=== PATIENT | female | born 2005 | race Hispanic/Latino ===

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

== ENCOUNTER 2024-09-25 22:44 | Emergency (ER) | payer BC, OTHER ==
--- OUTSIDE RECORDS SUMMARY | 2024-09-25 22:52 | XMS REPORT | Continuity of Care Document ---
Author Name Unknown Address [address] [facility] Ravindra[address] [place] [address] [facility] Address [address] [facility]. 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 Role Phone OLGA DURAND Primary Care Physician Unavailab Sergio Finley Attending Clinician + [phone] SERGIO LEON Attending Clinician Unavail able Doctor Unassigned, [place] Attending Clinician U RAUL Curiel Attending Clinician Unavailable Raul Soriano Attending Clinician [phone] Eri Jackson Attending Clinician [phone] CASSANDRA ELIZONDO Attending Clinician Unavailable ELOISE LONG Attending Clinician Unavailable BRONWYN MAGALLANES Attending Clinician Unavailable Tri Solomon MD Attending Clinician [phone] TRI SOLOMON Attending Clinician Unavailable MICHELE CHAMBERS III Attending Clinician Unavaila TRI Silva Admitting Clinician Unavailable MICHELE CHAMBERS III Admitting Clinician Unavaila kasey Payers Payer Name Policy Type Policy Number Effective Date Expirati on Date Source [facility] [id number] 2016 00:00:00 Problems Condition Name Condition Details Condition Category Status Onset Date Resolution Date Last Treatment Date Treating Clinician Comments Source No known active problems No known active problems Disease [facility] Allergies, Adverse Reactions, Alerts Allergy Name Allergy Type Status Severity Reaction(s) Onset Date Inactive Date Treating Clinician Comments Source NO KNOWN ALLERGIE S Drug Class Active [facility] Social History Social Habit Start Date Stop Date Quantity Comments Source Sexual orientation U [facility] Exposure to SARS-CoV-2 (event) Not sure [facility] History of Social function 2021-11-10 00:00:00 2021-11-10 00:00:00 [facility] Sex assigned at 2003 00:00:00 2005 00:00:00 [facility] Smoking Status Start Date Stop Date Source Never smoked tobacco [facility] Medications Ordered Medication Name Filled Medication Name Start Date Stop Date Current Medication? Ordering Clinician Indication Dosage Frequency Signature (SIG) Comments Components Source Carafate 1 gram tablet - 00:00: 00 Yes 1gram Earnest Foy ondansetron 4 mg disintegrat ing tablet - 00:00: 00 Yes 12mg Earnest Foy metronidazo le 500 mg tablet - 00:00: 00 Yes 1mg Earnest Foy buspirone 5 mg tablet - 00:00: 00 Yes 12mg Earnest Foy buspirone 5 mg tablet 5-08 00:00: 00 Yes 1mg Earnest Foy medroxyprog esterone 10 mg tablet -29 00:00: 00 Yes 2mg Earnest Foy metronidazo le 500 mg tablet 4-17 00:00: 00 Yes 1mg Earnest Foy buspirone 10 mg tablet 4-16 00:00: 00 Yes 1mg Earnest Foy metronidazo le 500 mg tablet 3- 00:00: 00 Yes 1mg Earnest Foy azithromyci n 500 mg tablet 3-26 00:00: 00 Yes 1mg Earnest Foy 1 TABLET TWICE DAILY X 7 DAYS 1-12 00:00: 00 12-09 00:00 :00 No 500 Earnest Foy MUPIROCIN OIN 2% 1-03 00:00: 00 Yes Earnest Foy TAKE 1 TABLET EVERY 6 TO 8 HOURS NEEDED. 2022-07 00:00: 00 12-09 00:00 :00 No 400 Earnest Foy TAKE 1 TABLET EVERY 8 HOURS NEEDED FOR NAUSEA AND VOMITING. 2022-07 00:00: 00 12-09 00:00 :00 No 8 Earnest Foy TAKE 1 CAPSULE TWICE DAILY. 2022-07 00:00: 00 12-09 00:00 :00 No 300 Earnest Foy MUPIROCIN OIN 2% 2022-07 00:00: 00 12-09 00:00 :00 No Earnest Foy METRONIDAZO L 04-22 00:00: 00 12-09 00:00 :00 No Earnest Foy 1 TABLET TWICE DAILY X 7 DAYS 04-21 00:00: 00 12-09 00:00 :00 No 500 Earnest Foy TAKE 5 ML EVERY 4 TO 6 HOURS NEEDED. 03-27 00:00: 00 12-09 00:00 :00 No [id number] Earnest Foy 2 TABS OF NIRMATRELVI R 150MG AND 1 TAB OF RITONAVIR 100MG TWICE A DAY FOR 5 DAYS 03-27 00:00: 00 12-09 00:00 :00 No Earnest Foy 1 TABLET TWICE DAILY X 7 DAYS 03-27 00:00: 00 12-09 00:00 :00 No 500 Earnest Foy ondansetron (ZOFRAN (PF)) injection 4 mg 11-11 05:30: 00 11-11 04:31 :00 No 4mg 4 mg, Slow IV Push, ONCE, 1 dose, On 11/11/21 at 0030, BANDAR [facility] ondansetron (ZOFRAN (PF)) injection 4 mg 11-11 04:45: 00 11-11 03:48 :00 No 4mg 4 mg, Slow IV Push, ONCE, 1 dose, On 11/10/21 at 2345, BANDAR [facility] famotidine (PEPCID (PF)) injection 20 mg 11-11 04:45: 00 11-11 03:48 :00 No 20mg 20 mg, Slow IV Push, ONCE, 1 dose, On 11/10/21 at 2345, BANDAR [facility] dicyclomine (BENTYL) injection 20 mg 11-11 04:45: 00 11-11 03:49 :00 No 20mg 20 mg, Intramuscu lar, ONCE, 1 dose, On 11/10/21 at 2345, Routine [facility] NaCl 0.9% (NS) bolus infusion 1,000 mL 11-11 04:45: 00 11-11 04:51 :00 No 1000mL at 999 mL/hr, 1,000 mL, IV Infusion, ONCE, 1 dose, On 11/10/21 at 2345, STAT [facility] ASPIRIN (ASPIR-81 ORAL) 11-10 22:34: 03 Yes Take by mouth. [facility] ondansetron 4 mg tablet 11-10 00:00: 00 Yes [id number] 4mg Take 1 tablet by mouth every 8 (eight) hours as needed for Nausea and Vomiting (N/V). [facility] dicyclomine 20 mg tablet 11-10 00:00: 00 Yes [id number] 20mg Take 1 tablet by mouth 4 (four) times daily as needed for Abdominal pain. [facility] omeprazole 40 mg capsule 11-10 00:00: 00 12-11 04:59 :00 No [id number] 40mg Take 1 capsule by mouth daily for 30 days. [facility] amoxicillin -clavulanat e (AUGMENTIN) 875-125 mg per tablet 1 tablet 02-10 20:45: 00 02-10 19:42 :00 No 1{tbl} 1 tablet, Oral, ONCE NOW, 1 dose, 02/10/21 at 1545, BANDAR
Re ason for Anti-Infec tive: Documented Infection< br>Documen sundeep Infection Site: Skin / Soft Tissue
Duration of Therapy: 7 days [facility] clindamycin (CLEOCIN HCL) capsule 300 mg 02-10 20:45: 00 02-10 19:42 :00 No 300mg 300 mg, Oral, ONCE NOW, 1 dose, 02/10/21 at 1545, BANDAR
Re ason for Anti-Infec tive: Documented Infection< br>Documen sundeep Infection Site: Skin / Soft Tissue
Duration of Therapy: 7 days
Re stricted use approved by: ED PROVIDER<b r>Indicati on for Clindamyci n use: preseptal cellulitis [facility] clindamycin 300 mg capsule 02-10 00:00: 00 02-18 04:59 :00 No [id number] 300mg Take 1 capsule by mouth 3 (three) times daily for 7 days. [facility] amoxicillin -clavulanat e 875-125 mg per tablet 02-10 00:00: 00 02-18 04:59 :00 No [id number] 1{tbl} Take 1 tablet by mouth 2 (two) times daily for 7 days. [facility] ASPIRIN (ASPIR-81 ORAL) 09-23 01:21: 12 Yes Take by mouth. [facility] naproxen 375 mg tablet 09-22 00:00: 00 11-10 00:00 :00 No [id number] 375mg Take 1 tablet by mouth 2 (two) times daily with meals. [facility] Nitrofurant oin&Nit. Macrocryst (MACROBID) 100 mg capsule 09-22 00:00: 00 11-10 00:00 :00 No [id number] 100mg Take 1 capsule by mouth 2 (two) times daily. [facility] phenazopyri dine 200 mg tablet 09-22 00:00: 00 11-10 00:00 :00 No [id number] 200mg Take 1 tablet by mouth 3 (three) times daily. [facility] proMETHazin e 25 mg tablet 2018-07 00:00: 00 11-10 00:00 :00 No [id number] 25mg Take 1 tablet by mouth every 6 (six) hours as needed for Nausea and Vomiting (N/V). [facility] Immunizations Ordered Immunization Name Filled Immunization Name Date Status Comments Source Hep B, adult Hep B, adult 2024-02-27 00:00:00 Completed Earnest Foy Influenza, injectable, Madin [place] Canine Kidney, preservative-free, quadrivalent Influenza, injectable, Madin [place] Canine Kidney, preservative-free, quadrivalent 2023-08-05 00:00:00 Completed Earnest Foy influenza, injectable influenza, injectable 2022-09-02 00:00:00 Completed Earnest Foy meningococcal B, OMV meningococcal B, OMV 2021-10-30 00:00:00 Completed Earnest Foy influenza, injectable influenza, injectable 2021-07-13 00:00:00 Completed Earnest Foy meningococcal B, OMV meningococcal B, OMV 2020-11-24 00:00:00 Completed Earnest Foy HPV9 HPV9 2020-11-24 00:00:00 Completed Earnest Foy meningococcal MCV4P meningococcal MCV4P 00:00:00 Completed Earnest Foy SARS-COV-2 COVID-19 MODERNA VACCINE 2020-09-05 00:00:00 Completed [facility] SARS-COV-2 COVID-19 MODERNA 12+ YRS VACCINE 2020-09-05 00:00:00 Completed [facility] SARS-COV-2 COVID-19 MODERNA VACCINE 2020-09-05 00:00:00 Completed [facility] SARS-COV-2 COVID-19 MODERNA VACCINE 2020-09-05 00:00:00 Completed [facility] SARS-COV-2 COVID-19 MODERNA VACCINE 2020-08-08 00:00:00 Completed [facility] SARS-COV-2 COVID-19 MODERNA 12+ YRS VACCINE 2020-08-08 00:00:00 Completed [facility] SARS-COV-2 COVID-19 MODERNA VACCINE 2020-08-08 00:00:00 Completed [facility] SARS-COV-2 COVID-19 MODERNA VACCINE 2020-08-08 00:00:00 Completed [facility] influenza, live, intrana influenza, live, intrana 2018-08-06 00:00:00 Completed Earnest Foy HPV9 HPV9 2018-02-24 00:00:00 Completed Earnest Foy meningococcal MCV4P meningococcal MCV4P 00:00:00 Completed Earnest Foy Tdap Tdap 2014-12-09 00:00:00 Completed Earnest Oliver Foy influenza, injectable influenza, injectable 2013-06-29 00:00:00 Completed Earnest Foy influenza, live, intrana influenza, live, intrana 2011-07-01 00:00:00 Completed Earnest Foy Hep A, ped/adol, 2 dose Hep A, ped/adol, 2 dose 2008-12-15 00:00:00 Completed Earnest Oliver Foy varicella varicella 2007-10-29 00:00:00 Completed Earnest Oliver Foy pneumococcal conjugate P pneumococcal conjugate P 2007-08-11 00:00:00 Completed Earnest Oliver Foy DTaP, unspecified formul DTaP, unspecified formul 2007-08-11 00:00:00 Completed Earnest Foy Hep A, ped/adol, 2 dose Hep A, ped/adol, 2 dose 2007-07-10 00:00:00 Completed Earnest Oliver Foy MMR MMR 2007-07-10 00:00:00 Completed Earnest Foy IPV IPV 2007-07-10 00:00:00 Completed Earnest Foy DTaP, unspecified formul DTaP, unspecified formul 2007-07-10 00:00:00 Completed Earnest Oliver Foy Influenza, seasonal, inj Influenza, seasonal, inj 2004-06-12 00:00:00 Completed Earnest Oliver Foy Hib (PRP-T) Hib (PRP-T) 2004-06-12 00:00:00 Completed Earnest Oliver Foy MMR MMR 2004-06-12 00:00:00 Completed Earnest Oliver Foy varicella varicella 2004-06-12 00:00:00 Completed Earnest Oliver Law Hep B, adolescent or ped Hep B, adolescent or ped 2004-01-20 00:00:00 Completed Earnest Oliver Law Hib (PRP-T) Hib (PRP-T) 2004-01-20 00:00:00 Completed Earnest Oliver Law IPV IPV 2004-01-20 00:00:00 Completed Earnest Foy DTaP, unspecified formul DTaP, unspecified formul 2004-01-20 00:00:00 Completed Earnest Foy Hib (PRP-T) Hib (PRP-T) 2003 00:00:00 Completed Earnest Foy pneumococcal conjugate P pneumococcal conjugate P 2003 00:00:00 Completed Earnest Foy IPV IPV 2003 00:00:00 Completed Earnest Foy DTaP, unspecified formul DTaP, unspecified formul 2003 00:00:00 Completed Earnest Foy Hep B, adolescent or ped Hep B, adolescent or ped 2003 00:00:00 Completed Earnest Foy Hib (PRP-T) Hib (PRP-T) 2003 00:00:00 Completed Earnest Foy pneumococcal conjugate P pneumococcal conjugate P 2003 00:00:00 Completed Earnest Foy IPV IPV 2003 00:00:00 Completed Earnest Foy DTaP, unspecified formul DTaP, unspecified formul 2003 00:00:00 Completed Earnest Foy Hep B, adolescent or ped Hep B, adolescent or ped 2003 00:00:00 Completed Earnest Foy SARS-COV-2 COVID-19 MODERNA 12+ YRS VACCINE Unknown Completed [facility] Vital Signs Vital Name Observation Time Observation Value Comments S ource Systolic blood pressure 2021-11-11 04:01:00 117 mm[Hg] [facility] Diastolic blood pressure 2021-11-11 04:01:00 78 mm[Hg] [facility] Heart rate 2021-11-11 04:01:00 86 /min [facility] Respiratory rate 2021-11-11 04:01:00 16 /min [facility] Oxygen saturation in Arterial blood by Pulse oximetry 2021-11-11 04:01:00 95 /min [facility] Body temperature 2021-11-11 03:38:20 36.89 Katarzyna [facility] Body height 2021-11-11 03:32:00 157.5 cm [facility] Body weight 2021-11-11 03:32:00 54.432 kg [facility] BMI 2021-11-11 03:32:00 21.95 kg/m2 [facility] Body mass index (BMI) [Percentile] Per age and sex 2021-11-11 03:32:00 56.73 % [facility] Systolic blood pressure 2021-02-10 17:20:00 114 mm[Hg] [facility] Diastolic blood pressure 2021-02-10 17:20:00 82 mm[Hg] [facility] Heart rate 2021-02-10 17:20:00 95 /min [facility] Body temperature 2021-02-10 17:20:00 36.78 Katarzyna [facility] Respiratory rate 2021-02-10 17:20:00 18 /min [facility] Body weight 2021-02-10 17:20:00 54.432 kg [facility] Oxygen saturation in Arterial blood by Pulse oximetry 2021-02-10 17:20:00 95 /min [facility] Systolic blood pressure 2019-09-23 03:00:00 128 mm[Hg] [facility] Diastolic blood pressure 2019-09-23 03:00:00 72 mm[Hg] [facility] Heart rate 2019-09-23 03:00:00 98 /min [facility] Respiratory rate 2019-09-23 03:00:00 18 /min [facility] Oxygen saturation in Arterial blood by Pulse oximetry 2019-09-23 03:00:00 98 /min [facility] Body temperature 2019-09-23 01:20:00 36.94 Katarzyna [facility] Body height 2019-09-23 01:20:00 157.5 cm [facility] Body weight 2019-09-23 01:20:00 52.164 kg [facility] BMI 2019-09-23 01:20:00 21.03 kg/m2 [facility] Systolic blood pressure 2019-09-23 03:00:00 128 mm[Hg] [facility] Diastolic blood pressure 2019-09-23 03:00:00 72 mm[Hg] [facility] Heart rate 2019-09-23 03:00:00 98 /min [facility] Respiratory rate 2019-09-23 03:00:00 18 /min [facility] Oxygen saturation in Arterial blood by Pulse oximetry 2019-09-23 03:00:00 98 /min [facility] Body temperature 2019-09-23 01:20:00 36.94 Katarzyna [facility] Body height 2019-09-23 01:20:00 157.5 cm [facility] Body weight 2019-09-23 01:20:00 52.164 kg [facility] BMI 2019-09-23 01:20:00 21.03 kg/m2 [facility] BP Systolic 2024-09-20 15:54:00 121 mm[Hg] Step hen F Law BP Diastolic 2024-09-20 15:54:00 67 mm[Hg] Ravindra phen F Law Weight Measured 2024-09-20 15:54:00 125.20 pounds Earnest F Law Height Measured 2024-09-20 15:54:00 62.00 inches Earnest F Law Body Temperature 2024-09-20 15:54:00 98.40 degrees Earnest F Law Heart Rate 2024-09-20 15:54:00 123.00 /min Step hen F [facility] Respiratory Rate 2024-09-20 15:54:00 14.00 /min Earnest F Law BP Systolic 2024-02-27 13:39:00 120 mm[Hg] Step hen F Law BP Diastolic 2024-02-27 13:39:00 75 mm[Hg] Ravindra phen F Law Weight Measured 2024-02-27 13:39:00 145.00 pounds Earnest F Law Height Measured 2024-02-27 13:39:00 62.00 inches Earnest F Law Body Temperature 2024-02-27 13:39:00 98.00 degrees Earnest F Law Heart Rate 2024-02-27 13:39:00 80.00 /min Kaylynn en F Law Respiratory Rate 2024-02-27 13:39:00 Earnest F Law BP Systolic 2024-02-23 16:34:00 124 mm[Hg] Step hen F Law BP Diastolic 2024-02-23 16:34:00 70 mm[Hg] Ravindra phen F Law Weight Measured 2024-02-23 16:34:00 145.60 pounds Earnest F Law Height Measured 2024-02-23 16:34:00 62.00 inches Earnest F Law Body Temperature 2024-02-23 16:34:00 98.00 degrees Earnest F Law Heart Rate 2024-02-23 16:34:00 86.00 /min Kaylynn en F Law Respiratory Rate 2024-02-23 16:34:00 Earnest F Law BP Systolic 2024-02-17 17:22:00 109 mm[Hg] Step hen F Law BP Diastolic 2024-02-17 17:22:00 67 mm[Hg] Ravindra phen F Law Weight Measured 2024-02-17 17:22:00 144.20 pounds Earnest F Law Height Measured 2024-02-17 17:22:00 62.00 inches Earnest F Law Body Temperature 2024-02-17 17:22:00 98.00 degrees Earnest F Law Heart Rate 2024-02-17 17:22:00 105.00 /min Step hen F Law Respiratory Rate 2024-02-17 17:22:00 Earnest F Law BP Systolic 2023-12-03 17:42:00 116 mm[Hg] Step hen F Law BP Diastolic 2023-12-03 17:42:00 72 mm[Hg] Ravindra phen F Law Weight Measured 2023-12-03 17:42:00 149.00 pounds Earnest F Law Height Measured 2023-12-03 17:42:00 62.00 inches Earnest F Law Body Temperature 2023-12-03 17:42:00 98.00 degrees Earnest F Law Heart Rate 2023-12-03 17:42:00 103.00 /min Step hen F Law Respiratory Rate 2023-12-03 17:42:00 Earnest F Law BP Systolic 2023-11-24 16:37:00 115 mm[Hg] Step hen F Law BP Diastolic 2023-11-24 16:37:00 75 mm[Hg] Ravindra phen F Law Weight Measured 2023-11-24 16:37:00 150.80 pounds Earnest F Law Height Measured 2023-11-24 16:37:00 62.00 inches Earnest F Law Body Temperature 2023-11-24 16:37:00 98.30 degrees Earnest F Law Heart Rate 2023-11-24 16:37:00 78.00 /min Kaylynn en F Law Respiratory Rate 2023-11-24 16:37:00 Earnest F Law BP Systolic 2023-11-11 17:26:00 120 mm[Hg] Step hen F Law BP Diastolic 2023-11-11 17:26:00 77 mm[Hg] Ravindra phen F Law Weight Measured 2023-11-11 17:26:00 150.80 pounds Earnest F Law Height Measured 2023-11-11 17:26:00 62.00 inches Earnest F Law Body Temperature 2023-11-11 17:26:00 98.20 degrees Earnest F Law Heart Rate 2023-11-11 17:26:00 75.00 /min Kaylynn en F Law Respiratory Rate 2023-11-11 17:26:00 Earnest F Law BP Systolic 2023-10-17 17:43:00 111 mm[Hg] Step hen F Law BP Diastolic 2023-10-17 17:43:00 60 mm[Hg] Ravindra phen F Law Weight Measured 2023-10-17 17:43:00 147.20 pounds Earnest F Law Height Measured 2023-10-17 17:43:00 62.00 inches Earnest F Law Body Temperature 2023-10-17 17:43:00 98.50 degrees Earnest F Law Heart Rate 2023-10-17 17:43:00 110.00 /min Step hen F Law Respiratory Rate 2023-10-17 17:43:00 Earnest F Law BP Systolic 2023-08-19 15:30:00 120 mm[Hg] Step hen F Law BP Diastolic 2023-08-19 15:30:00 72 mm[Hg] Ravindra phen F Law Weight Measured 2023-08-19 15:30:00 144.40 pounds Earnest F Law Height Measured 2023-08-19 15:30:00 62.00 inches Earnest F Law Body Temperature 2023-08-19 15:30:00 98.20 degrees Earnest F Law Heart Rate 2023-08-19 15:30:00 95.00 /min Kaylynn en F Law Respiratory Rate 2023-08-19 15:30:00 Earnest F Law BP Systolic 2023-08-08 10:53:00 101 mm[Hg] Step hen F Law BP Diastolic 2023-08-08 10:53:00 68 mm[Hg] Ravindra phen F Law Weight Measured 2023-08-08 10:53:00 145.20 pounds Earnest F Law Height Measured 2023-08-08 10:53:00 62.00 inches Earnest F Law Body Temperature 2023-08-08 10:53:00 98.10 degrees Earnest F Law Heart Rate 2023-08-08 10:53:00 138.00 /min Step hen F Law Respiratory Rate 2023-08-08 10:53:00 Earnest F Law BP Systolic 2023-08-05 17:11:00 113 mm[Hg] Step hen F Law BP Diastolic 2023-08-05 17:11:00 73 mm[Hg] Ravindra phen F Law Weight Measured 2023-08-05 17:11:00 145.00 pounds Earnest F Law Height Measured 2023-08-05 17:11:00 62.00 inches Earnest F Law Body Temperature 2023-08-05 17:11:00 98.00 degrees Earnest F Law Heart Rate 2023-08-05 17:11:00 90.00 /min Kaylynn en F Law Respiratory Rate 2023-08-05 17:11:00 Earnest F Law BP Systolic 2023-06-24 08:41:00 121 mm[Hg] Step hen F Law BP Diastolic 2023-06-24 08:41:00 67 mm[Hg] Ravindra phen F Law Weight Measured 2023-06-24 08:41:00 142.20 pounds Earnest F Law Height Measured 2023-06-24 08:41:00 62.00 inches Earnest F Law Body Temperature 2023-06-24 08:41:00 97.80 degrees Earnest F Law Heart Rate 2023-06-24 08:41:00 88.00 /min Kaylynn en F Law Respiratory Rate 2023-06-24 08:41:00 Earnest F Law BP Systolic 2023-06-17 17:26:00 118 mm[Hg] Step hen F Law BP Diastolic 2023-06-17 17:26:00 70 mm[Hg] Ravindra phen F Law Weight Measured 2023-06-17 17:26:00 141.20 pounds Earnest F Law Height Measured 2023-06-17 17:26:00 62.00 inches Earnest F Law Body Temperature 2023-06-17 17:26:00 98.00 degrees Earnest F Law Heart Rate 2023-06-17 17:26:00 85.00 /min Kaylynn en F Law Respiratory Rate 2023-06-17 17:26:00 Earnest F Law BP Systolic 2023-05-13 17:08:00 127 mm[Hg] Step hen F Law BP Diastolic 2023-05-13 17:08:00 85 mm[Hg] Ravindra phen F Law Weight Measured 2023-05-13 17:08:00 136.00 pounds Earnest F Law Height Measured 2023-05-13 17:08:00 62.00 inches Earnest F Law Body Temperature 2023-05-13 17:08:00 98.70 degrees Earnest F Law Heart Rate 2023-05-13 17:08:00 85.00 /min Kaylynn en F Law Respiratory Rate 2023-05-13 17:08:00 Earnest F Law BP Systolic 2023-04-21 17:25:00 105 mm[Hg] Step hen F Law BP Diastolic 2023-04-21 17:25:00 84 mm[Hg] Ravindra phen F Law Weight Measured 2023-04-21 17:25:00 135.60 pounds Earnest F Law Height Measured 2023-04-21 17:25:00 62.00 inches Earnest F Law Body Temperature 2023-04-21 17:25:00 98.80 degrees Earnest F Law Heart Rate 2023-04-21 17:25:00 95.00 /min Kaylynn en F Law Respiratory Rate 2023-04-21 17:25:00 18.00 /min Earnest F Law Procedures Procedure Date / Time Performed Performing Clinicia n Source QUANTIFERON-TB ASSAY 2024-07-16 19:30:00 Dilshad Leon [facility] REFERRAL- REQUEST/RESPONSE 2023-09-12 06:01:00 Doctor Unassigned, [place] [facility] LIPASE 2021-11-11 03:46:00 Susan, Cynise [facility] HEPATIC FUNCTION PANEL ([id number]) (ALB,T.PRO,BILI T,BU/BC,ALT,AST,ALK PHOS) 2021-11-11 03:46:00 Raul Woods [facility] BASIC METABOLIC PANEL (NA, K, CL, CO2, GLUCOSE, BUN, CREATININE, CA) 2021-11-11 03:46:00 [facility] CBC WITH DIFF 2021-11-11 03:46:00 Raul Woods [facility] URINALYSIS 2021-11-11 03:42:00 [facility] POCT TEST 2021-11-11 03:40:[address] [facility] NOTICE OF PRIVACY PRACTICES 2021-11-11 03:23:19 Doctor Unassigned, [place] [facility] CONSENT/REFUSAL FOR DIAGNOSIS AND TREATMENT 2021-11-11 03:21:27 Doctor Unassigned, [place] [facility] CONSENT/REFUSAL FOR DIAGNOSIS AND TREATMENT 2021-02-10 17:07:20 Doctor Unassigned, [place] [facility] NOTICE OF PRIVACY PRACTICES 2021-02-10 17:07:05 Doctor Unassigned, [place] [facility] ASSIGNMENT OF BENEFITS 2020-02-14 20:20:25 Docto r Unassigned, [place] [facility] REFERRAL- REQUEST/RESPONSE 2020-01-12 05:01:00 Doctor Unassigned, [place] [facility] US OVARY TORSION 2019-09-23 02:23:19 Tri Solomon [facility] URINALYSIS 2019-09-23 01:25:00 Tri Solomon [facility] POCT TEST 2019-09-23 01:25:00 Tri Solomon [facility] NOTICE OF PRIVACY PRACTICES 2019-09-23 01:11:44 Doctor Unassigned, [place] [facility] CONSENT/REFUSAL FOR DIAGNOSIS AND TREATMENT 2019-09-23 01:11:31 Doctor Unassigned, [place] [facility] Encounters Start Date/Time End Date/Time Encounter Type Admission Type Attending Clinicians Care Facility Care Department Encounter ID Source 2021-05-28 08:51:48 Emergency [facility] [id number] [facility] 2024-09-22 17:22:58 2024-09-22 17:22:[address] [facility] [id number] Earnest Foy 2024-09-21 16:56:47 2024-09-21 16:56:47 Outpatient [facility] [id number] Earnest Foy 2024-09-20 15:40:06 2024-09-20 15:40:06 Outpatient [facility] JACKI [id number] Earnest Foy 2024-09-20 00:00:00 2024-09-20 00:00:00 Outpatient Visit [facility] [id number] Earnest Foy 2024-07-16 13:10:00 2024-07-16 23:59:00 Hospital Encounter Sergio Leon [facility] BLD[facility]. [id number] [facility] 2024-07-16 00:00:00 2024-07-16 23:59:00 Outpatient SERGIO CANTU [facility] [id number] [facility] 2024-02-27 13:31:55 2024-02-27 13:31:[address] [facility] [facility] [id number] Earnest Foy 2024-02-23 16:33:52 2024-02-23 16:33:[address] [facility] [facility] [id number] Earnest Foy 2024-02-23 00:00:00 2024-02-23 00:00:00 Outpatient Visit [facility] [id number] Earnest Foy 2024-02-17 17:22:19 2024-02-17 17:22:[address] [facility] [id number] Earnest Foy 2024-02-17 00:00:00 2024-02-17 00:00:00 Outpatient Visit SFA [id number] Earnest Foy 2023-12-03 17:42:30 2023-12-03 17:42:30 Outpatient SFA SFA [id number] Earnest Foy 2023-12-03 00:00:00 2023-12-03 00:00:00 Outpatient Visit SFA [id number] Earnest Foy 2023-11-24 16:37:17 2023-11-24 16:37:17 Outpatient SFA SFA 0429 Earnest Foy 2023-11-24 00:00:00 2023-11-24 00:00:00 Outpatient Visit SFA [id number] Earnest Foy 2023-11-12 11:09:34 2023-11-12 11:09:34 Outpatient SFA SFA 0417 Earnest Foy 2023-11-11 17:25:53 2023-11-11 17:25:53 Outpatient SFA SFA 0416 Earnest Foy 2023-11-11 00:00:00 2023-11-11 00:00:00 Outpatient Visit SFA [id number] Earnest Foy 2023-10-17 17:43:11 2023-10-17 17:43:11 Outpatient SFA SFA [id number] Earnest Foy 2023-09-30 13:04:44 2023-09-30 13:04:44 Outpatient SFA SFA 0305 Earnest Foy 2023-09-12 00:00:00 2023-09-12 00:00:00 Orders Only Doctor Unassigned, [place] [facility] 1.2.840.114 350.1.13.10 4.2.7.2.686 [id number] [facility] 2023-08-19 15:30:01 2023-08-19 15:30:01 Outpatient SFA SFA 0123 Earnest Foy 2023-08-19 00:00:00 2023-08-19 00:00:00 Outpatient Visit SFA [id number] Earnest Foy 2023-08-08 10:52:43 2023-08-08 10:52:43 Outpatient SFA SFA 111 Earnest Foy 2023-06-24 08:42:38 2023-06-24 08:42:38 Outpatient SFA SFA 112 Earnest Foy 2023-06-17 17:26:14 2023-06-17 17:26:14 Outpatient SFA SFA 1121 Earnest Foy 2023-06-17 00:00:00 2023-06-17 00:00:00 Outpatient Visit SFA [id number] Earnest Foy 2023-05-13 17:13:21 2023-05-13 17:13:21 Outpatient SFA SFA 1017 Earnest Foy 2023-05-13 00:00:00 2023-05-13 00:00:00 Outpatient Visit SFA [id number] Earnest Foy 2023-04-21 17:24:56 2023-04-21 17:24:56 Outpatient SFA SFA 0925 Earnest Foy 2023-04-02 14:25:24 2023-04-02 14:25:24 Outpatient SFA SFA 0906 Earnest Foy 2023-03-27 08:45:59 2023-03-27 08:45:59 Outpatient SFA SFA 0831 Earnest Foy 2023-03-27 00:00:00 2023-03-27 00:00:00 Outpatient Visit SFA [id number] Earnest Foy 2023-03-24 17:33:27 2023-03-24 17:33:[address] [facility] [id number] 0828 Earnest Foy 2021-11-10 22:35:00 2021-11-10 23:53:00 Emergency X RAUL WOODS [facility] ERT [id number] [facility] 2021-11-10 22:35:00 2021-11-10 23:53:00 Emergency Raul Woods [facility] 1.2.840.114 350.1.13.10 4.2.7.2.686 [id number] [facility] 2021-02-10 12:25:00 2021-02-10 14:52:00 Emergency Eri [facility] 1.2.840.114 350.1.13.10 4.2.7.2.686 [id number] [facility] 2021-02-10 00:00:00 2021-02-10 00:00:00 Orders Only Doctor Unassigned, [place] [facility] 1.2.840.114 350.1.13.10 4.2.7.2.686 [id number] [facility] 2020-09-05 13:40:00 2020-09-05 13:40:00 Outpatient CASSANDRA BARRAZA [facility] [id number] [facility] 2020-08-08 14:20:00 2020-08-08 14:20:00 Outpatient CASSANDRA BARRAZA [facility] [id number] [facility] 2020-02-24 14:00:00 2020-02-24 14:00:00 Outpatient ELOISE GASTON [facility] [id number] [facility] 2020-02-14 15:00:00 2020-02-14 15:00:00 Outpatient BRONWYN PARISI [facility] [id number] [facility] 2020-02-14 00:00:00 2020-02-14 00:00:00 Orders Only Doctor Unassigned, [place] [facility] 1.2.840.114 350.1.13.10 4.2.7.2.686 [id number] 2020-02-14 00:00:00 2020-02-14 00:00:00 Orders Only Doctor Unassigned, [place] [facility] 1.2.840.114 350.1.13.10 4.2.7.2.686 [id number] [facility] 2020-01-12 00:00:00 2020-01-12 00:00:00 Orders Only Doctor Unassigned, [place] [facility] 1.2.840.114 350.1.13.10 4.2.7.2.686 [id number] 2020-01-12 00:00:00 2020-01-12 00:00:00 Orders Only Doctor Unassigned, [place] [facility] 1.2.840.114 350.1.13.10 4.2.7.2.686 [id number] [facility] 2019-09-22 19:16:51 2019-09-22 21:07:00 Emergency rTi Solomon [facility] 1.2.840.114 350.1.13.10 4.2.7.2.686 [id number] 2019-09-22 19:16:51 2019-09-22 21:07:00 Emergency Tri Solomon [facility] 1.2.840.114 350.1.13.10 4.2.7.2.686 [id number] [facility] 2019-09-22 19:16:51 2019-09-22 21:07:00 Emergency X TRI SOLOMON [facility] ERT [id number] [facility] 2019-07-23 19:24:22 2019-07-23 23:18:00 Emergency X MICHELE CHAMBERS III [facility] ERT [id number] [facility] Results Test Description Test Time Test Comments Results Result Co [facility]ments Source [facility], [id number] 16:30:20* Test Item Value Reference Range Interpretation Comme nts CHLAMYDIA, NAAT, URINE (test code = 67143) NEGATIVE NEGATIVE Testing is perfo rmed with Aubrey BRUNO 6800/8800 systems usingreal-time polymerase chain reaction (PCR) method. Testing is performed with Aubrey BRUNO 6800/8800 systems usingreal-time polymerase chain reaction (PCR) method. A negative result does not exclude low level infection, specimensampling error, or collection error. GONORRHEA, NAAT, URINE (test code = 50856) NEGATIVE NEGATIVE Testing is perfo rmed with Aubrey BRUNO 6800/8800 systems usingreal-time polymerase chain reaction (PCR) method. Testing is performed with Aubrey BRUNO 6800/8800 systems usingreal-time polymerase chain reaction (PCR) method. A negative result does not exclude low level infection, specimensampling error, or collection error. VAGINAL PATHOGENS DNA [id number] 14:06:10* Test Item Value Reference Range Interpretation Comme nts RAFAELA SPECIES (test code = 38875) NEGATIVE NEGATIVE G. VAGINALIS (test code = 85128) POSITIVE NEGATIVE A T. VAGINALIS (test code = 65847) NEGATIVE NEGATIVE Note: The BD [facility] VPIII Microbial Identification Testis a DNA probe test intended for use in the detectionand identification of Rafaela species, Gardnerellavaginalis and Trichomonas vaginalis nucleic acid. UNLESS OTHERWISE INDICATED, ALL TESTING PERFORMED AT [facility] [address] [place] [address] PUPPY WALKER: JOLEEN MORENO M.D. CLIA NUMBER [id number] [place]. [id number] CT/NG, NAAT, [id number] 00:00:00* Test Item Value Reference Range Interpretation Comme nts CHLAMYDIA, NAAT, URINE (test code = 81282) NEGATIVE GONORRHEA, NAAT, URINE (test code = 36293) NEGATIVE Earnest FoyVAGINAL PATHOGENS DNA [id number] 00:00:00* Test Item Value Reference Range Interpretation Comme nts RAFAELA SPECIES (test code = ) NEGATIVE G. VAGINALIS (test code = 30145) POSITIVE T. VAGINALIS (test code = ) NEGATIVE Earnest Boyd AustinCT/NG, NAAT, [id number] 00:00:00* Test Item Value Reference Range Interpretation Comme nts CHLAMYDIA, NAAT, URINE (test code = 81987) NEGATIVE GONORRHEA, NAAT, URINE (test code = 68795) NEGATIVE Earnest Boyd AustinVAGINAL PATHOGENS DNA [id number] 00:00:00* Test Item Value Reference Range Interpretation Comme nts RAFAELA SPECIES (test code = ) NEGATIVE G. VAGINALIS (test code = 15686) POSITIVE T. VAGINALIS (test code = ) NEGATIVE Earnest F AustinCT/NG, NAAT, [id number] 00:00:00* Test Item Value Reference Range Interpretation Comme nts CHLAMYDIA, NAAT, URINE (test code = 25762) NEGATIVE GONORRHEA, NAAT, URINE (test code = 83298) NEGATIVE Earnest Boyd AustinVAGINAL PATHOGENS DNA [id number] 00:00:00* Test Item Value Reference Range Interpretation Comme nts RAFAELA SPECIES (test code = ) NEGATIVE G. VAGINALIS (test code = ) POSITIVE T. VAGINALIS (test code = ) NEGATIVE Earnest Boyd AustinCT/NG, NAAT, [id number] 00:00:00* Test Item Value Reference Range Interpretation Comme nts CHLAMYDIA, NAAT, URINE (test code = 26534) NEGATIVE GONORRHEA, NAAT, URINE (test code = 32406) NEGATIVE Earnest Boyd AustinVAGINAL PATHOGENS DNA [id number] 00:00:00* Test Item Value Reference Range Interpretation Comme nts RAFAELA SPECIES (test code = ) NEGATIVE G. VAGINALIS (test code = 04118) POSITIVE T. VAGINALIS (test code = 25528) NEGATIVE Earnest F AustinCT/NG, NAAT, [id number] 00:00:00* Test Item Value Reference Range Interpretation Comme nts CHLAMYDIA, NAAT, URINE (test code = 96540) NEGATIVE GONORRHEA, NAAT, URINE (test code = 99780) NEGATIVE Earnest F AustinVAGINAL PATHOGENS DNA [id number] 00:00:00* Test Item Value Reference Range Interpretation Comme nts RAFAELA SPECIES (test code = ) NEGATIVE G. VAGINALIS (test code = 69492) POSITIVE T. VAGINALIS (test code = ) NEGATIVE Earnest Boyd AustinCT/NG, NAAT, [id number] 00:00:00* Test Item Value Reference Range Interpretation Comme nts CHLAMYDIA, NAAT, URINE (test code = 27526) NEGATIVE GONORRHEA, NAAT, URINE (test code = 93252) NEGATIVE Earnest Boyd AustinVAGINAL PATHOGENS DNA [id number] 00:00:00* Test Item Value Reference Range Interpretation Comme nts RAFAELA SPECIES (test code = ) NEGATIVE G. VAGINALIS (test code = 59136) POSITIVE T. VAGINALIS (test code = ) NEGATIVE Earnest Boyd AustinCT/NG, NAAT, [id number] 00:00:00* Test Item Value Reference Range Interpretation Comme nts CHLAMYDIA, NAAT, URINE (test code = 69438) NEGATIVE GONORRHEA, NAAT, URINE (test code = 80701) NEGATIVE Earnest Boyd AustinVAGINAL PATHOGENS DNA [id number] 00:00:00* Test Item Value Reference Range Interpretation Comme nts RAFAELA SPECIES (test code = ) NEGATIVE G. VAGINALIS (test code = 10427) POSITIVE T. VAGINALIS (test code = ) NEGATIVE Earnest Boyd AustinCT/NG, NAAT, [id number] 00:00:00* Test Item Value Reference Range Interpretation Comme nts CHLAMYDIA, NAAT, URINE (test code = 42346) NEGATIVE GONORRHEA, NAAT, URINE (test code = 82696) NEGATIVE Earnest Boyd AustinVAGINAL PATHOGENS DNA [id number] 00:00:00* Test Item Value Reference Range Interpretation Comme nts RAFAELA SPECIES (test code = ) NEGATIVE G. VAGINALIS (test code = 03949) POSITIVE T. VAGINALIS (test code = 93536) NEGATIVE Earnest F AustinCT/NG, NAAT, [id number] 00:00:00* Test Item Value Reference Range Interpretation Comme nts CHLAMYDIA, NAAT, URINE (test code = 26093) NEGATIVE GONORRHEA, NAAT, URINE (test code = 54443) NEGATIVE Earnest FoyVAGINAL PATHOGENS DNA [id number] 00:00:00* Test Item Value Reference Range Interpretation Comme nts RAFAELA SPECIES (test code = ) NEGATIVE G. VAGINALIS (test code = 01508) POSITIVE T. VAGINALIS (test code = 54260) NEGATIVE Earnest Boyd AustinCT/NG, NAAT, [id number] 15:17:01* Test Item Value Reference Range Interpretation Comme nts CHLAMYDIA, NAAT, URINE (test code = 20630) NEGATIVE NEGATIVE Testing is perfo rmed with Aubrey BRUNO 6800/8800 systems usingreal-time polymerase chain reaction (PCR) method. A negative result does not exclude low level infection, specimensampling error, or collection error. GONORRHEA, NAAT, URINE (test code = 86574) NEGATIVE NEGATIVE Testing is perfo rmed with Aubrey BRUNO 6800/8800 systems usingreal-time polymerase chain reaction (PCR) method. A negative result does not exclude low level infection, specimensampling error, or collection error. VAGINAL PATHOGENS DNA [id number] 12:20:15* Test Item Value Reference Range Interpretation Comme nts RAFAELA SPECIES (test code = ) NEGATIVE NEGATIVE G. VAGINALIS (test code = 02233) POSITIVE NEGATIVE A T. VAGINALIS (test code = 32484) NEGATIVE NEGATIVE Note: The BD [facility] VPIII Microbial Identification Testis a DNA probe test intended for use in the detectionand identification of Rafaela species, Gardnerellavaginalis and Trichomonas vaginalis nucleic acid. HIV 1/2 4TH GEN, RFLX [id number] 05:03:00* Test Item Value Reference Range Interpretation Comme nts HIV 1/2 4TH GEN, RFLX CONF ( test code = 3514) NON-REACTIVE NON-REACTIVE HEPATITIS PANEL, [id number] 05:03:00* Test Item Value Reference Range Interpretation Comments HEPATITIS A TOTAL AB (test code = 2725) REACTIVE NON-REACTIVE A HEPATITIS B SURF AG (test code = 2739) NON-REACTIVE NON-REACTIVE HEP B CORE TOTAL AB (test code = 2729) NON-REACTIVE NON-REACTIVE HEPATITIS B SURFACE AB (test code = 2737) NON-REACTIVE NON-REACTIVE HEPATITIS C ANTIBODY (test code = 4675) NON-REACTIVE NON-REACTIVE INTERPRETATION HEPATITIS A: (test code = 2552) (NOTE) Hepatitis A sero logy consistent with past exposure or previousvaccination to hepatitis A virus. No evidence of current acutehepatitis A infection. INTERPRETATION HEPATITIS B: (test code = 56805) (NOTE) Hepatitis B sero logy shows no evidence of past exposure to orcurrent infection with hepatitis B virus. No evidence of hepatitis Bimmunization is identified. INTERPRETATION HEPATITIS C: (test code = 66067) (NOTE) Hepatitis C sero logy shows no evidence of exposure to hepatitisC virus at this time. It can take up to 12 months after exposure tothe hepatitis C virus for antibodies to become detectable in the blood in certain patients. HEPATITIS A [id number] 05:03:00* Test Item Value Reference Range Interpretation Comme nts HEPATITIS A IgM (test code = 2728) NON-REACTIVE NON-REACTIVE UNLESS OTHERW ISE INDICATED, ALL TESTING PERFORMED AT [facility] [address] [place] [address] PUPPY WALKER: JOLEEN MORENO M.D. [place] NUMBER [id number] [facility] [place]. [id number] RPR REFLEX TO T. PALLIDUM - [id number] 02:41:15* Test Item Value Reference Range Interpretation Comme nts RPR (test code = 54071) NON-REACTIVE NON-REACTIVE RPR TITER (test code = 3500) NOT INDIC. TITER NOT INDIC. RPR REFLEX TO T. PALLIDUM - [id number] 00:00:00* Test Item Value Reference Range Interpretation Comme nts RPR (test code = 35988) NON-REACTIVE RPR TITER (test code = 3500) NOT INDIC. TITER Earnest Boyd AustinHIV 1/2 4TH GEN, RFLX [id number] 00:00:00* Test Item Value Reference Range Interpretation Comme nts HIV 1/2 4TH GEN, RFLX CONF ( test code = 3514) NON-REACTIVE Earnest Boyd AustinHEPATITIS PROFILE (A,B,C)2023-11-12 00:00:00* Test Item Value Reference Range Interpretation Comme nts HEPATITIS A TOTAL AB (test c ode = 2725) REACTIVE HEPATITIS B SURF AG (test co de = 2739) NON-REACTIVE HEP B CORE TOTAL AB (test co de = 2729) NON-REACTIVE HEPATITIS B SURFACE AB (test code = 2737) NON-REACTIVE HEPATITIS C ANTIBODY (test c ode = 4675) NON-REACTIVE INTERPRETATION HEPATITIS A: (test code = 2552) (NOTE) INTERPRETATION HEPATITIS B: (test code = 61566) (NOTE) INTERPRETATION HEPATITIS C: (test code = 50592) (NOTE) Earnest FoyVAGINAL PATHOGENS DNA [id number] 00:00:00* Test Item Value Reference Range Interpretation Comme nts RAFAELA SPECIES (test code = 75529) NEGATIVE G. VAGINALIS (test code = 73001) POSITIVE T. VAGINALIS (test code = 07719) NEGATIVE Earnest Boyd AustinHEPATITIS A IgM [REFLEX]2023-11-12 00:00:00* Test Item Value Reference Range Interpretation Comme nts HEPATITIS A IgM (test code = 2728) NON-REACTIVE Earnest Boyd AustinCT/NG, TMA, [id number] 00:00:00* Test Item Value Reference Range Interpretation Comme nts CHLAMYDIA, NAAT, URINE (test code = 87089) NEGATIVE GONORRHEA, NAAT, URINE (test code = 08941) NEGATIVE Earnest Boyd AustinRPR REFLEX TO T. PALLIDUM - [id number] 00:00:00* Test Item Value Reference Range Interpretation Comme nts RPR (test code = 49223) NON-REACTIVE RPR TITER (test code = 3500) NOT INDIC. TITER Earnest Boyd AustinHIV 1/2 4TH GEN, RFLX [id number] 00:00:00* Test Item Value Reference Range Interpretation Comme nts HIV 1/2 4TH GEN, RFLX CONF ( test code = 3514) NON-REACTIVE Earnest FoyHEPATITIS PROFILE (A,B,C)2023-11-12 00:00:00* Test Item Value Reference Range Interpretation Comme nts HEPATITIS A TOTAL AB (test c ode = 2725) REACTIVE HEPATITIS B SURF AG (test co de = 2739) NON-REACTIVE HEP B CORE TOTAL AB (test co de = 2729) NON-REACTIVE HEPATITIS B SURFACE AB (test code = 2737) NON-REACTIVE HEPATITIS C ANTIBODY (test c ode = 4675) NON-REACTIVE INTERPRETATION HEPATITIS A: (test code = 2552) (NOTE) INTERPRETATION HEPATITIS B: (test code = 98438) (NOTE) INTERPRETATION HEPATITIS C: (test code = 18271) (NOTE) Earnest Boyd AustinVAGINAL PATHOGENS DNA [id number] 00:00:00* Test Item Value Reference Range Interpretation Comme nts RAFAELA SPECIES (test code = 40507) NEGATIVE G. VAGINALIS (test code = 69806) POSITIVE T. VAGINALIS (test code = 75929) NEGATIVE Earnest Boyd AustinHEPATITIS A IgM [REFLEX]2023-11-12 00:00:00* Test Item Value Reference Range Interpretation Comme nts HEPATITIS A IgM (test code = 2728) NON-REACTIVE Earnest Boyd AustinCT/NG, TMA, [id number] 00:00:00* Test Item Value Reference Range Interpretation Comme nts CHLAMYDIA, NAAT, URINE (test code = 12382) NEGATIVE GONORRHEA, NAAT, URINE (test code = 48220) NEGATIVE Earnest Boyd AustinRPR REFLEX TO T. PALLIDUM - [id number] 00:00:00* Test Item Value Reference Range Interpretation Comme nts RPR (test code = 41595) NON-REACTIVE RPR TITER (test code = 3500) NOT INDIC. TITER Earnest Boyd AustinHIV 1/2 4TH GEN, RFLX [id number] 00:00:00* Test Item Value Reference Range Interpretation Comme nts HIV 1/2 4TH GEN, RFLX CONF ( test code = 3514) NON-REACTIVE Earnest FoyHEPATITIS PROFILE (A,B,C)2023-11-12 00:00:00* Test Item Value Reference Range Interpretation Comme nts HEPATITIS A TOTAL AB (test c ode = 2725) REACTIVE HEPATITIS B SURF AG (test co de = 2739) NON-REACTIVE HEP B CORE TOTAL AB (test co de = 2729) NON-REACTIVE HEPATITIS B SURFACE AB (test code = 2737) NON-REACTIVE HEPATITIS C ANTIBODY (test c ode = 4675) NON-REACTIVE INTERPRETATION HEPATITIS A: (test code = 2552) (NOTE) INTERPRETATION HEPATITIS B: (test code = 35205) (NOTE) INTERPRETATION HEPATITIS C: (test code = 83781) (NOTE) Earnest Boyd AustinVAGINAL PATHOGENS DNA [id number] 00:00:00* Test Item Value Reference Range Interpretation Comme nts RAFAELA SPECIES (test code = ) NEGATIVE G. VAGINALIS (test code = ) POSITIVE T. VAGINALIS (test code = ) NEGATIVE Earnest Boyd AustinHEPATITIS A IgM [REFLEX]2023-11-12 00:00:00* Test Item Value Reference Range Interpretation Comme nts HEPATITIS A IgM (test code = 2728) NON-REACTIVE Earnest Boyd AustinCT/NG, TMA, [id number] 00:00:00* Test Item Value Reference Range Interpretation Comme nts CHLAMYDIA, NAAT, URINE (test code = 68766) NEGATIVE GONORRHEA, NAAT, URINE (test code = 10769) NEGATIVE Earnest Boyd AustinRPR REFLEX TO T. PALLIDUM - [id number] 00:00:00* Test Item Value Reference Range Interpretation Comme nts RPR (test code = 82200) NON-REACTIVE RPR TITER (test code = 3500) NOT INDIC. TITER Earnest Boyd AustinHIV 1/2 4TH GEN, RFLX [id number] 00:00:00* Test Item Value Reference Range Interpretation Comme nts HIV 1/2 4TH GEN, RFLX CONF ( test code = 3514) NON-REACTIVE Earnest Boyd AustinHEPATITIS PROFILE (A,B,C)2023-11-12 00:00:00* Test Item Value Reference Range Interpretation Comme nts HEPATITIS A TOTAL AB (test c ode = 2725) REACTIVE HEPATITIS B SURF AG (test co de = 2739) NON-REACTIVE HEP B CORE TOTAL AB (test co de = 2729) NON-REACTIVE HEPATITIS B SURFACE AB (test code = 2737) NON-REACTIVE HEPATITIS C ANTIBODY (test c ode = 4675) NON-REACTIVE INTERPRETATION HEPATITIS A: (test code = 2552) (NOTE) INTERPRETATION HEPATITIS B: (test code = 20236) (NOTE) INTERPRETATION HEPATITIS C: (test code = 77733) (NOTE) Earnest Boyd AustinVAGINAL PATHOGENS DNA [id number] 00:00:00* Test Item Value Reference Range Interpretation Comme nts RAFAELA SPECIES (test code = ) NEGATIVE G. VAGINALIS (test code = ) POSITIVE T. VAGINALIS (test code = ) NEGATIVE Earnest Boyd AustinHEPATITIS A IgM [REFLEX]2023-11-12 00:00:00* Test Item Value Reference Range Interpretation Comme nts HEPATITIS A IgM (test code = 2728) NON-REACTIVE Earnest Boyd AustinCT/NG, TMA, [id number] 00:00:00* Test Item Value Reference Range Interpretation Comme nts CHLAMYDIA, NAAT, URINE (test code = 45211) NEGATIVE GONORRHEA, NAAT, URINE (test code = 57259) NEGATIVE Earnest Boyd AustinRPR REFLEX TO T. PALLIDUM - [id number] 00:00:00* Test Item Value Reference Range Interpretation Comme nts RPR (test code = 14979) NON-REACTIVE RPR TITER (test code = 3500) NOT INDIC. TITER Earnest Boyd AustinHIV 1/2 4TH GEN, RFLX [id number] 00:00:00* Test Item Value Reference Range Interpretation Comme nts HIV 1/2 4TH GEN, RFLX CONF ( test code = 3514) NON-REACTIVE Earnest Boyd AustinHEPATITIS PROFILE (A,B,C)2023-11-12 00:00:00* Test Item Value Reference Range Interpretation Comme nts HEPATITIS A TOTAL AB (test c ode = 2725) REACTIVE HEPATITIS B SURF AG (test co de = 2739) NON-REACTIVE HEP B CORE TOTAL AB (test co de = 2729) NON-REACTIVE HEPATITIS B SURFACE AB (test code = 2737) NON-REACTIVE HEPATITIS C ANTIBODY (test c ode = 4675) NON-REACTIVE INTERPRETATION HEPATITIS A: (test code = 2552) (NOTE) INTERPRETATION HEPATITIS B: (test code = 50718) (NOTE) INTERPRETATION HEPATITIS C: (test code = 77610) (NOTE) Earnest FoyVAGINAL PATHOGENS DNA [id number] 00:00:00* Test Item Value Reference Range Interpretation Comme nts RAFAELA SPECIES (test code = 40700) NEGATIVE G. VAGINALIS (test code = 68859) POSITIVE T. VAGINALIS (test code = 82716) NEGATIVE Earnest Boyd AustinHEPATITIS A IgM [REFLEX]2023-11-12 00:00:00* Test Item Value Reference Range Interpretation Comme nts HEPATITIS A IgM (test code = 2728) NON-REACTIVE Earnest Boyd AustinCT/NG, TMA, [id number] 00:00:00* Test Item Value Reference Range Interpretation Comme nts CHLAMYDIA, NAAT, URINE (test code = 10360) NEGATIVE GONORRHEA, NAAT, URINE (test code = 98929) NEGATIVE Earnest Boyd AustinRPR REFLEX TO T. PALLIDUM - [id number] 00:00:00* Test Item Value Reference Range Interpretation Comme nts RPR (test code = 38539) NON-REACTIVE RPR TITER (test code = 3500) NOT INDIC. TITER Earnest Boyd AustinHIV 1/2 4TH GEN, RFLX [id number] 00:00:00* Test Item Value Reference Range Interpretation Comme nts HIV 1/2 4TH GEN, RFLX CONF ( test code = 3514) NON-REACTIVE Earnest Boyd AustinHEPATITIS PROFILE (A,B,C)2023-11-12 00:00:00* Test Item Value Reference Range Interpretation Comme nts HEPATITIS A TOTAL AB (test c ode = 2725) REACTIVE HEPATITIS B SURF AG (test co de = 2739) NON-REACTIVE HEP B CORE TOTAL AB (test co de = 2729) NON-REACTIVE HEPATITIS B SURFACE AB (test code = 2737) NON-REACTIVE HEPATITIS C ANTIBODY (test c ode = 4675) NON-REACTIVE INTERPRETATION HEPATITIS A: (test code = 2552) (NOTE) INTERPRETATION HEPATITIS B: (test code = 21608) (NOTE) INTERPRETATION HEPATITIS C: (test code = 20375) (NOTE) Earnest FoyVAGINAL PATHOGENS DNA [id number] 00:00:00* Test Item Value Reference Range Interpretation Comme nts RAFAELA SPECIES (test code = 53514) NEGATIVE G. VAGINALIS (test code = 30490) POSITIVE T. VAGINALIS (test code = 88560) NEGATIVE Earnest Boyd AustinHEPATITIS A IgM [REFLEX]2023-11-12 00:00:00* Test Item Value Reference Range Interpretation Comme nts HEPATITIS A IgM (test code = 2728) NON-REACTIVE Earnest Boyd AustinCT/NG, TMA, [id number] 00:00:00* Test Item Value Reference Range Interpretation Comme nts CHLAMYDIA, NAAT, URINE (test code = 43356) NEGATIVE GONORRHEA, NAAT, URINE (test code = 16522) NEGATIVE Earnest Boyd AustinRPR REFLEX TO T. PALLIDUM - [id number] 00:00:00* Test Item Value Reference Range Interpretation Comme nts RPR (test code = 20356) NON-REACTIVE RPR TITER (test code = 3500) NOT INDIC. TITER Earnest FoyHIV 1/2 4TH GEN, RFLX [id number] 00:00:00* Test Item Value Reference Range Interpretation Comme nts HIV 1/2 4TH GEN, RFLX CONF ( test code = 3514) NON-REACTIVE Earnest Byod AustinHEPATITIS PROFILE (A,B,C)2023-11-12 00:00:00* Test Item Value Reference Range Interpretation Comme nts HEPATITIS A TOTAL AB (test c ode = 2725) REACTIVE HEPATITIS B SURF AG (test co de = 2739) NON-REACTIVE HEP B CORE TOTAL AB (test co de = 2729) NON-REACTIVE HEPATITIS B SURFACE AB (test code = 2737) NON-REACTIVE HEPATITIS C ANTIBODY (test c ode = 4698) NON-REACTIVE INTERPRETATION HEPATITIS A: (test code = 2552) (NOTE) INTERPRETATION HEPATITIS B: (test code = 86288) (NOTE) INTERPRETATION HEPATITIS C: (test code = 92996) (NOTE) Earnest FoyVAGINAL PATHOGENS DNA [id number] 00:00:00* Test Item Value Reference Range Interpretation Comme nts RAFAELA SPECIES (test code = 92695) NEGATIVE G. VAGINALIS (test code = 55358) POSITIVE T. VAGINALIS (test code = 04717) NEGATIVE Earnest FoyHEPATITIS A IgM [REFLEX]2023-11-12 00:00:00* Test Item Value Reference Range Interpretation Comme nts HEPATITIS A IgM (test code = 2728) NON-REACTIVE Earnest Boyd AustinCT/NG, TMA, [id number] 00:00:00* Test Item Value Reference Range Interpretation Comme nts CHLAMYDIA, NAAT, URINE (test code = 00764) NEGATIVE GONORRHEA, NAAT, URINE (test code = 80458) NEGATIVE Earnest Boyd AustinRPR REFLEX TO T. PALLIDUM - [id number] 00:00:00* Test Item Value Reference Range Interpretation Comme nts RPR (test code = 33560) NON-REACTIVE RPR TITER (test code = 3500) NOT INDIC. TITER Earnest FoyHIV 1/2 4TH GEN, RFLX [id number] 00:00:00* Test Item Value Reference Range Interpretation Comme nts HIV 1/2 4TH GEN, RFLX CONF ( test code = 3514) NON-REACTIVE Earnest Boyd AustinHEPATITIS PROFILE (A,B,C)2023-11-12 00:00:00* Test Item Value Reference Range Interpretation Comme nts HEPATITIS A TOTAL AB (test c ode = 2725) REACTIVE HEPATITIS B SURF AG (test co de = 2739) NON-REACTIVE HEP B CORE TOTAL AB (test co de = 2729) NON-REACTIVE HEPATITIS B SURFACE AB (test code = 2737) NON-REACTIVE HEPATITIS C ANTIBODY (test c ode = 4675) NON-REACTIVE INTERPRETATION HEPATITIS A: (test code = 2552) (NOTE) INTERPRETATION HEPATITIS B: (test code = 63187) (NOTE) INTERPRETATION HEPATITIS C: (test code = 27894) (NOTE) Earnest Boyd AustinVAGINAL PATHOGENS DNA [id number] 00:00:00* Test Item Value Reference Range Interpretation Comme nts RAFAELA SPECIES (test code = 35885) NEGATIVE G. VAGINALIS (test code = 41227) POSITIVE T. VAGINALIS (test code = 96891) NEGATIVE Earnest Boyd AustinHEPATITIS A IgM [REFLEX]2023-11-12 00:00:00* Test Item Value Reference Range Interpretation Comme nts HEPATITIS A IgM (test code = 2728) NON-REACTIVE Earnest Boyd AustinCT/NG, TMA, [id number] 00:00:00* Test Item Value Reference Range Interpretation Comme nts CHLAMYDIA, NAAT, URINE (test code = 90521) NEGATIVE GONORRHEA, NAAT, URINE (test code = 85687) NEGATIVE Earnest Boyd AustinRPR REFLEX TO T. PALLIDUM - [id number] 00:00:00* Test Item Value Reference Range Interpretation Comme nts RPR (test code = 24053) NON-REACTIVE RPR TITER (test code = 3500) NOT INDIC. TITER Earnest Boyd AustinHIV 1/2 4TH GEN, RFLX [id number] 00:00:00* Test Item Value Reference Range Interpretation Comme nts HIV 1/2 4TH GEN, RFLX CONF ( test code = 3514) NON-REACTIVE Earnest Boyd AustinHEPATITIS PROFILE (A,B,C)2023-11-12 00:00:00* Test Item Value Reference Range Interpretation Comme nts HEPATITIS A TOTAL AB (test c ode = 2725) REACTIVE HEPATITIS B SURF AG (test co de = 2739) NON-REACTIVE HEP B CORE TOTAL AB (test co de = 2729) NON-REACTIVE HEPATITIS B SURFACE AB (test code = 2737) NON-REACTIVE HEPATITIS C ANTIBODY (test c ode = 9275) NON-REACTIVE INTERPRETATION HEPATITIS A: (test code = 2552) (NOTE) INTERPRETATION HEPATITIS B: (test code = 50603) (NOTE) INTERPRETATION HEPATITIS C: (test code = 19019) (NOTE) Earnest FoyVAGINAL PATHOGENS DNA [id number] 00:00:00* Test Item Value Reference Range Interpretation Comme nts RAFAELA SPECIES (test code = 01873) NEGATIVE G. VAGINALIS (test code = 64511) POSITIVE T. VAGINALIS (test code = 98364) NEGATIVE Earnest FoyHEPATITIS A IgM [REFLEX]2023-11-12 00:00:00* Test Item Value Reference Range Interpretation Comme nts HEPATITIS A IgM (test code = 2728) NON-REACTIVE Earnest Boyd AustinCT/NG, TMA, [id number] 00:00:00* Test Item Value Reference Range Interpretation Comme nts CHLAMYDIA, NAAT, URINE (test code = 12950) NEGATIVE GONORRHEA, NAAT, URINE (test code = 05583) NEGATIVE Earnest Boyd AustinRPR REFLEX TO T. PALLIDUM - [id number] 00:00:00* Test Item Value Reference Range Interpretation Comme nts RPR (test code = 19321) NON-REACTIVE RPR TITER (test code = 3500) NOT INDIC. TITER Earnest Boyd AustinHIV 1/2 4TH GEN, RFLX [id number] 00:00:00* Test Item Value Reference Range Interpretation Comme nts HIV 1/2 4TH GEN, RFLX CONF ( test code = 3514) NON-REACTIVE Earnest FoyHEPATITIS PROFILE (A,B,C)2023-11-12 00:00:00* Test Item Value Reference Range Interpretation Comme nts HEPATITIS A TOTAL AB (test c ode = 2725) REACTIVE HEPATITIS B SURF AG (test co de = 2739) NON-REACTIVE HEP B CORE TOTAL AB (test co de = 2729) NON-REACTIVE HEPATITIS B SURFACE AB (test code = 2737) NON-REACTIVE HEPATITIS C ANTIBODY (test c ode = 4675) NON-REACTIVE INTERPRETATION HEPATITIS A: (test code = 2552) (NOTE) INTERPRETATION HEPATITIS B: (test code = 77119) (NOTE) INTERPRETATION HEPATITIS C: (test code = 65693) (NOTE) Earnest FoyVAGINAL PATHOGENS DNA [id number] 00:00:00* Test Item Value Reference Range Interpretation Comme nts RAFAELA SPECIES (test code = 16945) NEGATIVE G. VAGINALIS (test code = 47401) POSITIVE T. VAGINALIS (test code = 55734) NEGATIVE Earnest Boyd AustinHEPATITIS A IgM [REFLEX]2023-11-12 00:00:00* Test Item Value Reference Range Interpretation Comme nts HEPATITIS A IgM (test code = 2728) NON-REACTIVE Earnest Boyd AustinCT/NG, TMA, [id number] 00:00:00* Test Item Value Reference Range Interpretation Comme nts CHLAMYDIA, NAAT, URINE (test code = 41929) NEGATIVE GONORRHEA, NAAT, URINE (test code = 16939) NEGATIVE Earnest Boyd AustinCT/NG, NAAT, [id number] 18:41:34* Test Item Value Reference Range Interpretation Comme nts CHLAMYDIA, NAAT, URINE (test code = 30597) POSITIVE NEGATIVE A Testing is perfo rmed with Aubrey BRUNO 6800/8800 systems usingreal-time polymerase chain reaction (PCR) method. GONORRHEA, NAAT, URINE (test code = 86626) NEGATIVE NEGATIVE Testing is perfo rmed with Aubrey BRUNO 6800/8800 systems usingreal-time polymerase chain reaction (PCR) method. A negative result does not exclude low level infection, specimensampling error, or collection error. UNLESS OTHERWISE INDICATED, ALL TESTING PERFORMED AT [facility] [address] [place] [address] PUPPY WALKER: JOLEEN MORENO M.D. CLIA NUMBER [id number] [place]. [id number] CT/NG, TMA, [id number] 00:00:00* Test Item Value Reference Range Interpretation Comme nts CHLAMYDIA, NAAT, URINE (test code = 53006) POSITIVE GONORRHEA, NAAT, URINE (test code = 00011) NEGATIVE Earnest Boyd AustinCT/NG, TMA, [id number] 00:00:00* Test Item Value Reference Range Interpretation Comme nts CHLAMYDIA, NAAT, URINE (test code = 40887) POSITIVE GONORRHEA, NAAT, URINE (test code = 08862) NEGATIVE Earnest Boyd AustinCT/NG, TMA, [id number] 00:00:00* Test Item Value Reference Range Interpretation Comme nts CHLAMYDIA, NAAT, URINE (test code = 72528) POSITIVE GONORRHEA, NAAT, URINE (test code = 82793) NEGATIVE Earnest Boyd AustinCT/NG, TMA, [id number] 00:00:00* Test Item Value Reference Range Interpretation Comme nts CHLAMYDIA, NAAT, URINE (test code = 89826) POSITIVE GONORRHEA, NAAT, URINE (test code = 44406) NEGATIVE Earnest Body AustinCT/NG, TMA, [id number] 00:00:00* Test Item Value Reference Range Interpretation Comme nts CHLAMYDIA, NAAT, URINE (test code = 93193) POSITIVE GONORRHEA, NAAT, URINE (test code = 97326) NEGATIVE Earnest Boyd AustinCT/NG, TMA, [id number] 00:00:00* Test Item Value Reference Range Interpretation Comme nts CHLAMYDIA, NAAT, URINE (test code = 75603) POSITIVE GONORRHEA, NAAT, URINE (test code = 09097) NEGATIVE Earnest Boyd AustinCT/NG, TMA, [id number] 00:00:00* Test Item Value Reference Range Interpretation Comme nts CHLAMYDIA, NAAT, URINE (test code = 34319) POSITIVE GONORRHEA, NAAT, URINE (test code = 31854) NEGATIVE Earnest Boyd AustinCT/NG, TMA, [id number] 00:00:00* Test Item Value Reference Range Interpretation Comme nts CHLAMYDIA, NAAT, URINE (test code = 47527) POSITIVE GONORRHEA, NAAT, URINE (test code = 38690) NEGATIVE Earnest Boyd AustinCT/NG, TMA, [id number] 00:00:00* Test Item Value Reference Range Interpretation Comme nts CHLAMYDIA, NAAT, URINE (test code = 11448) POSITIVE GONORRHEA, NAAT, URINE (test code = 68266) NEGATIVE Earnest F AustinCT/NG, TMA, [id number] 00:00:00* Test Item Value Reference Range Interpretation Comme nts CHLAMYDIA, NAAT, URINE (test code = 64324) POSITIVE GONORRHEA, NAAT, URINE (test code = 13353) NEGATIVE Earnest Boyd AustinVAGINAL PATHOGENS DNA [id number] 12:26:58* Test Item Value Reference Range Interpretation Comme nts RAFAELA SPECIES (test code = 76958) NEGATIVE NEGATIVE G. VAGINALIS (test code = 19511) POSITIVE NEGATIVE A T. VAGINALIS (test code = 96418) NEGATIVE NEGATIVE Note: The [employer] VPIII Microbial Identification Testis a DNA probe test intended for use in the detectionand identification of Rafaela species, Gardnerellavaginalis and Trichomonas vaginalis nucleic acid. VAGINAL PATHOGENS DNA [id number] 00:00:00* Test Item Value Reference Range Interpretation Comme nts RAFAELA SPECIES (test code = 06543) NEGATIVE G. VAGINALIS (test code = 68404) POSITIVE T. VAGINALIS (test code = 20422) NEGATIVE Earnest Boyd AustinVAGINAL PATHOGENS DNA [id number] 00:00:00* Test Item Value Reference Range Interpretation Comme nts RAFAELA SPECIES (test code = 28854) NEGATIVE G. VAGINALIS (test code = 95021) POSITIVE T. VAGINALIS (test code = 55072) NEGATIVE Earnest Boyd AustinVAGINAL PATHOGENS DNA [id number] 00:00:00* Test Item Value Reference Range Interpretation Comme nts RAFAELA SPECIES (test code = 33031) NEGATIVE G. VAGINALIS (test code = 41779) POSITIVE T. VAGINALIS (test code = 95000) NEGATIVE Earnest Boyd AustinVAGINAL PATHOGENS DNA [id number] 00:00:00* Test Item Value Reference Range Interpretation Comme nts RAFAELA SPECIES (test code = 64616) NEGATIVE G. VAGINALIS (test code = 24828) POSITIVE T. VAGINALIS (test code = 10845) NEGATIVE Earnest Boyd AustinVAGINAL PATHOGENS DNA [id number] 00:00:00* Test Item Value Reference Range Interpretation Comme nts RAFAELA SPECIES (test code = 32762) NEGATIVE G. VAGINALIS (test code = 14880) POSITIVE T. VAGINALIS (test code = 27680) NEGATIVE Earnest Boyd AustinVAGINAL PATHOGENS DNA [id number] 00:00:00* Test Item Value Reference Range Interpretation Comme nts RAFAELA SPECIES (test code = ) NEGATIVE G. VAGINALIS (test code = 86369) POSITIVE T. VAGINALIS (test code = 97916) NEGATIVE Earnest Boyd AustinVAGINAL PATHOGENS DNA [id number] 00:00:00* Test Item Value Reference Range Interpretation Comme nts RAFAELA SPECIES (test code = 89366) NEGATIVE G. VAGINALIS (test code = 32799) POSITIVE T. VAGINALIS (test code = 84690) NEGATIVE Earnest Boyd AustinVAGINAL PATHOGENS DNA [id number] 00:00:00* Test Item Value Reference Range Interpretation Comme nts RAFAELA SPECIES (test code = 03141) NEGATIVE G. VAGINALIS (test code = 14007) POSITIVE T. VAGINALIS (test code = 37118) NEGATIVE Earnest Boyd AustinVAGINAL PATHOGENS DNA [id number] 00:00:00* Test Item Value Reference Range Interpretation Comme nts RAFAELA SPECIES (test code = ) NEGATIVE G. VAGINALIS (test code = 60002) POSITIVE T. VAGINALIS (test code = 98391) NEGATIVE Earnest Boyd AustinVAGINAL PATHOGENS DNA [id number] 00:00:00* Test Item Value Reference Range Interpretation Comme nts RAFAELA SPECIES (test code = ) NEGATIVE G. VAGINALIS (test code = 33515) POSITIVE T. VAGINALIS (test code = 76310) NEGATIVE Earnest Boyd [facility] T4 (THYROXINE)2023-08-20 09:33:00* Test Item Value Reference Range Interpretation Comme nts FREE T4 (THYROXINE) (test co de = 2823) 1.20 NG/DL 0.80-1.90 THYROID II PROFILE (TU,T4,FTI,TSH)2023-08-20 09:33:00* Test Item Value Reference Range Interpretation Comme nts T-UPTAKE (test code = 2817) 33.1 % 24.3-39.0 THYROX. BIND. CAPAC. (test code = 19236) 1.0 0.8-1.3 T4 (THYROXINE) (test code = 2819) 7.2 UG/DL 4.5-10.5 CORRECTED T4 (FTI) (test code = 2820) 7.2 UG/DL 4.2-11.6 TSH, THIRD GENERATION (test code = 2821) 3.500 UIU/ML 0.400-4.100 UNLESS OTHERWISE INDICATED, ALL TESTING PERFORMED AT [facility] [address] [place] [address] PUPPY WALKER: JOLEEN MORENO M.D. CLIA NUMBER [id number] [facility] [place]. [id number] FREE T4 (THYROXINE)2023-08-20 00:00:00* Test Item Value Reference Range Interpretation Comme nts FREE T4 (THYROXINE) (test co de = 2823) 1.20 NG/DL Earnest AustinTHYROID II PROFILE (TU, T4, T7, TSH)2023-08-20 00:00:00* Test Item Value Reference Range Interpretation Comme nts T-UPTAKE (test code = 2817) 33.1 % THYROX. BIND. CAPAC. (test c ode = 48996) 1.0 T4 (THYROXINE) (test code = 2819) 7.2 UG/DL CORRECTED T4 (FTI) (test cod e = 2820) 7.2 UG/DL TSH, THIRD GENERATION (test code = 2821) 3.500 UIU/ML Earnest AustinFREE T4 (THYROXINE)2023-08-20 00:00:00* Test Item Value Reference Range Interpretation Comme nts FREE T4 (THYROXINE) (test co de = 2823) 1.20 NG/DL Earnest F AustinTHYROID II PROFILE (TU, T4, T7, TSH)2023-08-20 00:00:00* Test Item Value Reference Range Interpretation Comme nts T-UPTAKE (test code = 2817) 33.1 % THYROX. BIND. CAPAC. (test c ode = 35579) 1.0 T4 (THYROXINE) (test code = 2819) 7.2 UG/DL CORRECTED T4 (FTI) (test cod e = 2820) 7.2 UG/DL TSH, THIRD GENERATION (test code = 2821) 3.500 UIU/ML Earnest F AustinFREE T4 (THYROXINE)2023-08-20 00:00:00* Test Item Value Reference Range Interpretation Comme nts FREE T4 (THYROXINE) (test co de = 2823) 1.20 NG/DL [facility] AustinTHYROID II PROFILE (TU, T4, T7, TSH)2023-08-20 00:00:00* Test Item Value Reference Range Interpretation Comme nts T-UPTAKE (test code = 2817) 33.1 % THYROX. BIND. CAPAC. (test c ode = 59683) 1.0 T4 (THYROXINE) (test code = 2819) 7.2 UG/DL CORRECTED T4 (FTI) (test cod e = 2820) 7.2 UG/DL TSH, THIRD GENERATION (test code = 2821) 3.500 UIU/ML Earnest Boyd AustinFREE T4 (THYROXINE)2023-08-20 00:00:00* Test Item Value Reference Range Interpretation Comme nts FREE T4 (THYROXINE) (test co de = 2823) 1.20 NG/DL Earnest Boyd AustinTHYROID II PROFILE (TU, T4, T7, TSH)2023-08-20 00:00:00* Test Item Value Reference Range Interpretation Comme nts T-UPTAKE (test code = 2817) 33.1 % THYROX. BIND. CAPAC. (test c ode = 13685) 1.0 T4 (THYROXINE) (test code = 2819) 7.2 UG/DL CORRECTED T4 (FTI) (test cod e = 2820) 7.2 UG/DL TSH, THIRD GENERATION (test code = 2821) 3.500 UIU/ML Earnest Boyd AustinFREE T4 (THYROXINE)2023-08-20 00:00:00* Test Item Value Reference Range Interpretation Comme nts FREE T4 (THYROXINE) (test co de = 2823) 1.20 NG/DL Earnest Boyd AustinTHYROID II PROFILE (TU, T4, T7, TSH)2023-08-20 00:00:00* Test Item Value Reference Range Interpretation Comme nts T-UPTAKE (test code = 2817) 33.1 % THYROX. BIND. CAPAC. (test c ode = 92997) 1.0 T4 (THYROXINE) (test code = 2819) 7.2 UG/DL CORRECTED T4 (FTI) (test cod e = 2820) 7.2 UG/DL TSH, THIRD GENERATION (test code = 2821) 3.500 UIU/ML Earnest Boyd AustinFREE T4 (THYROXINE)2023-08-20 00:00:00* Test Item Value Reference Range Interpretation Comme nts FREE T4 (THYROXINE) (test co de = 2823) 1.20 NG/DL Earnest Boyd AustinTHYROID II PROFILE (TU, T4, T7, TSH)2023-08-20 00:00:00* Test Item Value Reference Range Interpretation Comme nts T-UPTAKE (test code = 2817) 33.1 % THYROX. BIND. CAPAC. (test c ode = 18704) 1.0 T4 (THYROXINE) (test code = 2819) 7.2 UG/DL CORRECTED T4 (FTI) (test cod e = 2820) 7.2 UG/DL TSH, THIRD GENERATION (test code = 2821) 3.500 UIU/ML Earnest Boyd AustinFREE T4 (THYROXINE)2023-08-20 00:00:00* Test Item Value Reference Range Interpretation Comme nts FREE T4 (THYROXINE) (test co de = 2823) 1.20 NG/DL Earnest Boyd AustinTHYROID II PROFILE (TU, T4, T7, TSH)2023-08-20 00:00:00* Test Item Value Reference Range Interpretation Comme nts T-UPTAKE (test code = 2817) 33.1 % THYROX. BIND. CAPAC. (test c ode = 84523) 1.0 T4 (THYROXINE) (test code = 2819) 7.2 UG/DL CORRECTED T4 (FTI) (test cod e = 2820) 7.2 UG/DL TSH, THIRD GENERATION (test code = 2821) 3.500 UIU/ML Earnest Boyd AustinFREE T4 (THYROXINE)2023-08-20 00:00:00* Test Item Value Reference Range Interpretation Comme nts FREE T4 (THYROXINE) (test co de = 2823) 1.20 NG/DL Earnest Boyd AustinTHYROID II PROFILE (TU, T4, T7, TSH)2023-08-20 00:00:00* Test Item Value Reference Range Interpretation Comme nts T-UPTAKE (test code = 2817) 33.1 % THYROX. BIND. CAPAC. (test c ode = 27946) 1.0 T4 (THYROXINE) (test code = 2819) 7.2 UG/DL CORRECTED T4 (FTI) (test cod e = 2820) 7.2 UG/DL TSH, THIRD GENERATION (test code = 2821) 3.500 UIU/ML Earnest Boyd AustinFREE T4 (THYROXINE)2023-08-20 00:00:00* Test Item Value Reference Range Interpretation Comme nts FREE T4 (THYROXINE) (test co de = 2823) 1.20 NG/DL Earnest Boyd AustinTHYROID II PROFILE (TU, T4, T7, TSH)2023-08-20 00:00:00* Test Item Value Reference Range Interpretation Comme nts T-UPTAKE (test code = 2817) 33.1 % THYROX. BIND. CAPAC. (test c ode = 23485) 1.0 T4 (THYROXINE) (test code = 2819) 7.2 UG/DL CORRECTED T4 (FTI) (test cod e = 2820) 7.2 UG/DL TSH, THIRD GENERATION (test code = 2821) 3.500 UIU/ML Earnest FoyFREE T4 (THYROXINE)2023-08-20 00:00:00* Test Item Value Reference Range Interpretation Comme nts FREE T4 (THYROXINE) (test co de = 2823) 1.20 NG/DL Earnest FoyTHYROID II PROFILE (TU, T4, T7, TSH)2023-08-20 00:00:00* Test Item Value Reference Range Interpretation Comme nts T-UPTAKE (test code = 2817) 33.1 % THYROX. BIND. CAPAC. (test c ode = 77457) 1.0 T4 (THYROXINE) (test code = 2819) 7.2 UG/DL CORRECTED T4 (FTI) (test cod e = 2820) 7.2 UG/DL TSH, THIRD GENERATION (test code = 2821) 3.500 UIU/ML Earnest Reis, [id number] 11:49:18SPECIMEN NUMBER: [id number] CULTURE, URINE SPECIMEN NUMBER: [id number] SPECIMEN COMMENT: URINE SOURCE: URINE REPORT STATUS: FINAL FINAL REPORT: 08/10/2023 50-100,000 CFU/ML UROGENITAL FREYA PRESENT NO COMMON PATHOGENSCULTURE, [id number] 00:00:00* Test Item Value Reference Range Interpretation Comme nts CULTURE, URINE (test code = 44061) SPECIMEN NUMBER: [id number] Earnest Da SilvaLTNIURKA, [id number] 00:00:00* Test Item Value Reference Range Interpretation Comme nts CULTURE, URINE (test code = 37071) SPECIMEN NUMBER: [id number] Earnest Reis [id number] 00:00:00* Test Item Value Reference Range Interpretation Comme nts CULTURE, URINE (test code = 67081) SPECIMEN NUMBER: [id number] Earnest Reis [id number] 00:00:00* Test Item Value Reference Range Interpretation Comme nts CULTURE, URINE (test code = 28789) SPECIMEN NUMBER: [id number] Earnest Reis [id number] 00:00:00* Test Item Value Reference Range Interpretation Comme nts CULTURE, URINE (test code = 83329) SPECIMEN NUMBER: [id number] Earnest Reis [id number] 00:00:00* Test Item Value Reference Range Interpretation Comme nts CULTURE, URINE (test code = 62227) SPECIMEN NUMBER: [id number] Earnest Reis [id number] 00:00:00* Test Item Value Reference Range Interpretation Comme nts CULTURE, URINE (test code = 62200) SPECIMEN NUMBER: [id number] Earnest Reis [id number] 00:00:00* Test Item Value Reference Range Interpretation Comme nts CULTURE, URINE (test code = 37653) SPECIMEN NUMBER: [id number] Earnest Reis [id number] 00:00:00* Test Item Value Reference Range Interpretation Comme nts CULTURE, URINE (test code = 53208) SPECIMEN NUMBER: [id number] Earnest Reis [id number] 00:00:00* Test Item Value Reference Range Interpretation Comme nts CULTURE, URINE (test code = 86075) SPECIMEN NUMBER: [id number] Earnest FoyVAGINAL PATHOGENS DNA [id number] 13:49:11* Test Item Value Reference Range Interpretation Comme nts ARFAELA SPECIES (test code = 48909) NEGATIVE NEGATIVE G. VAGINALIS (test code = 98968) POSITIVE NEGATIVE A T. VAGINALIS (test code = 74602) NEGATIVE NEGATIVE Note: The [facility] VPIII Microbial Identification Testis a DNA probe test intended for use in the detectionand identification of Rafaela species, Gardnerellavaginalis and Trichomonas vaginalis nucleic acid. UNLESS OTHERWISE INDICATED, ALL TESTING PERFORMED AT [facility] [address] [place] [address] PUPPY WALKER: JOLEEN MORENO M.D. [place] NUMBER [id number] [facility] [place]. [id number] VAGINAL PATHOGENS DNA [id number] 00:00:00* Test Item Value Reference Range Interpretation Comme nts RAFAELA SPECIES (test code = 86987) NEGATIVE G. VAGINALIS (test code = 77763) POSITIVE T. VAGINALIS (test code = 12305) NEGATIVE Earnest Boyd AustinVAGINAL PATHOGENS DNA [id number] 00:00:00* Test Item Value Reference Range Interpretation Comme nts RAFAELA SPECIES (test code = 22117) NEGATIVE G. VAGINALIS (test code = 72999) POSITIVE T. VAGINALIS (test code = 19141) NEGATIVE Earnest F AustinVAGINAL PATHOGENS DNA [id number] 00:00:00* Test Item Value Reference Range Interpretation Comme nts RAFAELA SPECIES (test code = 85943) NEGATIVE G. VAGINALIS (test code = 53142) POSITIVE T. VAGINALIS (test code = 16339) NEGATIVE [facility] AustinVAGINAL PATHOGENS DNA [id number] 00:00:00* Test Item Value Reference Range Interpretation Comme nts RAFAELA SPECIES (test code = 75908) NEGATIVE G. VAGINALIS (test code = 00873) POSITIVE T. VAGINALIS (test code = 02974) NEGATIVE Earnest Oliver AustinVAGINAL PATHOGENS DNA [id number] 00:00:00* Test Item Value Reference Range Interpretation Comme nts RAFAELA SPECIES (test code = 43638) NEGATIVE G. VAGINALIS (test code = 03257) POSITIVE T. VAGINALIS (test code = 26755) NEGATIVE Earnest F AustinVAGINAL PATHOGENS DNA [id number] 00:00:00* Test Item Value Reference Range Interpretation Comme nts RAFAELA SPECIES (test code = 88930) NEGATIVE G. VAGINALIS (test code = 59879) POSITIVE T. VAGINALIS (test code = 92158) NEGATIVE Earnest F AustinVAGINAL PATHOGENS DNA [id number] 00:00:00* Test Item Value Reference Range Interpretation Comme nts RAFAELA SPECIES (test code = 60777) NEGATIVE G. VAGINALIS (test code = 90491) POSITIVE T. VAGINALIS (test code = 04819) NEGATIVE Earnest Oliver AustinVAGINAL PATHOGENS DNA [id number] 00:00:00* Test Item Value Reference Range Interpretation Comme nts RAFAELA SPECIES (test code = ) NEGATIVE G. VAGINALIS (test code = 91553) POSITIVE T. VAGINALIS (test code = ) NEGATIVE Earnest Boyd AustinVAGINAL PATHOGENS DNA [id number] 00:00:00* Test Item Value Reference Range Interpretation Comme nts RAFAELA SPECIES (test code = ) NEGATIVE G. VAGINALIS (test code = 44957) POSITIVE T. VAGINALIS (test code = 26577) NEGATIVE Earnest Boyd Austin[facility] PATH[facility]ENS DNA [id number] 00:00:00* Test Item Value Reference Range Interpretation Comme nts RAFAELA SPECIES (test code = ) NEGATIVE G. VAGINALIS (test code = 89593) POSITIVE T. VAGINALIS (test code = 37735) NEGATIVE Earnest Boyd AustinNOTE:2023-08-07 06:05:15* Test Item Value Reference Range Interpretation Comme nts NOTE: (test code = 998) (NOTE) IN ACCORDANCE WI [employer]AL GUIDELINES REQUIRING ALL VERBAL REQUESTS FOR LABORATORY TESTS TO BE ACCOMPANIED BY WRITTEN AUTHORIZATION WITHIN 30 DAYS OF THIS REQUEST, PLEASE SIGN BELOW AND RETURN A COPY OF THIS REPORT BY FAX TO THE LABORATORY SCANNING DEPARTMENT AT [phone]. PHYSICIAN'S SIGNATURE DATE UNLESS OTHERWISE INDICATED, ALL TESTING PERFORMED AT [facility] [address] [place] [address] PUPPY WALKER: JOLEEN MORENO M.D. CLIA NUMBER [id number] [facility] [place] [id number] FREE T4 (THYROXINE)2023-08-07 04:23:56* Test Item Value Reference Range Interpretation Comme nts FREE T4 (THYROXINE) (test co de = 2823) 1.21 NG/DL 0.80-1.90 FREE T4 (THYROXINE) [ADDED]2023-08-07 00:00:00* Test Item Value Reference Range Interpretation Comme nts FREE T4 (THYROXINE) (test co de = 2823) 1.21 NG/DL Earnest Boyd AustinNOTE: [ADDED]2023-08-07 00:00:00* Test Item Value Reference Range Interpretation Comme nts NOTE: (test code = 998) (NOTE) Earnest FoyFREE T4 (THYROXINE) [ADDED]2023-08-07 00:00:00* Test Item Value Reference Range Interpretation Comme nts FREE T4 (THYROXINE) (test co de = 2823) 1.21 NG/DL Earnest Boyd AustinNOTE: [ADDED]2023-08-07 00:00:00* Test Item Value Reference Range Interpretation Comme nts NOTE: (test code = 998) (NOTE) Earnest Boyd AustinFREE T4 (THYROXINE) [ADDED]2023-08-07 00:00:00* Test Item Value Reference Range Interpretation Comme nts FREE T4 (THYROXINE) (test co de = 2823) 1.21 NG/DL Earnest Boyd AustinNOTE: [ADDED]2023-08-07 00:00:00* Test Item Value Reference Range Interpretation Comme nts NOTE: (test code = 998) (NOTE) Earnest FoyFREE T4 (THYROXINE) [ADDED]2023-08-07 00:00:00* Test Item Value Reference Range Interpretation Comme nts FREE T4 (THYROXINE) (test co de = 2823) 1.21 NG/DL Earnest Boyd AustinNOTE: [ADDED]2023-08-07 00:00:00* Test Item Value Reference Range Interpretation Comme nts NOTE: (test code = 998) (NOTE) Earnest FoyFREE T4 (THYROXINE) [ADDED]2023-08-07 00:00:00* Test Item Value Reference Range Interpretation Comme nts FREE T4 (THYROXINE) (test co de = 2823) 1.21 NG/DL Earnest Boyd AustinNOTE: [ADDED]2023-08-07 00:00:00* Test Item Value Reference Range Interpretation Comme nts NOTE: (test code = 998) (NOTE) Earnest FoyFREE T4 (THYROXINE) [ADDED]2023-08-07 00:00:00* Test Item Value Reference Range Interpretation Comme nts FREE T4 (THYROXINE) (test co de = 2823) 1.21 NG/DL Earnest Boyd AustinNOTE: [ADDED]2023-08-07 00:00:00* Test Item Value Reference Range Interpretation Comme nts NOTE: (test code = 998) (NOTE) Earnest FoyFRJIMENEZ T4 (THYROXINE) [ADDED]2023-08-07 00:00:00* Test Item Value Reference Range Interpretation Comme nts FREE T4 (THYROXINE) (test co de = 2823) 1.21 NG/DL Earnest Boyd AustinNOTE: [ADDED]2023-08-07 00:00:00* Test Item Value Reference Range Interpretation Comme nts NOTE: (test code = 998) (NOTE) Earnest FoyFREE T4 (THYROXINE) [ADDED]2023-08-07 00:00:00* Test Item Value Reference Range Interpretation Comme nts FREE T4 (THYROXINE) (test co de = 2823) 1.21 NG/DL Earnest Boyd AustinNOTE: [ADDED]2023-08-07 00:00:00* Test Item Value Reference Range Interpretation Comme nts NOTE: (test code = 998) (NOTE) Earnest Perry T4 (THYROXINE) [ADDED]2023-08-07 00:00:00* Test Item Value Reference Range Interpretation Comme nts FREE T4 (THYROXINE) (test co de = 2823) 1.21 NG/DL Earnest Boyd AustinNOTE: [ADDED]2023-08-07 00:00:00* Test Item Value Reference Range Interpretation Comme nts NOTE: (test code = 998) (NOTE) Earnest Perry T4 (THYROXINE) [ADDED]2023-08-07 00:00:00* Test Item Value Reference Range Interpretation Comme nts FREE T4 (THYROXINE) (test co de = 2823) 1.21 NG/DL Earnest Boyd AustinNOTE: [ADDED]2023-08-07 00:00:00* Test Item Value Reference Range Interpretation Comme nts NOTE: (test code = 998) (NOTE) Earnest FoyTSH, THIRD [id number] 06:21:49* Test Item Value Reference Range Interpretation Comme nts TSH, THIRD GENERATION (test code = 2821) 4.170 UIU/ML 0.400-4.100 H VITAMIN D, 25 [id number] 06:21:28* Test Item Value Reference Range Interpretation Comme nts VITAMIN D, 25 OH (test code = 4958) 9 NG/ML SEE BELOW L EFFECTIVE 2022, PLEASE NOTE NEW METHODOLOGY IS ELECTROCHEMILUMINESCENCE BINDING ASSAY. NOTE: 25-HYDROXYVITAMIN D ASSAY INCLUDES 25-HYDROXYVITAMIN D2 AND D3. INTERPRETIVE RANGES PEDIATRIC (<17 YEARS) . . . . . . . . . . . NG/ML 20-100ADULT: INSUFFICIENT . . . . . . . . . . . . . . NG/ML <20 SUBOPTIMAL . . . . . . . . . . . . . . . NG/ML 20-29 OPTIMAL . . . . . . . . . . . . . . . . . NG/ML 30-100 UNLESS OTHERWISE INDICATED, ALL TESTING PERFORMED AT [facility] [address] [place] [id number] PUPPY WALKER: JOLEEN MORENO M.D. [place] NUMBER [id number] [facility] [place]. [id number] COMPREHENSIVE METABOLIC [id number] 06:19:45* Test Item Value Reference Range Interpretation Comme nts GLUCOSE (test code = 2216) 78 MG/DL 70-99 BUN (test code = 2207) 13 MG/DL 6-20 CREATININE (test code = 2214) 0.69 MG/DL 0.60-1.30 eGFR (2020 CKD-EPI) (test code = 43865) 127 ML/MIN/1.73 >60 CALC BUN/CREAT (test code = 2235) 19 RATIO 6-28 SODIUM (test code = 2231) 139 MEQ/L 133-146 POTASSIUM (test code = 2228) 3.9 MEQ/L 3.5-5.4 CHLORIDE (test code = 2215) 103 MEQ/L 95-107 CARBON DIOXIDE (test code = 2206) 22 MEQ/L 19-31 CALCIUM (test code = 2209) 9.7 MG/DL 8.5-10.5 PROTEIN, TOTAL (test code = 222) 7.9 G/DL 6.1-8.3 ALBUMIN (test code = 2201) 4.6 G/DL 3.5-5.2 CALC GLOBULIN (test code = 2240) 3.3 G/DL 1.9-3.7 CALC A/G RATIO (test code = 2234) 1.4 RATIO 1.0-2.6 BILIRUBIN, TOTAL (test code = 2206) 0.4 MG/DL <=1.2 ALKALINE PHOSPHATASE (test code = 2204) 66 U/L 40-116 AST (test code = 2218) 35 U/L 9-40 ALT (test code = 2219) 31 U/L 5-40 LIPID [id number] 06:19:45* Test Item Value Reference Range Interpretation Comme nts CHOLESTEROL (test code = 2210) 128 MG/DL <200 TRIGLYCERIDES (test code = 2232) 112 MG/DL <150 HDL CHOLESTEROL (test code = 2220) 36 MG/DL >39 L CALC LDL CHOL (test code = 2237) 72 MG/DL <100 NOTE: CALCULATED LDL IS BASED ON JAVY-JACOBS METHOD WHICHINCLUDES ADJUSTABLE TRIGLYCERIDE:VLDL CHOLESTEROL RATIO.THIS FACTOR VARIES BY MEASURED TRIGLYCERIDE AND NON-HDLCHOLESTEROL CONCENTRATIONS WITH INCREASED CALCULATED LDL SEENIN HIGHER TRIGLYCERIDE OR LOWER NON-HDL SPECIMENS. FOR MOREINFORMATION, SEE CLIENT ANNOUNCEMENT AT [email or web address] RISK RATIO LDL/HDL (test code = 2238) 2.00 RATIO <3.22 HEMOGLOBIN [id number] 04:04:53* Test Item Value Reference Range Interpretation Comme nts HEMOGLOBIN A1c (test code = 06925) 5.3 % 4.2-5.6 CBC W/AUTO DIFF WITH [id number] 02:39:07* Test Item Value Reference Range Interpretation Comme nts WBC (test code = 1001) 8.1 K/UL 3.5-11.0 RBC (test code = 1002) 4.43 M/UL 3.80-5.40 HEMOGLOBIN (test code = 1003) 13.2 G/DL 11.5-15.5 HEMATOCRIT (test code = 1004) 40.1 % 34.0-45.0 MCV (test code = 1005) 90.5 fL 80.0-99.0 MCH (test code = 1006) 29.8 PG 25.0-33.0 MCHC (test code = 1007) 32.9 G/DL 31.0-36.0 RDW (test code = 1038) 12.3 % 11.5-15.0 NEUTROPHILS (test code = 1008) 64.6 % LYMPHOCYTES (test code = 1010) 17.9 % MONOCYTES (test code = 1011) 13.6 % EOSINOPHILS (test code = 1012) 3.0 % BASOPHILS (test code = 1013) 0.5 % IMMATURE GRANULOCYTES (test code = 1036) 0.4 % NUCLEATED RBCS (test code = 1065) 0.0 /100 WBC'S See_Comment [Automated VendorShopa ge] The system which generated this result transmitted reference range: 0.0. The reference range was not used to interpret this result as normal/abnormal. PLATELET COUNT (test code = 1015) 185 K/UL 130-400 ABSOLUTE NEUTROPHILS (test code = 1066) 5.23 K/UL 1.50-7.50 ABSOLUTE LYMPHOCYTES (test code = 1067) 1.45 K/UL 1.00-4.00 ABSOLUTE MONOCYTES (test code = 1068) 1.10 K/UL 0.20-1.00 H ABSOLUTE EOSINOPHILS (test code = 1040) 0.24 K/UL 0.00-0.50 ABSOLUTE BASOPHILS (test code = 1069) 0.04 K/UL 0.00-0.20 ABS IMMATURE GRANULOCYTES (test code = 1020) 0.03 K/UL 0.00-0.10 ABS NUCLEATED RBCS (test code = 60352) 0.00 K/UL 0.00-0.11 COMPREHENSIVE METABOLIC [id number] 00:00:00* Test Item Value Reference Range Interpretation Comme nts GLUCOSE (test code = 2217) 78 MG/DL BUN (test code = 2208) 13 MG/DL CREATININE (test code = 2214) 0.69 MG/DL eGFR (2020 CKD-EPI) (test code = 08780) 127 ML/MIN/1.73 CALC BUN/CREAT (test code = 2235) 19 RATIO SODIUM (test code = 2231) 139 MEQ/L POTASSIUM (test code = 2228) 3.9 MEQ/L CHLORIDE (test code = 2215) 103 MEQ/L CARBON DIOXIDE (test code = 2206) 22 MEQ/L CALCIUM (test code = 2209) 9.7 MG/DL PROTEIN, TOTAL (test code = 2229) 7.9 G/DL ALBUMIN (test code = 2201) 4.6 G/DL CALC GLOBULIN (test code = 2240) 3.3 G/DL CALC A/G RATIO (test code = 2234) 1.4 RATIO BILIRUBIN, TOTAL (test code = 2207) 0.4 MG/DL ALKALINE PHOSPHATASE (test code = 2204) 66 U/L AST (test code = 2218) 35 U/L ALT (test code = 2219) 31 U/L Earnest FoyHEMOGLOBIN [id number] 00:00:00* Test Item Value Reference Range Interpretation Comme papito HEMOGLOBIN A1c (test code = 02807) 5.3 % Earnest FoyLIPID [id number] 00:00:00* Test Item Value Reference Range Interpretation Comme nts CHOLESTEROL (test code = 2210) 128 MG/DL TRIGLYCERIDES (test code = 2232) 112 MG/DL HDL CHOLESTEROL (test code = 2220) 36 MG/DL CALC LDL CHOL (test code = 2237) 72 MG/DL RISK RATIO LDL/HDL (test cod e = 2238) 2.00 RATIO Earnest FoyTSH, THIRD [id number] 00:00:00* Test Item Value Reference Range Interpretation Comme papito TSH, THIRD GENERATION (test code = 2821) 4.170 UIU/ML Earnest FoyVITAMIN D, 25 [id number] 00:00:00* Test Item Value Reference Range Interpretation Comme papito VITAMIN D, 25 OH (test code = 4958) 9 NG/ML Earnest FoyCBC W/AUTO [id number] 00:00:00* Test Item Value Reference Range Interpretation Comme papito WBC (test code = 1001) 8.1 K/UL RBC (test code = 1002) 4.43 M/UL HEMOGLOBIN (test code = 1003) 13.2 G/DL HEMATOCRIT (test code = 1004) 40.1 % MCV (test code = 1005) 90.5 fL MCH (test code = 1006) 29.8 PG MCHC (test code = 1007) 32.9 G/DL RDW (test code = 1038) 12.3 % NEUTROPHILS (test code = 1008) 64.6 % LYMPHOCYTES (test code = 1010) 17.9 % MONOCYTES (test code = 1011) 13.6 % EOSINOPHILS (test code = 1012) 3.0 % BASOPHILS (test code = 1013) 0.5 % IMMATURE GRANULOCYTES (test code = 1036) 0.4 % NUCLEATED RBCS (test code = 1065) 0.0 /100WBC'S PLATELET COUNT (test code = 1015) 185 K/UL ABSOLUTE NEUTROPHILS (test c ode = 1066) 5.23 K/UL ABSOLUTE LYMPHOCYTES (test c ode = 1067) 1.45 K/UL ABSOLUTE MONOCYTES (test cod e = 1068) 1.10 K/UL ABSOLUTE EOSINOPHILS (test c ode = 1040) 0.24 K/UL ABSOLUTE BASOPHILS (test cod e = 1069) 0.04 K/UL ABS IMMATURE GRANULOCYTES (t est code = 1020) 0.03 K/UL ABS NUCLEATED RBCS (test cod e = 93516) 0.00 K/UL Earnest FoyCOMPREHENSIVE METABOLIC [id number] 00:00:00* Test Item Value Reference Range Interpretation Comme nts GLUCOSE (test code = 2217) 78 MG/DL BUN (test code = 2208) 13 MG/DL CREATININE (test code = 2214) 0.69 MG/DL eGFR (2020 CKD-EPI) (test code = 45001) 127 ML/MIN/1.73 CALC BUN/CREAT (test code = 2235) 19 RATIO SODIUM (test code = 2231) 139 MEQ/L POTASSIUM (test code = 2228) 3.9 MEQ/L CHLORIDE (test code = 2215) 103 MEQ/L CARBON DIOXIDE (test code = 2206) 22 MEQ/L CALCIUM (test code = 2209) 9.7 MG/DL PROTEIN, TOTAL (test code = 2229) 7.9 G/DL ALBUMIN (test code = 2201) 4.6 G/DL CALC GLOBULIN (test code = 2240) 3.3 G/DL CALC A/G RATIO (test code = 2234) 1.4 RATIO BILIRUBIN, TOTAL (test code = 2207) 0.4 MG/DL ALKALINE PHOSPHATASE (test code = 2204) 66 U/L AST (test code = 2218) 35 U/L ALT (test code = 2219) 31 U/L Earnest FoyHEMOGLOBIN [id number] 00:00:00* Test Item Value Reference Range Interpretation Comme nts HEMOGLOBIN A1c (test code = 72792) 5.3 % Earnest FoyLIPID [id number] 00:00:00* Test Item Value Reference Range Interpretation Comme nts CHOLESTEROL (test code = 2210) 128 MG/DL TRIGLYCERIDES (test code = 2232) 112 MG/DL HDL CHOLESTEROL (test code = 2220) 36 MG/DL CALC LDL CHOL (test code = 2237) 72 MG/DL RISK RATIO LDL/HDL (test cod e = 2238) 2.00 RATIO Earnest Brito, THIRD [id number] 00:00:00* Test Item Value Reference Range Interpretation Comme nts TSH, THIRD GENERATION (test code = 2821) 4.170 UIU/ML Earnest FoyVITAMIN D, 25 [id number] 00:00:00* Test Item Value Reference Range Interpretation Comme nts VITAMIN D, 25 OH (test code = 4958) 9 NG/ML Earnest FoyCBC W/AUTO [id number] 00:00:00* Test Item Value Reference Range Interpretation Comme nts WBC (test code = 1001) 8.1 K/UL RBC (test code = 1002) 4.43 M/UL HEMOGLOBIN (test code = 1003) 13.2 G/DL HEMATOCRIT (test code = 1004) 40.1 % MCV (test code = 1005) 90.5 fL MCH (test code = 1006) 29.8 PG MCHC (test code = 1007) 32.9 G/DL RDW (test code = 1038) 12.3 % NEUTROPHILS (test code = 1008) 64.6 % LYMPHOCYTES (test code = 1010) 17.9 % MONOCYTES (test code = 1011) 13.6 % EOSINOPHILS (test code = 1012) 3.0 % BASOPHILS (test code = 1013) 0.5 % IMMATURE GRANULOCYTES (test code = 1036) 0.4 % NUCLEATED RBCS (test code = 1065) 0.0 /100WBC'S PLATELET COUNT (test code = 1015) 185 K/UL ABSOLUTE NEUTROPHILS (test c ode = 1066) 5.23 K/UL ABSOLUTE LYMPHOCYTES (test c ode = 1067) 1.45 K/UL ABSOLUTE MONOCYTES (test cod e = 1068) 1.10 K/UL ABSOLUTE EOSINOPHILS (test c ode = 1040) 0.24 K/UL ABSOLUTE BASOPHILS (test cod e = 1069) 0.04 K/UL ABS IMMATURE GRANULOCYTES (t est code = 1020) 0.03 K/UL ABS NUCLEATED RBCS (test cod e = 80833) 0.00 K/UL Earnest FoyCOMPREHENSIVE METABOLIC [id number] 00:00:00* Test Item Value Reference Range Interpretation Comme nts GLUCOSE (test code = 2217) 78 MG/DL BUN (test code = 2208) 13 MG/DL CREATININE (test code = 2214) 0.69 MG/DL eGFR (2020 CKD-EPI) (test code = 86087) 127 ML/MIN/1.73 CALC BUN/CREAT (test code = 2235) 19 RATIO SODIUM (test code = 2231) 139 MEQ/L POTASSIUM (test code = 2228) 3.9 MEQ/L CHLORIDE (test code = 2215) 103 MEQ/L CARBON DIOXIDE (test code = 2206) 22 MEQ/L CALCIUM (test code = 2209) 9.7 MG/DL PROTEIN, TOTAL (test code = 222) 7.9 G/DL ALBUMIN (test code = 220) 4.6 G/DL CALC GLOBULIN (test code = 2240) 3.3 G/DL CALC A/G RATIO (test code = 2234) 1.4 RATIO BILIRUBIN, TOTAL (test code = 220) 0.4 MG/DL ALKALINE PHOSPHATASE (test code = 2204) 66 U/L AST (test code = 2218) 35 U/L ALT (test code = 2219) 31 U/L Earnest FoyHEMOGLOBIN [id number] 00:00:00* Test Item Value Reference Range Interpretation Comme nts HEMOGLOBIN A1c (test code = 52786) 5.3 % Earnest FoyLIPID [id number] 00:00:00* Test Item Value Reference Range Interpretation Comme nts CHOLESTEROL (test code = 2210) 128 MG/DL TRIGLYCERIDES (test code = 2232) 112 MG/DL HDL CHOLESTEROL (test code = 2220) 36 MG/DL CALC LDL CHOL (test code = 2237) 72 MG/DL RISK RATIO LDL/HDL (test cod e = 2238) 2.00 RATIO Earnest FoyTSH, THIRD [id number] 00:00:00* Test Item Value Reference Range Interpretation Comme nts TSH, THIRD GENERATION (test code = 2821) 4.170 UIU/ML Earnest FoyVITAMIN D, 25 [id number] 00:00:00* Test Item Value Reference Range Interpretation Comme nts VITAMIN D, 25 OH (test code = 4958) 9 NG/ML Earnest FoyCBC W/AUTO [id number] 00:00:00* Test Item Value Reference Range Interpretation Comme nts WBC (test code = 1001) 8.1 K/UL RBC (test code = 1002) 4.43 M/UL HEMOGLOBIN (test code = 1003) 13.2 G/DL HEMATOCRIT (test code = 1004) 40.1 % MCV (test code = 1005) 90.5 fL MCH (test code = 1006) 29.8 PG MCHC (test code = 1007) 32.9 G/DL RDW (test code = 1038) 12.3 % NEUTROPHILS (test code = 1008) 64.6 % LYMPHOCYTES (test code = 1010) 17.9 % MONOCYTES (test code = 1011) 13.6 % EOSINOPHILS (test code = 1012) 3.0 % BASOPHILS (test code = 1013) 0.5 % IMMATURE GRANULOCYTES (test code = 1036) 0.4 % NUCLEATED RBCS (test code = 1065) 0.0 /100WBC'S PLATELET COUNT (test code = 1015) 185 K/UL ABSOLUTE NEUTROPHILS (test c ode = 1066) 5.23 K/UL ABSOLUTE LYMPHOCYTES (test c ode = 1067) 1.45 K/UL ABSOLUTE MONOCYTES (test cod e = 1068) 1.10 K/UL ABSOLUTE EOSINOPHILS (test c ode = 1040) 0.24 K/UL ABSOLUTE BASOPHILS (test cod e = 1069) 0.04 K/UL ABS IMMATURE GRANULOCYTES (t est code = 1020) 0.03 K/UL ABS NUCLEATED RBCS (test cod e = 33658) 0.00 K/UL Earnest FoyCOMPREHENSIVE METABOLIC [id number] 00:00:00* Test Item Value Reference Range Interpretation Comme nts GLUCOSE (test code = 2217) 78 MG/DL BUN (test code = 2208) 13 MG/DL CREATININE (test code = 2214) 0.69 MG/DL eGFR (2020 CKD-EPI) (test code = 07214) 127 ML/MIN/1.73 CALC BUN/CREAT (test code = 2235) 19 RATIO SODIUM (test code = 2231) 139 MEQ/L POTASSIUM (test code = 2228) 3.9 MEQ/L CHLORIDE (test code = 2215) 103 MEQ/L CARBON DIOXIDE (test code = 2206) 22 MEQ/L CALCIUM (test code = 2209) 9.7 MG/DL PROTEIN, TOTAL (test code = 2229) 7.9 G/DL ALBUMIN (test code = 2201) 4.6 G/DL CALC GLOBULIN (test code = 2240) 3.3 G/DL CALC A/G RATIO (test code = 2234) 1.4 RATIO BILIRUBIN, TOTAL (test code = 2207) 0.4 MG/DL ALKALINE PHOSPHATASE (test code = 2204) 66 U/L AST (test code = 2218) 35 U/L ALT (test code = 2219) 31 U/L Earnest FoyHEMOGLOBIN [id number] 00:00:00* Test Item Value Reference Range Interpretation Comme papito HEMOGLOBIN A1c (test code = 48828) 5.3 % Earnest FoyLIPID [id number] 00:00:00* Test Item Value Reference Range Interpretation Comme nts CHOLESTEROL (test code = 2210) 128 MG/DL TRIGLYCERIDES (test code = 2232) 112 MG/DL HDL CHOLESTEROL (test code = 2220) 36 MG/DL CALC LDL CHOL (test code = 2237) 72 MG/DL RISK RATIO LDL/HDL (test cod e = 2238) 2.00 RATIO Earnest FoyTSH, THIRD [id number] 00:00:00* Test Item Value Reference Range Interpretation Comme [facility] TSH, THIRD GENERATION (test code = 2821) 4.170 UIU/ML Earnest FoyVITAMIN D, 25 [id number] 00:00:00* Test Item Value Reference Range Interpretation Comme [facility] VITAMIN D, 25 OH (test code = 4958) 9 NG/ML Earnest FoyCBC W/AUTO [id number] 00:00:00* Test Item Value Reference Range Interpretation Comme papito WBC (test code = 1001) 8.1 K/UL RBC (test code = 1002) 4.43 M/UL HEMOGLOBIN (test code = 1003) 13.2 G/DL HEMATOCRIT (test code = 1004) 40.1 % MCV (test code = 1005) 90.5 fL MCH (test code = 1006) 29.8 PG MCHC (test code = 1007) 32.9 G/DL RDW (test code = 1038) 12.3 % NEUTROPHILS (test code = 1008) 64.6 % LYMPHOCYTES (test code = 1010) 17.9 % MONOCYTES (test code = 1011) 13.6 % EOSINOPHILS (test code = 1012) 3.0 % BASOPHILS (test code = 1013) 0.5 % IMMATURE GRANULOCYTES (test code = 1036) 0.4 % NUCLEATED RBCS (test code = 1065) 0.0 /100WBC'S PLATELET COUNT (test code = 1015) 185 K/UL ABSOLUTE NEUTROPHILS (test c ode = 1066) 5.23 K/UL ABSOLUTE LYMPHOCYTES (test c ode = 1067) 1.45 K/UL ABSOLUTE MONOCYTES (test cod e = 1068) 1.10 K/UL ABSOLUTE EOSINOPHILS (test c ode = 1040) 0.24 K/UL ABSOLUTE BASOPHILS (test cod e = 1069) 0.04 K/UL ABS IMMATURE GRANULOCYTES (t est code = 1020) 0.03 K/UL ABS NUCLEATED RBCS (test cod e = 59661) 0.00 K/UL Earnest FoyCOMPREHENSIVE METABOLIC [id number] 00:00:00* Test Item Value Reference Range Interpretation Comme nts GLUCOSE (test code = 2217) 78 MG/DL BUN (test code = 2208) 13 MG/DL CREATININE (test code = 2214) 0.69 MG/DL eGFR (2020 CKD-EPI) (test code = 02036) 127 ML/MIN/1.73 CALC BUN/CREAT (test code = 2235) 19 RATIO SODIUM (test code = 2231) 139 MEQ/L POTASSIUM (test code = 2228) 3.9 MEQ/L CHLORIDE (test code = 2215) 103 MEQ/L CARBON DIOXIDE (test code = 2206) 22 MEQ/L CALCIUM (test code = 2209) 9.7 MG/DL PROTEIN, TOTAL (test code = 2229) 7.9 G/DL ALBUMIN (test code = 2201) 4.6 G/DL CALC GLOBULIN (test code = 2240) 3.3 G/DL CALC A/G RATIO (test code = 2234) 1.4 RATIO BILIRUBIN, TOTAL (test code = 2207) 0.4 MG/DL ALKALINE PHOSPHATASE (test code = 2204) 66 U/L AST (test code = 2218) 35 U/L ALT (test code = 2219) 31 U/L Earnest FoyHEMOGLOBIN [id number] 00:00:00* Test Item Value Reference Range Interpretation Comme [facility] HEMOGLOBIN A1c (test code = 95993) 5.3 % Earnest FoyLIPID [id number] 00:00:00* Test Item Value Reference Range Interpretation Comme nts CHOLESTEROL (test code = 2210) 128 MG/DL TRIGLYCERIDES (test code = 2232) 112 MG/DL HDL CHOLESTEROL (test code = 2220) 36 MG/DL CALC LDL CHOL (test code = 2237) 72 MG/DL RISK RATIO LDL/HDL (test cod e = 2238) 2.00 RATIO Earnest FoyTSH, THIRD [id number] 00:00:00* Test Item Value Reference Range Interpretation Comme [facility] TSH, THIRD GENERATION (test code = 2821) 4.170 UIU/ML Earnest FoyVITAMIN D, 25 [id number] 00:00:00* Test Item Value Reference Range Interpretation Comme [facility] VITAMIN D, 25 OH (test code = 4958) 9 NG/ML Earnest FoyCBC W/AUTO [id number] 00:00:00* Test Item Value Reference Range Interpretation Comme [facility] WBC (test code = 1001) 8.1 K/UL RBC (test code = 1002) 4.43 M/UL HEMOGLOBIN (test code = 1003) 13.2 G/DL HEMATOCRIT (test code = 1004) 40.1 % MCV (test code = 1005) 90.5 fL MCH (test code = 1006) 29.8 PG MCHC (test code = 1007) 32.9 G/DL RDW (test code = 1038) 12.3 % NEUTROPHILS (test code = 1008) 64.6 % LYMPHOCYTES (test code = 1010) 17.9 % MONOCYTES (test code = 1011) 13.6 % EOSINOPHILS (test code = 1012) 3.0 % BASOPHILS (test code = 1013) 0.5 % IMMATURE GRANULOCYTES (test code = 1036) 0.4 % NUCLEATED RBCS (test code = 1065) 0.0 /100WBC'S PLATELET COUNT (test code = 1015) 185 K/UL ABSOLUTE NEUTROPHILS (test c ode = 1066) 5.23 K/UL ABSOLUTE LYMPHOCYTES (test c ode = 1067) 1.45 K/UL ABSOLUTE MONOCYTES (test cod e = 1068) 1.10 K/UL ABSOLUTE EOSINOPHILS (test c ode = 1040) 0.24 K/UL ABSOLUTE BASOPHILS (test cod e = 1069) 0.04 K/UL ABS IMMATURE GRANULOCYTES (t est code = 1020) 0.03 K/UL ABS NUCLEATED RBCS (test cod e = 68897) 0.00 K/UL Earnest FoyCOMPREHENSIVE METABOLIC [id number] 00:00:00* Test Item Value Reference Range Interpretation Comme nts GLUCOSE (test code = 2217) 78 MG/DL BUN (test code = 2208) 13 MG/DL CREATININE (test code = 2214) 0.69 MG/DL eGFR (2020 CKD-EPI) (test code = 47134) 127 ML/MIN/1.73 CALC BUN/CREAT (test code = 2235) 19 RATIO SODIUM (test code = 2231) 139 MEQ/L POTASSIUM (test code = 2228) 3.9 MEQ/L CHLORIDE (test code = 2215) 103 MEQ/L CARBON DIOXIDE (test code = 2206) 22 MEQ/L CALCIUM (test code = 2209) 9.7 MG/DL PROTEIN, TOTAL (test code = 2229) 7.9 G/DL ALBUMIN (test code = 2201) 4.6 G/DL CALC GLOBULIN (test code = 2240) 3.3 G/DL CALC A/G RATIO (test code = 2234) 1.4 RATIO BILIRUBIN, TOTAL (test code = 2207) 0.4 MG/DL ALKALINE PHOSPHATASE (test code = 2204) 66 U/L AST (test code = 2218) 35 U/L ALT (test code = 2219) 31 U/L Earnest FoyHEMOGLOBIN [id number] 00:00:00* Test Item Value Reference Range Interpretation Comme nts HEMOGLOBIN A1c (test code = 64776) 5.3 % Earnest FoyLIPID [id number] 00:00:00* Test Item Value Reference Range Interpretation Comme nts CHOLESTEROL (test code = 2210) 128 MG/DL TRIGLYCERIDES (test code = 2232) 112 MG/DL HDL CHOLESTEROL (test code = 2220) 36 MG/DL CALC LDL CHOL (test code = 2237) 72 MG/DL RISK RATIO LDL/HDL (test cod e = 2238) 2.00 RATIO Earnest FoyTSH, THIRD [id number] 00:00:00* Test Item Value Reference Range Interpretation Comme nts TSH, THIRD GENERATION (test code = 2821) 4.170 UIU/ML Earnest FoyVITAMIN D, 25 [id number] 00:00:00* Test Item Value Reference Range Interpretation Comme nts VITAMIN D, 25 OH (test code = 4958) 9 NG/ML Earnest FoyCBC W/AUTO [id number] 00:00:00* Test Item Value Reference Range Interpretation Comme nts WBC (test code = 1001) 8.1 K/UL RBC (test code = 1002) 4.43 M/UL HEMOGLOBIN (test code = 1003) 13.2 G/DL HEMATOCRIT (test code = 1004) 40.1 % MCV (test code = 1005) 90.5 fL MCH (test code = 1006) 29.8 PG MCHC (test code = 1007) 32.9 G/DL RDW (test code = 1038) 12.3 % NEUTROPHILS (test code = 1008) 64.6 % LYMPHOCYTES (test code = 1010) 17.9 % MONOCYTES (test code = 1011) 13.6 % EOSINOPHILS (test code = 1012) 3.0 % BASOPHILS (test code = 1013) 0.5 % IMMATURE GRANULOCYTES (test code = 1036) 0.4 % NUCLEATED RBCS (test code = 1065) 0.0 /100WBC'S PLATELET COUNT (test code = 1015) 185 K/UL ABSOLUTE NEUTROPHILS (test c ode = 1066) 5.23 K/UL ABSOLUTE LYMPHOCYTES (test c ode = 1067) 1.45 K/UL ABSOLUTE MONOCYTES (test cod e = 1068) 1.10 K/UL ABSOLUTE EOSINOPHILS (test c ode = 1040) 0.24 K/UL ABSOLUTE BASOPHILS (test cod e = 1069) 0.04 K/UL ABS IMMATURE GRANULOCYTES (t est code = 1020) 0.03 K/UL ABS NUCLEATED RBCS (test cod e = 47628) 0.00 K/UL Earnest FoyCOMPREHENSIVE METABOLIC [id number] 00:00:00* Test Item Value Reference Range Interpretation Comme nts GLUCOSE (test code = 2217) 78 MG/DL BUN (test code = 2208) 13 MG/DL CREATININE (test code = 2214) 0.69 MG/DL eGFR (2020 CKD-EPI) (test code = 77354) 127 ML/MIN/1.73 CALC BUN/CREAT (test code = 2235) 19 RATIO SODIUM (test code = 223) 139 MEQ/L POTASSIUM (test code = 2228) 3.9 MEQ/L CHLORIDE (test code = 2215) 103 MEQ/L CARBON DIOXIDE (test code = 2206) 22 MEQ/L CALCIUM (test code = 2209) 9.7 MG/DL PROTEIN, TOTAL (test code = 222) 7.9 G/DL ALBUMIN (test code = 220) 4.6 G/DL CALC GLOBULIN (test code = 2240) 3.3 G/DL CALC A/G RATIO (test code = 2234) 1.4 RATIO BILIRUBIN, TOTAL (test code = 2206) 0.4 MG/DL ALKALINE PHOSPHATASE (test code = 2204) 66 U/L AST (test code = 2218) 35 U/L ALT (test code = 2219) 31 U/L Earnest FoyHEMOGLOBIN [id number] 00:00:00* Test Item Value Reference Range Interpretation Comme [facility] HEMOGLOBIN A1c (test code = 73652) 5.3 % Earnest FoyLIPID [id number] 00:00:00* Test Item Value Reference Range Interpretation Comme [facility] CHOLESTEROL (test code = 2210) 128 MG/DL TRIGLYCERIDES (test code = 2232) 112 MG/DL HDL CHOLESTEROL (test code = 2220) 36 MG/DL CALC LDL CHOL (test code = 2237) 72 MG/DL RISK RATIO LDL/HDL (test cod e = 2238) 2.00 RATIO Earnest FoyTSH, THIRD [id number] 00:00:00* Test Item Value Reference Range Interpretation Comme [facility] TSH, THIRD GENERATION (test code = 2821) 4.170 UIU/ML Earnest FoyVITAMIN D, 25 [id number] 00:00:00* Test Item Value Reference Range Interpretation Comme [facility] VITAMIN D, 25 [place] (test code = 4958) 9 NG/ML Earnest Boyd LawCBC W/AUTO [id number] 00:00:00* Test Item Value Reference Range Interpretation Comme nts WBC (test code = 1001) 8.1 K/UL RBC (test code = 1002) 4.43 M/UL HEMOGLOBIN (test code = 1003) 13.2 G/DL HEMATOCRIT (test code = 1004) 40.1 % MCV (test code = 1005) 90.5 fL MCH (test code = 1006) 29.8 PG MCHC (test code = 1007) 32.9 G/DL RDW (test code = 1038) 12.3 % NEUTROPHILS (test code = 1008) 64.6 % LYMPHOCYTES (test code = 1010) 17.9 % MONOCYTES (test code = 1011) 13.6 % EOSINOPHILS (test code = 1012) 3.0 % BASOPHILS (test code = 1013) 0.5 % IMMATURE GRANULOCYTES (test code = 1036) 0.4 % NUCLEATED RBCS (test code = 1065) 0.0 /100WBC'S PLATELET COUNT (test code = 1015) 185 K/UL ABSOLUTE NEUTROPHILS (test c ode = 1066) 5.23 K/UL ABSOLUTE LYMPHOCYTES (test c ode = 1067) 1.45 K/UL ABSOLUTE MONOCYTES (test cod e = 1068) 1.10 K/UL ABSOLUTE EOSINOPHILS (test c ode = 1040) 0.24 K/UL ABSOLUTE BASOPHILS (test cod e = 1069) 0.04 K/UL ABS IMMATURE GRANULOCYTES (t est code = 1020) 0.03 K/UL ABS NUCLEATED RBCS (test cod e = 39535) 0.00 K/UL Earnest FoyCOMPREHENSIVE METABOLIC [id number] 00:00:00* Test Item Value Reference Range Interpretation Comme nts GLUCOSE (test code = 2217) 78 MG/DL BUN (test code = 2208) 13 MG/DL CREATININE (test code = 2214) 0.69 MG/DL eGFR (2020 CKD-EPI) (test code = 90259) 127 ML/MIN/1.73 CALC BUN/CREAT (test code = 2235) 19 RATIO SODIUM (test code = 2231) 139 MEQ/L POTASSIUM (test code = 2228) 3.9 MEQ/L CHLORIDE (test code = 2215) 103 MEQ/L CARBON DIOXIDE (test code = 2206) 22 MEQ/L CALCIUM (test code = 2209) 9.7 MG/DL PROTEIN, TOTAL (test code = 2229) 7.9 G/DL ALBUMIN (test code = 2201) 4.6 G/DL CALC GLOBULIN (test code = 2240) 3.3 G/DL CALC A/G RATIO (test code = 2234) 1.4 RATIO BILIRUBIN, TOTAL (test code = 2207) 0.4 MG/DL ALKALINE PHOSPHATASE (test code = 2204) 66 U/L AST (test code = 2218) 35 U/L ALT (test code = 2219) 31 U/L Earnest FoyHEMOGLOBIN [id number] 00:00:00* Test Item Value Reference Range Interpretation Comme [facility] HEMOGLOBIN A1c (test code = 48410) 5.3 % Earnest FoyLIPID [id number] 00:00:00* Test Item Value Reference Range Interpretation Comme nts CHOLESTEROL (test code = 2210) 128 MG/DL TRIGLYCERIDES (test code = 2232) 112 MG/DL HDL CHOLESTEROL (test code = 2220) 36 MG/DL CALC LDL CHOL (test code = 2237) 72 MG/DL RISK RATIO LDL/HDL (test cod e = 2238) 2.00 RATIO Earnest FoyTSH, THIRD [id number] 00:00:00* Test Item Value Reference Range Interpretation Comme [facility] TSH, THIRD GENERATION (test code = 2821) 4.170 UIU/ML Earnest FoyVITAMIN D, 25 [id number] 00:00:00* Test Item Value Reference Range Interpretation Comme [facility] VITAMIN D, 25 [place] (test code = 4958) 9 NG/ML Earnest FoyCBC W/AUTO [id number] 00:00:00* Test Item Value Reference Range Interpretation Comme nts WBC (test code = 1001) 8.1 K/UL RBC (test code = 1002) 4.43 M/UL HEMOGLOBIN (test code = 1003) 13.2 G/DL HEMATOCRIT (test code = 1004) 40.1 % MCV (test code = 1005) 90.5 fL MCH (test code = 1006) 29.8 PG MCHC (test code = 1007) 32.9 G/DL RDW (test code = 1038) 12.3 % NEUTROPHILS (test code = 1008) 64.6 % LYMPHOCYTES (test code = 1010) 17.9 % MONOCYTES (test code = 1011) 13.6 % EOSINOPHILS (test code = 1012) 3.0 % BASOPHILS (test code = 1013) 0.5 % IMMATURE GRANULOCYTES (test code = 1036) 0.4 % NUCLEATED RBCS (test code = 1065) 0.0 /100WBC'S PLATELET COUNT (test code = 1015) 185 K/UL ABSOLUTE NEUTROPHILS (test c ode = 1066) 5.23 K/UL ABSOLUTE LYMPHOCYTES (test c ode = 1067) 1.45 K/UL ABSOLUTE MONOCYTES (test cod e = 1068) 1.10 K/UL ABSOLUTE EOSINOPHILS (test c ode = 1040) 0.24 K/UL ABSOLUTE BASOPHILS (test cod e = 1069) 0.04 K/UL ABS IMMATURE GRANULOCYTES (t est code = 1020) 0.03 K/UL ABS NUCLEATED RBCS (test cod e = 14626) 0.00 K/UL Earnest FoyCOMPREHENSIVE METABOLIC [id number] 00:00:00* Test Item Value Reference Range Interpretation Comme nts GLUCOSE (test code = 2217) 78 MG/DL BUN (test code = 2208) 13 MG/DL CREATININE (test code = 2214) 0.69 MG/DL eGFR (2020 CKD-EPI) (test code = 27096) 127 ML/MIN/1.73 CALC BUN/CREAT (test code = 2235) 19 RATIO SODIUM (test code = 2231) 139 MEQ/L POTASSIUM (test code = 2228) 3.9 MEQ/L CHLORIDE (test code = 2215) 103 MEQ/L CARBON DIOXIDE (test code = 2206) 22 MEQ/L CALCIUM (test code = 2209) 9.7 MG/DL PROTEIN, TOTAL (test code = 2229) 7.9 G/DL ALBUMIN (test code = 2201) 4.6 G/DL CALC GLOBULIN (test code = 2240) 3.3 G/DL CALC A/G RATIO (test code = 2234) 1.4 RATIO BILIRUBIN, TOTAL (test code = 2207) 0.4 MG/DL ALKALINE PHOSPHATASE (test code = 2204) 66 U/L AST (test code = 2218) 35 U/L ALT (test code = 2219) 31 U/L Earnest FoyHEMOGLOBIN [id number] 00:00:00* Test Item Value Reference Range Interpretation Comme [facility] HEMOGLOBIN A1c (test code = 09505) 5.3 % Earnest FoyLIPID [id number] 00:00:00* Test Item Value Reference Range Interpretation Comme nts CHOLESTEROL (test code = 2210) 128 MG/DL TRIGLYCERIDES (test code = 2232) 112 MG/DL HDL CHOLESTEROL (test code = 2220) 36 MG/DL CALC LDL CHOL (test code = 2237) 72 MG/DL RISK RATIO LDL/HDL (test cod e = 2238) 2.00 RATIO Earnest FoyTSH, THIRD [id number] 00:00:00* Test Item Value Reference Range Interpretation Comme [facility] TSH, THIRD GENERATION (test code = 2821) 4.170 UIU/ML Earnest FoyVITAMIN D, 25 [id number] 00:00:00* Test Item Value Reference Range Interpretation Comme [facility] VITAMIN D, 25 [place] (test code = 4958) 9 NG/ML Earnest FoyCBC W/AUTO [id number] 00:00:00* Test Item Value Reference Range Interpretation Comme [facility] WBC (test code = 1001) 8.1 K/UL RBC (test code = 1002) 4.43 M/UL HEMOGLOBIN (test code = 1003) 13.2 G/DL HEMATOCRIT (test code = 1004) 40.1 % MCV (test code = 1005) 90.5 fL MCH (test code = 1006) 29.8 PG MCHC (test code = 1007) 32.9 G/DL RDW (test code = 1038) 12.3 % NEUTROPHILS (test code = 1008) 64.6 % LYMPHOCYTES (test code = 1010) 17.9 % MONOCYTES (test code = 1011) 13.6 % EOSINOPHILS (test code = 1012) 3.0 % BASOPHILS (test code = 1013) 0.5 % IMMATURE GRANULOCYTES (test code = 1036) 0.4 % NUCLEATED RBCS (test code = 1065) 0.0 /100WBC'S PLATELET COUNT (test code = 1015) 185 K/UL ABSOLUTE NEUTROPHILS (test c ode = 1066) 5.23 K/UL ABSOLUTE LYMPHOCYTES (test c ode = 1067) 1.45 K/UL ABSOLUTE MONOCYTES (test cod e = 1068) 1.10 K/UL ABSOLUTE EOSINOPHILS (test c ode = 1040) 0.24 K/UL ABSOLUTE BASOPHILS (test cod e = 1069) 0.04 K/UL ABS IMMATURE GRANULOCYTES (t est code = 1020) 0.03 K/UL ABS NUCLEATED RBCS (test cod e = 55891) 0.00 K/UL Earnest FoyCOMPREHENSIVE METABOLIC [id number] 00:00:00* Test Item Value Reference Range Interpretation Comme nts GLUCOSE (test code = 2217) 78 MG/DL BUN (test code = 2208) 13 MG/DL CREATININE (test code = 2214) 0.69 MG/DL eGFR (2020 CKD-EPI) (test code = 00602) 127 ML/MIN/1.73 CALC BUN/CREAT (test code = 2235) 19 RATIO SODIUM (test code = 2231) 139 MEQ/L POTASSIUM (test code = 2228) 3.9 MEQ/L CHLORIDE (test code = 2215) 103 MEQ/L CARBON DIOXIDE (test code = 2206) 22 MEQ/L CALCIUM (test code = 2209) 9.7 MG/DL PROTEIN, TOTAL (test code = 2229) 7.9 G/DL ALBUMIN (test code = 2201) 4.6 G/DL CALC GLOBULIN (test code = 2240) 3.3 G/DL CALC A/G RATIO (test code = 2234) 1.4 RATIO BILIRUBIN, TOTAL (test code = 2207) 0.4 MG/DL ALKALINE PHOSPHATASE (test code = 2204) 66 U/L AST (test code = 2218) 35 U/L ALT (test code = 2219) 31 U/L Earnest FoyHEMOGLOBIN [id number] 00:00:00* Test Item Value Reference Range Interpretation Comme nts HEMOGLOBIN A1c (test code = 40529) 5.3 % Earnest FoyLIPID [id number] 00:00:00* Test Item Value Reference Range Interpretation Comme nts CHOLESTEROL (test code = 2210) 128 MG/DL TRIGLYCERIDES (test code = 2232) 112 MG/DL HDL CHOLESTEROL (test code = 2220) 36 MG/DL CALC LDL CHOL (test code = 2237) 72 MG/DL RISK RATIO LDL/HDL (test cod e = 2238) 2.00 RATIO Earnest FoyTSH, THIRD [id number] 00:00:00* Test Item Value Reference Range Interpretation Comme nts TSH, THIRD GENERATION (test code = 2821) 4.170 UIU/ML Earnest FoyVITAMIN D, 25 [id number] 00:00:00* Test Item Value Reference Range Interpretation Comme nts VITAMIN D, 25 [place] (test code = 4958) 9 NG/ML Earnest FoyCBC W/AUTO [id number] 00:00:00* Test Item Value Reference Range Interpretation Comme nts WBC (test code = 1001) 8.1 K/UL RBC (test code = 1002) 4.43 M/UL HEMOGLOBIN (test code = 1003) 13.2 G/DL HEMATOCRIT (test code = 1004) 40.1 % MCV (test code = 1005) 90.5 fL MCH (test code = 1006) 29.8 PG MCHC (test code = 1007) 32.9 G/DL RDW (test code = 1038) 12.3 % NEUTROPHILS (test code = 1008) 64.6 % LYMPHOCYTES (test code = 1010) 17.9 % MONOCYTES (test code = 1011) 13.6 % EOSINOPHILS (test code = 1012) 3.0 % BASOPHILS (test code = 1013) 0.5 % IMMATURE GRANULOCYTES (test code = 1036) 0.4 % NUCLEATED RBCS (test code = 1065) 0.0 /100WBC'S PLATELET COUNT (test code = 1015) 185 K/UL ABSOLUTE NEUTROPHILS (test c ode = 1066) 5.23 K/UL ABSOLUTE LYMPHOCYTES (test c ode = 1067) 1.45 K/UL ABSOLUTE MONOCYTES (test cod e = 1068) 1.10 K/UL ABSOLUTE EOSINOPHILS (test c ode = 1040) 0.24 K/UL ABSOLUTE BASOPHILS (test cod e = 1069) 0.04 K/UL ABS IMMATURE GRANULOCYTES (t est code = 1020) 0.03 K/UL ABS NUCLEATED RBCS (test cod e = 87985) 0.00 K/UL Earnest FoyHSV 1 AND 2 BY [id number] 23:35:27* Test Item Value Reference Range Interpretation Comments HSV 1 (test code = 16160) Negative HSV 2 (test code = 36248) Negative SOURCE (test code = 50370) Not Specified The expected res ult is negative. A negative result does not ruleout the presence of Herpes Simplex Virus DNA concentrations belowthe level of detection or sampling error. If clinically indicated, consider testing for Monkeypox Virus,which may also present with both oral and genital lesions similarto Herpes Simplex Virus infection. Assay methodology is multiplex real-time PCR. This test was developed and its performance characteristicsdetermined by [facility] ([facility]). It has not beencleared or approved by the U.S. Food and Drug Administration (FDA).The FDA has determined that such clearance or approval is notnecessary. This test is used for clinical purposes and should not beregarded as investigational or for research. [facility] is qualified toperform high complexity testing under the Clinical LaboratoryImprovement Amendments (CLIA). SPECIMEN (test code = 91972) SEE NOTE [employer] TESTING PERFORMED AT [facility] [address] [place] [address], [address], [address] [address] CLIA NO: [id number] HSV I AND II BY [id number] 00:00:00* Test Item Value Reference Range Interpretation Comme nts HSV 1 (test code = 25286) Negative HSV 2 (test code = 65281) Negative SOURCE (test code = 83737) Not Specified SPECIMEN (test code = 81934) SEE NOTE Earnest Boyd AustinHSV I AND II BY [id number] 00:00:00* Test Item Value Reference Range Interpretation Comme nts HSV 1 (test code = 42111) Negative HSV 2 (test code = 25697) Negative SOURCE (test code = 90906) Not Specified SPECIMEN (test code = 79646) SEE NOTE Earnest Boyd AustinHSV I AND II BY [id number] 00:00:00* Test Item Value Reference Range Interpretation Comme nts HSV 1 (test code = 20197) Negative HSV 2 (test code = 13966) Negative SOURCE (test code = 50826) Not Specified SPECIMEN (test code = 25296) SEE NOTE Earnest Boyd AustinHSV I AND II BY [id number] 00:00:00* Test Item Value Reference Range Interpretation Comme nts HSV 1 (test code = 46615) Negative HSV 2 (test code = 78429) Negative SOURCE (test code = 78794) Not Specified SPECIMEN (test code = 92795) SEE NOTE Earnest F AustinHSV I AND II BY [id number] 00:00:00* Test Item Value Reference Range Interpretation Comme nts HSV 1 (test code = 78813) Negative HSV 2 (test code = 45662) Negative SOURCE (test code = 00112) Not Specified SPECIMEN (test code = 42332) SEE NOTE Earnest F AustinHSV I AND II BY [id number] 00:00:00* Test Item Value Reference Range Interpretation Comme nts HSV 1 (test code = 43597) Negative HSV 2 (test code = 84787) Negative SOURCE (test code = 12358) Not Specified SPECIMEN (test code = 17708) SEE NOTE Earnest F AustinHSV I AND II BY [id number] 00:00:00* Test Item Value Reference Range Interpretation Comme nts HSV 1 (test code = 27229) Negative HSV 2 (test code = 98193) Negative SOURCE (test code = 81338) Not Specified SPECIMEN (test code = 09196) SEE NOTE Earnest F AustinHSV I AND II BY [id number] 00:00:00* Test Item Value Reference Range Interpretation Comme nts HSV 1 (test code = 85199) Negative HSV 2 (test code = 52560) Negative SOURCE (test code = 01458) Not Specified SPECIMEN (test code = 89120) SEE NOTE Earnest F AustinHSV I AND II BY [id number] 00:00:00* Test Item Value Reference Range Interpretation Comme nts HSV 1 (test code = 78842) Negative HSV 2 (test code = 34036) Negative SOURCE (test code = 07110) Not Specified SPECIMEN (test code = 58194) SEE NOTE Earnest F AustinHSV I AND II BY [id number] 00:00:00* Test Item Value Reference Range Interpretation Comme nts HSV 1 (test code = 96918) Negative HSV 2 (test code = 09388) Negative SOURCE (test code = 62735) Not Specified SPECIMEN (test code = 76284) SEE NOTE Earnest F AustinVAGINAL PATHOGENS DNA [id number] 13:19:25* Test Item Value Reference Range Interpretation Comme nts RFAAELA SPECIES (test code = 90507) NEGATIVE NEGATIVE G. VAGINALIS (test code = 37216) POSITIVE NEGATIVE A T. VAGINALIS (test code = 77917) NEGATIVE NEGATIVE Note: The [facility] irm VPIII Microbial Identification Testis a DNA probe test intended for use in the detectionand identification of Rafaela species, Gardnerellavaginalis and Trichomonas vaginalis nucleic acid. HIV 1/2 4TH GEN, RFLX [id number] 06:41:39* Test Item Value Reference Range Interpretation Comme nts HIV 1/2 4TH GEN, RFLX CONF ( test code = 3514) NON-REACTIVE NON-REACTIVE HEPATITIS PANEL, [id number] 06:41:39* Test Item Value Reference Range Interpretation Comments HEPATITIS A TOTAL AB (test code = 2725) REACTIVE NON-REACTIVE A HEPATITIS B SURF AG (test code = 2739) NON-REACTIVE NON-REACTIVE HEP B CORE TOTAL AB (test code = 2729) NON-REACTIVE NON-REACTIVE HEPATITIS B SURFACE AB (test code = 2737) NON-REACTIVE NON-REACTIVE HEPATITIS C ANTIBODY (test code = 4675) NON-REACTIVE NON-REACTIVE INTERPRETATION HEPATITIS A: (test code = 2552) (NOTE) Hepatitis A sero logy consistent with past exposure or previousvaccination to hepatitis A virus. No evidence of current acutehepatitis A infection. INTERPRETATION HEPATITIS B: (test code = 90767) (NOTE) Hepatitis B sero logy shows no evidence of past exposure to orcurrent infection with hepatitis B virus. No evidence of hepatitis Bimmunization is identified. INTERPRETATION HEPATITIS C: (test code = 54696) (NOTE) Hepatitis C sero logy shows no evidence of exposure to hepatitisC virus at this time. It can take up to 12 months after exposure tothe hepatitis C virus for antibodies to become detectable in the blood in certain patients. HEPATITIS A [id number] 06:41:39* Test Item Value Reference Range Interpretation Comme nts HEPATITIS A IgM (test code = 2728) NON-REACTIVE NON-REACTIVE UNLESS OTHERW ISE INDICATED, ALL TESTING PERFORMED AT [facility] [address] [place] [id number] PUPPY WALKER: JOLEEN MORENO M.D. CLIA NUMBER [id number] [place]. [id number] RPR REFLEX TO T. PALLIDUM - [id number] 05:22:32* Test Item Value Reference Range Interpretation Comme nts RPR (test code = 34646) NON-REACTIVE NON-REACTIVE RPR TITER (test code = 3500) NOT INDIC. TITER NOT INDIC. HIV 1/2 4TH GEN, RFLX [id number] 00:00:00* Test Item Value Reference Range Interpretation Comme nts HIV 1/2 4TH GEN, RFLX CONF ( test code = 3514) NON-REACTIVE Earnest Boyd AustinHEPATITIS PROFILE (A,B,C)2023-06-18 00:00:00* Test Item Value Reference Range Interpretation Comme nts HEPATITIS A TOTAL AB (test c ode = 2725) REACTIVE HEPATITIS B SURF AG (test co de = 2739) NON-REACTIVE HEP B CORE TOTAL AB (test co de = 2729) NON-REACTIVE HEPATITIS B SURFACE AB (test code = 2737) NON-REACTIVE HEPATITIS C ANTIBODY (test c ode = 4637) NON-REACTIVE INTERPRETATION HEPATITIS A: (test code = 2552) (NOTE) INTERPRETATION HEPATITIS B: (test code = 40967) (NOTE) INTERPRETATION HEPATITIS C: (test code = 54377) (NOTE) Earnest Boyd AustinVAGINAL PATHOGENS DNA [id number] 00:00:00* Test Item Value Reference Range Interpretation Comme nts RAFAELA SPECIES (test code = 29995) NEGATIVE G. VAGINALIS (test code = 06081) POSITIVE T. VAGINALIS (test code = 67984) NEGATIVE Earnest Boyd AustinHEPATITIS A IgM [REFLEX]2023-06-18 00:00:00* Test Item Value Reference Range Interpretation Comme nts HEPATITIS A IgM (test code = 2728) NON-REACTIVE Earnest Boyd AustinRPR REFLEX TO T. PALLIDUM - [id number] 00:00:00* Test Item Value Reference Range Interpretation Comme nts RPR (test code = 22650) NON-REACTIVE RPR TITER (test code = 3500) NOT INDIC. TITER Earnest Boyd AustinHIV 1/2 4TH GEN, RFLX [id number] 00:00:00* Test Item Value Reference Range Interpretation Comme nts HIV 1/2 4TH GEN, RFLX CONF ( test code = 3514) NON-REACTIVE Earnest Boyd AustinHEPATITIS PROFILE (A,B,C)2023-06-18 00:00:00* Test Item Value Reference Range Interpretation Comme nts HEPATITIS A TOTAL AB (test c ode = 2725) REACTIVE HEPATITIS B SURF AG (test co de = 2739) NON-REACTIVE HEP B CORE TOTAL AB (test co de = 2729) NON-REACTIVE HEPATITIS B SURFACE AB (test code = 2737) NON-REACTIVE HEPATITIS C ANTIBODY (test c ode = 4675) NON-REACTIVE INTERPRETATION HEPATITIS A: (test code = 2552) (NOTE) INTERPRETATION HEPATITIS B: (test code = 41034) (NOTE) INTERPRETATION HEPATITIS C: (test code = 32757) (NOTE) Earnest FoyVAGINAL PATHOGENS DNA [id number] 00:00:00* Test Item Value Reference Range Interpretation Comme nts RAFAELA SPECIES (test code = ) NEGATIVE G. VAGINALIS (test code = ) POSITIVE T. VAGINALIS (test code = ) NEGATIVE Earnest FoyHEPATITIS A IgM [REFLEX]2023-06-18 00:00:00* Test Item Value Reference Range Interpretation Comme nts HEPATITIS A IgM (test code = 2728) NON-REACTIVE Earnest Boyd AustinRPR REFLEX TO T. PALLIDUM - [id number] 00:00:00* Test Item Value Reference Range Interpretation Comme nts RPR (test code = 73813) NON-REACTIVE RPR TITER (test code = 3500) NOT INDIC. TITER Earnest Boyd AustinHIV 1/2 4TH GEN, RFLX [id number] 00:00:00* Test Item Value Reference Range Interpretation Comme nts HIV 1/2 4TH GEN, RFLX CONF ( test code = 3514) NON-REACTIVE Earnest FoyHEPATITIS PROFILE (A,B,C)2023-06-18 00:00:00* Test Item Value Reference Range Interpretation Comme nts HEPATITIS A TOTAL AB (test c ode = 2725) REACTIVE HEPATITIS B SURF AG (test co de = 2739) NON-REACTIVE HEP B CORE TOTAL AB (test co de = 2729) NON-REACTIVE HEPATITIS B SURFACE AB (test code = 2737) NON-REACTIVE HEPATITIS C ANTIBODY (test c ode = 4675) NON-REACTIVE INTERPRETATION HEPATITIS A: (test code = 2552) (NOTE) INTERPRETATION HEPATITIS B: (test code = 98875) (NOTE) INTERPRETATION HEPATITIS C: (test code = 28133) (NOTE) Earnest Boyd AustinVAGINAL PATHOGENS DNA [id number] 00:00:00* Test Item Value Reference Range Interpretation Comme nts RAFAELA SPECIES (test code = ) NEGATIVE G. VAGINALIS (test code = ) POSITIVE T. VAGINALIS (test code = ) NEGATIVE Earnest Boyd AustinHEPATITIS A IgM [REFLEX]2023-06-18 00:00:00* Test Item Value Reference Range Interpretation Comme nts HEPATITIS A IgM (test code = 2728) NON-REACTIVE Earnest Boyd AustinRPR REFLEX TO T. PALLIDUM - [id number] 00:00:00* Test Item Value Reference Range Interpretation Comme nts RPR (test code = 02723) NON-REACTIVE RPR TITER (test code = 3500) NOT INDIC. TITER Earnest Byod AustinHIV 1/2 4TH GEN, RFLX [id number] 00:00:00* Test Item Value Reference Range Interpretation Comme nts HIV 1/2 4TH GEN, RFLX CONF ( test code = 3514) NON-REACTIVE Earnest FoyHEPATITIS PROFILE (A,B,C)2023-06-18 00:00:00* Test Item Value Reference Range Interpretation Comme nts HEPATITIS A TOTAL AB (test c ode = 2725) REACTIVE HEPATITIS B SURF AG (test co de = 2739) NON-REACTIVE HEP B CORE TOTAL AB (test co de = 2729) NON-REACTIVE HEPATITIS B SURFACE AB (test code = 2737) NON-REACTIVE HEPATITIS C ANTIBODY (test c ode = 4675) NON-REACTIVE INTERPRETATION HEPATITIS A: (test code = 2552) (NOTE) INTERPRETATION HEPATITIS B: (test code = 03138) (NOTE) INTERPRETATION HEPATITIS C: (test code = 32205) (NOTE) Earnest Boyd AustinVAGINAL PATHOGENS DNA [id number] 00:00:00* Test Item Value Reference Range Interpretation Comme nts RAFAELA SPECIES (test code = ) NEGATIVE G. VAGINALIS (test code = ) POSITIVE T. VAGINALIS (test code = 58788) NEGATIVE Earnest Boyd AustinHEPATITIS A IgM [REFLEX]2023-06-18 00:00:00* Test Item Value Reference Range Interpretation Comme nts HEPATITIS A IgM (test code = 2728) NON-REACTIVE Earnest Boyd AustinRPR REFLEX TO T. PALLIDUM - [id number] 00:00:00* Test Item Value Reference Range Interpretation Comme nts RPR (test code = 59388) NON-REACTIVE RPR TITER (test code = 3500) NOT INDIC. TITER Earnest FoyHIV 1/2 4TH GEN, RFLX [id number] 00:00:00* Test Item Value Reference Range Interpretation Comme nts HIV 1/2 4TH GEN, RFLX CONF ( test code = 3514) NON-REACTIVE Earnest Boyd AustinHEPATITIS PROFILE (A,B,C)2023-06-18 00:00:00* Test Item Value Reference Range Interpretation Comme nts HEPATITIS A TOTAL AB (test c ode = 2725) REACTIVE HEPATITIS B SURF AG (test co de = 2739) NON-REACTIVE HEP B CORE TOTAL AB (test co de = 2729) NON-REACTIVE HEPATITIS B SURFACE AB (test code = 2737) NON-REACTIVE HEPATITIS C ANTIBODY (test c ode = 4675) NON-REACTIVE INTERPRETATION HEPATITIS A: (test code = 2552) (NOTE) INTERPRETATION HEPATITIS B: (test code = 23795) (NOTE) INTERPRETATION HEPATITIS C: (test code = 70435) (NOTE) Earnest Boyd AustinVAGINAL PATHOGENS DNA [id number] 00:00:00* Test Item Value Reference Range Interpretation Comme nts RAFAELA SPECIES (test code = 78850) NEGATIVE G. VAGINALIS (test code = 51488) POSITIVE T. VAGINALIS (test code = 10940) NEGATIVE Earnest Boyd AustinHEPATITIS A IgM [REFLEX]2023-06-18 00:00:00* Test Item Value Reference Range Interpretation Comme nts HEPATITIS A IgM (test code = 2728) NON-REACTIVE Earnest Boyd AustinRPR REFLEX TO T. PALLIDUM - [id number] 00:00:00* Test Item Value Reference Range Interpretation Comme nts RPR (test code = 10774) NON-REACTIVE RPR TITER (test code = 3500) NOT INDIC. TITER Earnest FoyHIV 1/2 4TH GEN, RFLX [id number] 00:00:00* Test Item Value Reference Range Interpretation Comme nts HIV 1/2 4TH GEN, RFLX CONF ( test code = 3514) NON-REACTIVE Earnest Boyd AustinHEPATITIS PROFILE (A,B,C)2023-06-18 00:00:00* Test Item Value Reference Range Interpretation Comme nts HEPATITIS A TOTAL AB (test c ode = 2725) REACTIVE HEPATITIS B SURF AG (test co de = 2739) NON-REACTIVE HEP B CORE TOTAL AB (test co de = 2729) NON-REACTIVE HEPATITIS B SURFACE AB (test code = 2737) NON-REACTIVE HEPATITIS C ANTIBODY (test c ode = 4675) NON-REACTIVE INTERPRETATION HEPATITIS A: (test code = 2552) (NOTE) INTERPRETATION HEPATITIS B: (test code = 90758) (NOTE) INTERPRETATION HEPATITIS C: (test code = 95261) (NOTE) Earnest Boyd AustinVAGINAL PATHOGENS DNA [id number] 00:00:00* Test Item Value Reference Range Interpretation Comme nts RAFAELA SPECIES (test code = 17639) NEGATIVE G. VAGINALIS (test code = ) POSITIVE T. VAGINALIS (test code = ) NEGATIVE Earnest Boyd AustinHEPATITIS A IgM [REFLEX]2023-06-18 00:00:00* Test Item Value Reference Range Interpretation Comme nts HEPATITIS A IgM (test code = 2728) NON-REACTIVE Earnest Boyd AustinRPR REFLEX TO T. PALLIDUM - [id number] 00:00:00* Test Item Value Reference Range Interpretation Comme nts RPR (test code = 50906) NON-REACTIVE RPR TITER (test code = 3500) NOT INDIC. TITER Earnest Boyd [place]HIV 1/2 4TH GEN, RFLX [id number] 00:00:00* Test Item Value Reference Range Interpretation Comme nts HIV 1/2 4TH GEN, RFLX CONF ( test code = 3514) NON-REACTIVE Earnest Boyd AustinHEPATITIS PROFILE (A,B,C)2023-06-18 00:00:00* Test Item Value Reference Range Interpretation Comme nts HEPATITIS A TOTAL AB (test c ode = 2725) REACTIVE HEPATITIS B SURF AG (test co de = 2739) NON-REACTIVE HEP B CORE TOTAL AB (test co de = 2729) NON-REACTIVE HEPATITIS B SURFACE AB (test code = 2737) NON-REACTIVE HEPATITIS C ANTIBODY (test c ode = 4675) NON-REACTIVE INTERPRETATION HEPATITIS A: (test code = 2552) (NOTE) INTERPRETATION HEPATITIS B: (test code = 38317) (NOTE) INTERPRETATION HEPATITIS C: (test code = 48712) (NOTE) Earnest Boyd AustinVAGINAL PATHOGENS DNA [id number] 00:00:00* Test Item Value Reference Range Interpretation Comme nts RAFAELA SPECIES (test code = ) NEGATIVE G. VAGINALIS (test code = ) POSITIVE T. VAGINALIS (test code = ) NEGATIVE Earnest Boyd AustinHEPATITIS A IgM [REFLEX]2023-06-18 00:00:00* Test Item Value Reference Range Interpretation Comme nts HEPATITIS A IgM (test code = 2728) NON-REACTIVE Earnest Boyd AustinRPR REFLEX TO T. PALLIDUM - [id number] 00:00:00* Test Item Value Reference Range Interpretation Comme nts RPR (test code = 28719) NON-REACTIVE RPR TITER (test code = 3500) NOT INDIC. TITER Earnest Boyd AustinHIV 1/2 4TH GEN, RFLX [id number] 00:00:00* Test Item Value Reference Range Interpretation Comme nts HIV 1/2 4TH GEN, RFLX CONF ( test code = 3514) NON-REACTIVE Earnest Boyd AustinHEPATITIS PROFILE (A,B,C)2023-06-18 00:00:00* Test Item Value Reference Range Interpretation Comme nts HEPATITIS A TOTAL AB (test c ode = 2725) REACTIVE HEPATITIS B SURF AG (test co de = 2739) NON-REACTIVE HEP B CORE TOTAL AB (test co de = 2729) NON-REACTIVE HEPATITIS B SURFACE AB (test code = 2737) NON-REACTIVE HEPATITIS C ANTIBODY (test c ode = 4675) NON-REACTIVE INTERPRETATION HEPATITIS A: (test code = 2552) (NOTE) INTERPRETATION HEPATITIS B: (test code = 93169) (NOTE) INTERPRETATION HEPATITIS C: (test code = 63812) (NOTE) Earnest Boyd AustinVAGINAL PATHOGENS DNA [id number] 00:00:00* Test Item Value Reference Range Interpretation Comme nts RAFAELA SPECIES (test code = ) NEGATIVE G. VAGINALIS (test code = ) POSITIVE T. VAGINALIS (test code = ) NEGATIVE Earnest Boyd AustinHEPATITIS A IgM [REFLEX]2023-06-18 00:00:00* Test Item Value Reference Range Interpretation Comme nts HEPATITIS A IgM (test code = 2728) NON-REACTIVE Earnest Boyd AustinRPR REFLEX TO T. PALLIDUM - [id number] 00:00:00* Test Item Value Reference Range Interpretation Comme nts RPR (test code = 74523) NON-REACTIVE RPR TITER (test code = 3500) NOT INDIC. TITER Earnest Boyd AustinHIV 1/2 4TH GEN, RFLX [id number] 00:00:00* Test Item Value Reference Range Interpretation Comme nts HIV 1/2 4TH GEN, RFLX CONF ( test code = 3514) NON-REACTIVE Earnest Boyd AustinHEPATITIS PROFILE (A,B,C)2023-06-18 00:00:00* Test Item Value Reference Range Interpretation Comme nts HEPATITIS A TOTAL AB (test c ode = 2725) REACTIVE HEPATITIS B SURF AG (test co de = 2739) NON-REACTIVE HEP B CORE TOTAL AB (test co de = 2729) NON-REACTIVE HEPATITIS B SURFACE AB (test code = 2737) NON-REACTIVE HEPATITIS C ANTIBODY (test c ode = 4675) NON-REACTIVE INTERPRETATION HEPATITIS A: (test code = 2552) (NOTE) INTERPRETATION HEPATITIS B: (test code = 84184) (NOTE) INTERPRETATION HEPATITIS C: (test code = 92096) (NOTE) Earnest Boyd AustinVAGINAL PATHOGENS DNA [id number] 00:00:00* Test Item Value Reference Range Interpretation Comme nts RAFAELA SPECIES (test code = 90603) NEGATIVE G. VAGINALIS (test code = 75382) POSITIVE T. VAGINALIS (test code = 80615) NEGATIVE Earnest Boyd AustinHEPATITIS A IgM [REFLEX]2023-06-18 00:00:00* Test Item Value Reference Range Interpretation Comme nts HEPATITIS A IgM (test code = 2728) NON-REACTIVE Earnest Boyd AustinRPR REFLEX TO T. PALLIDUM - [id number] 00:00:00* Test Item Value Reference Range Interpretation Comme nts RPR (test code = 43464) NON-REACTIVE RPR TITER (test code = 3500) NOT INDIC. TITER Earnest Boyd AustinHIV 1/2 4TH GEN, RFLX [id number] 00:00:00* Test Item Value Reference Range Interpretation Comme nts HIV 1/2 4TH GEN, RFLX CONF ( test code = 3514) NON-REACTIVE Earnest FoyHEPATITIS PROFILE (A,B,C)2023-06-18 00:00:00* Test Item Value Reference Range Interpretation Comme nts HEPATITIS A TOTAL AB (test c ode = 2725) REACTIVE HEPATITIS B SURF AG (test co de = 2739) NON-REACTIVE HEP B CORE TOTAL AB (test co de = 2729) NON-REACTIVE HEPATITIS B SURFACE AB (test code = 2737) NON-REACTIVE HEPATITIS C ANTIBODY (test c ode = 4675) NON-REACTIVE INTERPRETATION HEPATITIS A: (test code = 2552) (NOTE) INTERPRETATION HEPATITIS B: (test code = 14954) (NOTE) INTERPRETATION HEPATITIS C: (test code = 62706) (NOTE) Earnest FoyVAGINAL PATHOGENS DNA [id number] 00:00:00* Test Item Value Reference Range Interpretation Comme nts RAFAELA SPECIES (test code = 62830) NEGATIVE G. VAGINALIS (test code = 78024) POSITIVE T. VAGINALIS (test code = 10582) NEGATIVE Earnest FoyHEPATITIS A IgM [REFLEX]2023-06-18 00:00:00* Test Item Value Reference Range Interpretation Comme nts HEPATITIS A IgM (test code = 2728) NON-REACTIVE Earnest Boyd AustinRPR REFLEX TO T. PALLIDUM - [id number] 00:00:00* Test Item Value Reference Range Interpretation Comme nts RPR (test code = 98364) NON-REACTIVE RPR TITER (test code = 3500) NOT INDIC. TITER Earnest Boyd AustinTSH, THIRD [id number] 06:48:51* Test Item Value Reference Range Interpretation Comme nts TSH, THIRD GENERATION (test code = 2821) 3.290 UIU/ML 0.400-4.100 [id number] 06:48:51* Test Item Value Reference Range Interpretation Comme nts PROLACTIN (test code = 2800) 16.7 NG/ML 5.0-37.0 NOTE: Methodolog y is Aubrey Bruno Electrochemiluminescence Immunoassay (ECLIA). Values obtained with different assays/manufacturers cannot be used interchangeably. Results should not be used as sole basis to establish the presence or absence of malignancy. FSH + LH [id number] 06:48:51* Test Item Value Reference Range Interpretation Comme nts FOLLICLE STIM HORMONE (test code = 2700) 5.0 IU/L SEE BELOW EXPEC SUNDEEP VALUES FOR FSH FOR FEMALES >17 YEARS FOLLICULAR 3.5-12.5 IU/L MID-CYCLE PEAK 4.7-21.5 IU/L LUTEAL PHASE 1.7-7.7 IU/L POSTMENOPAUSAL 25.8-134.8 IU/L LUTEINIZING HORMONE (test code = 2776) 5.3 IU/L SEE BELOW EXPEC SUNDEEP VALUES FOR LH FOR FEMALES >17 YEARS MALES FEMALES >=18 YEARS 1.8-8.6 IU/L FOLLICULAR 2.4-12.6 IU/L MID-CYCLE PEAK 14.0-95.6 IU/L LUTEAL PHASE 1.0-11.4 IU/L POSTMENOPAUSAL 7.7-58.5 IU/L UNLESS OTHERWISE INDICATED, ALL TESTING PERFORMED AT [facility] [employer] [employer] [address] [place] [address] PUPPY WALKER: JOLEEN MORENO M.D. CLIA NUMBER [id number] [facility] [place]. [id number] FSH + LH [id number] 00:00:00* Test Item Value Reference Range Interpretation Comme [facility] FOLLICLE STIM HORMONE (test code = 2700) 5.0 IU/L LUTEINIZING HORMONE (test co de = 2776) 5.3 IU/L Earnest Boyd [id number] 00:00:00* Test Item Value Reference Range Interpretation Comme nts TSH, THIRD GENERATION (test code = 2821) 3.290 UIU/ML Earnest Boyd [id number] 00:00:00* Test Item Value Reference Range Interpretation Comme nts PROLACTIN (test code = 2800) 16.7 NG/ML Earnest FoyFSH + LH [id number] 00:00:00* Test Item Value Reference Range Interpretation Comme nts FOLLICLE STIM HORMONE (test code = 2700) 5.0 IU/L LUTEINIZING HORMONE (test co de = 2776) 5.3 IU/L Earnest Boyd [id number] 00:00:00* Test Item Value Reference Range Interpretation Comme nts TSH, THIRD GENERATION (test code = 2821) 3.290 UIU/ML Earnest F [id number] 00:00:00* Test Item Value Reference Range Interpretation Comme nts PROLACTIN (test code = 2800) 16.7 NG/ML Earnest F AustinFSH + LH [id number] 00:00:00* Test Item Value Reference Range Interpretation Comme nts FOLLICLE STIM HORMONE (test code = 2700) 5.0 IU/L LUTEINIZING HORMONE (test co de = 2776) 5.3 IU/L Earnest F [id number] 00:00:00* Test Item Value Reference Range Interpretation Comme nts TSH, THIRD GENERATION (test code = 2821) 3.290 UIU/ML Earnest F [id number] 00:00:00* Test Item Value Reference Range Interpretation Comme nts PROLACTIN (test code = 2800) 16.7 NG/ML Earnest F AustinFSH + LH [id number] 00:00:00* Test Item Value Reference Range Interpretation Comme nts FOLLICLE STIM HORMONE (test code = 2700) 5.0 IU/L LUTEINIZING HORMONE (test co de = 2776) 5.3 IU/L Earnest F [id number] 00:00:00* Test Item Value Reference Range Interpretation Comme nts TSH, THIRD GENERATION (test code = 2821) 3.290 UIU/ML Earnest F [id number] 00:00:00* Test Item Value Reference Range Interpretation Comme nts PROLACTIN (test code = 2800) 16.7 NG/ML Earnest F AustinFSH + LH [id number] 00:00:00* Test Item Value Reference Range Interpretation Comme nts FOLLICLE STIM HORMONE (test code = 2700) 5.0 IU/L LUTEINIZING HORMONE (test co de = 2776) 5.3 IU/L Earnest F [id number] 00:00:00* Test Item Value Reference Range Interpretation Comme nts TSH, THIRD GENERATION (test code = 2821) 3.290 UIU/ML Earnest F [id number] 00:00:00* Test Item Value Reference Range Interpretation Comme nts PROLACTIN (test code = 2800) 16.7 NG/ML Earnest F AustinFSH + LH [id number] 00:00:00* Test Item Value Reference Range Interpretation Comme nts FOLLICLE STIM HORMONE (test code = 2700) 5.0 IU/L LUTEINIZING HORMONE (test co de = 2776) 5.3 IU/L Earnest Boyd [id number] 00:00:00* Test Item Value Reference Range Interpretation Comme nts TSH, THIRD GENERATION (test code = 2821) 3.290 UIU/ML Earnest F [id number] 00:00:00* Test Item Value Reference Range Interpretation Comme nts PROLACTIN (test code = 2800) 16.7 NG/ML Earnest Boyd AustinFSH + LH [id number] 00:00:00* Test Item Value Reference Range Interpretation Comme nts FOLLICLE STIM HORMONE (test code = 2700) 5.0 IU/L LUTEINIZING HORMONE (test co de = 2776) 5.3 IU/L Earnest Boyd [id number] 00:00:00* Test Item Value Reference Range Interpretation Comme nts TSH, THIRD GENERATION (test code = 2821) 3.290 UIU/ML Earnest Boyd [id number] 00:00:00* Test Item Value Reference Range Interpretation Comme nts PROLACTIN (test code = 2800) 16.7 NG/ML Earnest Boyd AustinFSH + LH [id number] 00:00:00* Test Item Value Reference Range Interpretation Comme nts FOLLICLE STIM HORMONE (test code = 2700) 5.0 IU/L LUTEINIZING HORMONE (test co de = 2776) 5.3 IU/L Earnest Boyd [id number] 00:00:00* Test Item Value Reference Range Interpretation Comme nts TSH, THIRD GENERATION (test code = 2821) 3.290 UIU/ML Earnest F [id number] 00:00:00* Test Item Value Reference Range Interpretation Comme nts PROLACTIN (test code = 2800) 16.7 NG/ML Earnest F AustinFSH + LH [id number] 00:00:00* Test Item Value Reference Range Interpretation Comme nts FOLLICLE STIM HORMONE (test code = 2700) 5.0 IU/L LUTEINIZING HORMONE (test co de = 2776) 5.3 IU/L Earnest Boyd [id number] 00:00:00* Test Item Value Reference Range Interpretation Comme nts TSH, THIRD GENERATION (test code = 2821) 3.290 UIU/ML Earnest Boyd [id number] 00:00:00* Test Item Value Reference Range Interpretation Comme nts PROLACTIN (test code = 2800) 16.7 NG/ML Earnest FoyFSH + LH [id number] 00:00:00* Test Item Value Reference Range Interpretation Comme nts FOLLICLE STIM HORMONE (test code = 2700) 5.0 IU/L LUTEINIZING HORMONE (test co de = 2776) 5.3 IU/L Earnest [id number] 00:00:00* Test Item Value Reference Range Interpretation Comme nts TSH, THIRD GENERATION (test code = 2821) 3.290 UIU/ML Earnest Boyd [id number] 00:00:00* Test Item Value Reference Range Interpretation Comme nts PROLACTIN (test code = 2800) 16.7 NG/ML Earnest FoyVAGINAL PATHOGENS DNA [id number] 14:35:01* Test Item Value Reference Range Interpretation Comme nts RAFAELA SPECIES (test code = ) NEGATIVE NEGATIVE G. VAGINALIS (test code = 89329) POSITIVE NEGATIVE A T. VAGINALIS (test code = 89913) NEGATIVE NEGATIVE Note: The BD [facility] VPIII Microbial Identification Testis a DNA probe test intended for use in the detectionand identification of Rafaela species, Gardnerellavaginalis and Trichomonas vaginalis nucleic acid. UNLESS OTHERWISE INDICATED, ALL TESTING PERFORMED AT [facility] [address] [place] [address] PUPPY WALKER: JOLEEN MORENO M.D. CLIA NUMBER [id number] [place]. [id number] VAGINAL PATHOGENS DNA [id number] 00:00:00* Test Item Value Reference Range Interpretation Comme nts RAFAELA SPECIES (test code = ) NEGATIVE G. VAGINALIS (test code = 46858) POSITIVE T. VAGINALIS (test code = 38881) NEGATIVE Earnest Boyd AustinVAGINAL PATHOGENS DNA [id number] 00:00:00* Test Item Value Reference Range Interpretation Comme nts RAFAELA SPECIES (test code = 23183) NEGATIVE G. VAGINALIS (test code = 44856) POSITIVE T. VAGINALIS (test code = 47943) NEGATIVE Earnest Boyd AustinVAGINAL PATHOGENS DNA [id number] 00:00:00* Test Item Value Reference Range Interpretation Comme nts RAFAELA SPECIES (test code = 85881) NEGATIVE G. VAGINALIS (test code = 39245) POSITIVE T. VAGINALIS (test code = 67545) NEGATIVE Earnest Boyd AustinVAGINAL PATHOGENS DNA [id number] 00:00:00* Test Item Value Reference Range Interpretation Comme nts RAFAELA SPECIES (test code = 40998) NEGATIVE G. VAGINALIS (test code = 93682) POSITIVE T. VAGINALIS (test code = 64255) NEGATIVE Earnest Boyd AustinVAGINAL PATHOGENS DNA [id number] 00:00:00* Test Item Value Reference Range Interpretation Comme nts RAFAELA SPECIES (test code = 92989) NEGATIVE G. VAGINALIS (test code = 61998) POSITIVE T. VAGINALIS (test code = 37822) NEGATIVE Earnest Boyd AustinVAGINAL PATHOGENS DNA [id number] 00:00:00* Test Item Value Reference Range Interpretation Comme nts RAFAELA SPECIES (test code = 38799) NEGATIVE G. VAGINALIS (test code = 04231) POSITIVE T. VAGINALIS (test code = 83395) NEGATIVE Earnest Boyd AustinVAGINAL PATHOGENS DNA [id number] 00:00:00* Test Item Value Reference Range Interpretation Comme nts RAFAELA SPECIES (test code = 03431) NEGATIVE G. VAGINALIS (test code = 54788) POSITIVE T. VAGINALIS (test code = 89231) NEGATIVE Earnest Boyd AustinVAGINAL PATHOGENS DNA [id number] 00:00:00* Test Item Value Reference Range Interpretation Comme nts RAFAELA SPECIES (test code = 79806) NEGATIVE G. VAGINALIS (test code = 17448) POSITIVE T. VAGINALIS (test code = 72822) NEGATIVE Earnest Boyd AustinVAGINAL PATHOGENS DNA [id number] 00:00:00* Test Item Value Reference Range Interpretation Comme nts RAFAELA SPECIES (test code = 56670) NEGATIVE G. VAGINALIS (test code = 84023) POSITIVE T. VAGINALIS (test code = 25124) NEGATIVE Earnest Boyd AustinVAGINAL PATHOGENS DNA [id number] 00:00:00* Test Item Value Reference Range Interpretation Comme nts RAFAELA SPECIES (test code = 81031) NEGATIVE G. VAGINALIS (test code = 94729) POSITIVE T. VAGINALIS (test code = 00940) NEGATIVE Earnest FoyMMR AND VARICELLA [id number] 12:21:30* Test Item Value Reference Range Interpretation Comme nts RUBEOLA AB, IgG (test code = 75047) >260.0 AU/ML SEE BELOW INTERPRETATION U NITS RANGE ----- ----- NEGATIVE AU/ML <13.5 EQUIVOCAL AU/ML 13.5-16.4 NOTE: CONSIDER RETESTING IN A CLINICALLY SUITABLE PERIOD OF TIME, NO SOONER THAN 1-2 WEEKS. POSITIVE AU/ML >=16.5 MUMPS VIRUS AB, IgG (test code = 4585) 98.1 AU/ML SEE BELOW INTERPRETATION M UMPS IgG NEGATIVE . . . . . . . . . . . . AU/ML <9.0 EQUIVOCAL. . . . . . . . . . . . AU/ML 9.0-10.9 POSITIVE . . . . . . . . . . . . AU/ML >=11.0 RUBELLA ANTIBODY SCREEN (test code = 4600) 103 IU/ML SEE BELOW RUBELLA IgG INTERP (test code = 68976) REACTIVE REACTIVE INTERPRETATION U NITS RANGE NON-REACTIVE/NON-IMMUNE IU/ML <10 REACTIVE/IMMUNE IU/ML >=10 VARICELLA ZOSTER IgG (test code = 78026) 769 INDEX SEE BELOW INTERPRETATION V ZV IgG NEGATIVE . . . . . . . . . . . . INDEX <135 EQUIVOCAL. . . . . . . . . . . . INDEX 135-164 NOTE: CONSIDER RETESTING IN A CLINICALLY SUITABLE PERIOD OF TIME, NO SOONER THAN 1-2 WEEKS. POSITIVE . . . . . . . . . . . . INDEX >=165 MMR AND VARICELLA [id number] 00:00:00* Test Item Value Reference Range Interpretation Comme nts RUBEOLA AB, IgG (test code = 98624) >260.0 AU/ML MUMPS VIRUS AB, IgG (test co de = 4585) 98.1 AU/ML RUBELLA ANTIBODY SCREEN (katina t code = 4600) 103 IU/ML RUBELLA IgG INTERP (test cod e = 86512) REACTIVE VARICELLA ZOSTER IgG (test c ode = 16674) 769 INDEX Earnest F AustinMMR AND VARICELLA [id number] 00:00:00* Test Item Value Reference Range Interpretation Comme nts RUBEOLA AB, IgG (test code = 58010) >260.0 AU/ML MUMPS VIRUS AB, IgG (test co de = 4585) 98.1 AU/ML RUBELLA ANTIBODY SCREEN (katina t code = 4600) 103 IU/ML RUBELLA IgG INTERP (test cod e = 83005) REACTIVE VARICELLA ZOSTER IgG (test c ode = 04095) 769 INDEX Earnest F AustinMMR AND VARICELLA [id number] 00:00:00* Test Item Value Reference Range Interpretation Comme nts RUBEOLA AB, IgG (test code = 92200) >260.0 AU/ML MUMPS VIRUS AB, IgG (test co de = 4585) 98.1 AU/ML RUBELLA ANTIBODY SCREEN (katina t code = 4600) 103 IU/ML RUBELLA IgG INTERP (test cod e = 92155) REACTIVE VARICELLA ZOSTER IgG (test c ode = 92666) 769 INDEX Earnest Oliver AustinMMR AND VARICELLA [id number] 00:00:00* Test Item Value Reference Range Interpretation Comme nts RUBEOLA AB, IgG (test code = 24375) >260.0 AU/ML MUMPS VIRUS AB, IgG (test co de = 4585) 98.1 AU/ML RUBELLA ANTIBODY SCREEN (katina t code = 4600) 103 IU/ML RUBELLA IgG INTERP (test cod e = 29653) REACTIVE VARICELLA ZOSTER IgG (test c ode = 93119) 769 INDEX Earnest Boyd AustinMMR AND VARICELLA [id number] 00:00:00* Test Item Value Reference Range Interpretation Comme nts RUBEOLA AB, IgG (test code = 05202) >260.0 AU/ML MUMPS VIRUS AB, IgG (test co de = 4585) 98.1 AU/ML RUBELLA ANTIBODY SCREEN (katina t code = 4600) 103 IU/ML RUBELLA IgG INTERP (test cod e = 97078) REACTIVE VARICELLA ZOSTER IgG (test c ode = 45148) 769 INDEX Earnest F AustinMMR AND VARICELLA [id number] 00:00:00* Test Item Value Reference Range Interpretation Comme nts RUBEOLA AB, IgG (test code = 10454) >260.0 AU/ML MUMPS VIRUS AB, IgG (test co de = 4585) 98.1 AU/ML RUBELLA ANTIBODY SCREEN (katina t code = 4600) 103 IU/ML RUBELLA IgG INTERP (test cod e = 63111) REACTIVE VARICELLA ZOSTER IgG (test c ode = 47335) 769 INDEX Earnest FoyMMR AND VARICELLA [id number] 00:00:00* Test Item Value Reference Range Interpretation Comme nts RUBEOLA AB, IgG (test code = 93003) >260.0 AU/ML MUMPS VIRUS AB, IgG (test co de = 4585) 98.1 AU/ML RUBELLA ANTIBODY SCREEN (katina t code = 4600) 103 IU/ML RUBELLA IgG INTERP (test cod e = 09828) REACTIVE VARICELLA ZOSTER IgG (test c ode = 11580) 769 INDEX Earnest FoyMMR AND VARICELLA [id number] 00:00:00* Test Item Value Reference Range Interpretation Comme nts RUBEOLA AB, IgG (test code = 75434) >260.0 AU/ML MUMPS VIRUS AB, IgG (test co de = 4585) 98.1 AU/ML RUBELLA ANTIBODY SCREEN (katina t code = 4600) 103 IU/ML RUBELLA IgG INTERP (test cod e = 37274) REACTIVE VARICELLA ZOSTER IgG (test c ode = 83583) 769 INDEX Earnest FoyMMR AND VARICELLA [id number] 00:00:00* Test Item Value Reference Range Interpretation Comme nts RUBEOLA AB, IgG (test code = 25654) >260.0 AU/ML MUMPS VIRUS AB, IgG (test co de = 4585) 98.1 AU/ML RUBELLA ANTIBODY SCREEN (katina t code = 4600) 103 IU/ML RUBELLA IgG INTERP (test cod e = 72994) REACTIVE VARICELLA ZOSTER IgG (test c ode = 39662) 769 INDEX Earnest FoyMMR AND VARICELLA [id number] 00:00:00* Test Item Value Reference Range Interpretation Comme nts RUBEOLA AB, IgG (test code = 24990) >260.0 AU/ML MUMPS VIRUS AB, IgG (test co de = 4585) 98.1 AU/ML RUBELLA ANTIBODY SCREEN (katina t code = 4600) 103 IU/ML RUBELLA IgG INTERP (test cod e = 90442) REACTIVE VARICELLA ZOSTER IgG (test c ode = 07856) 769 INDEX Earnest Boyd AustinRUBELLA AB, [id number] 06:47:02* Test Item Value Reference Range Interpretation Comme nts RUBELLA AB, IgM (test code = 4601) 0.279 INDEX SEE BELOW RUBELLA AB, IgM INTERP (test code = 14155) NON-REACTIVE NEGATIVE INTERPRETATION U NITS RANGE ----- ----- NON-REACTIVE INDEX <0.800 BORDERLINE INDEX 0.800-0.999 REACTIVE INDEX >=1.000 UNLESS OTHERWISE INDICATED, ALL TESTING PERFORMED AT [facility] [address] [place] [address] PUPPY WALKER: JOLEEN MORENO M.D. [place] NUMBER [id number] [facility] [place]. [id number] RUBELLA AB, IgM [ADDED]2023-01-28 00:00:00* Test Item Value Reference Range Interpretation Comme nts RUBELLA AB, IgM (test code = 4601) 0.279 INDEX RUBELLA AB, IgM INTERP (test code = 90579) NON-REACTIVE Earnest Boyd AustinRUBELLA AB, IgM [ADDED]2023-01-28 00:00:00* Test Item Value Reference Range Interpretation Comme nts RUBELLA AB, IgM (test code = 4601) 0.279 INDEX RUBELLA AB, IgM INTERP (test code = 20684) NON-REACTIVE Earnest Boyd AustinRUBELLA AB, IgM [ADDED]2023-01-28 00:00:00* Test Item Value Reference Range Interpretation Comme nts RUBELLA AB, IgM (test code = 4601) 0.279 INDEX RUBELLA AB, IgM INTERP (test code = 07680) NON-REACTIVE Earnest Boyd AustinRUBELLA AB, IgM [ADDED]2023-01-28 00:00:00* Test Item Value Reference Range Interpretation Comme nts RUBELLA AB, IgM (test code = 4601) 0.279 INDEX RUBELLA AB, IgM INTERP (test code = 31267) NON-REACTIVE Earnest FoyRUBELLA AB, IgM [ADDED]2023-01-28 00:00:00* Test Item Value Reference Range Interpretation Comme nts RUBELLA AB, IgM (test code = 4601) 0.279 INDEX RUBELLA AB, IgM INTERP (test code = 80687) NON-REACTIVE Earnest Boyd AustinRUBELLA AB, IgM [ADDED]2023-01-28 00:00:00* Test Item Value Reference Range Interpretation Comme nts RUBELLA AB, IgM (test code = 4601) 0.279 INDEX RUBELLA AB, IgM INTERP (test code = 06573) NON-REACTIVE Earnest Boyd AustinRUBELLA AB, IgM [ADDED]2023-01-28 00:00:00* Test Item Value Reference Range Interpretation Comme nts RUBELLA AB, IgM (test code = 4601) 0.279 INDEX RUBELLA AB, IgM INTERP (test code = 51925) NON-REACTIVE Earnest FoyRUBELLA AB, IgM [ADDED]2023-01-28 00:00:00* Test Item Value Reference Range Interpretation Comme nts RUBELLA AB, IgM (test code = 4601) 0.279 INDEX RUBELLA AB, IgM INTERP (test code = 40415) NON-REACTIVE Earnest FoyRUBELLA AB, IgM [ADDED]2023-01-28 00:00:00* Test Item Value Reference Range Interpretation Comme nts RUBELLA AB, IgM (test code = 4601) 0.279 INDEX RUBELLA AB, IgM INTERP (test code = 93383) NON-REACTIVE Earnest FoyRUBELLA AB, IgM [ADDED]2023-01-28 00:00:00* Test Item Value Reference Range Interpretation Comme nts RUBELLA AB, IgM (test code = 4601) 0.279 INDEX RUBELLA AB, IgM INTERP (test code = 70410) NON-REACTIVE Earnest FoyHEPATIC FUNCTION PANEL (98911) (ALB,T.PRO,BILI T,BU/BC,ALT,AST,ALK PHOS)2021-11-11 04:09:16* Test Item Value Reference Range Interpretation Comme nts TOTAL BILI (test code = 1943840781) 1.2 mg/dL 0.1-1.1 H BILI UNCON (test code = 3674915645) 0.9 mg/dL 0.1-1.1 BILI CONJ (test code = 5989713520) 0.0 mg/dL 0.0-0.3 T PROTEIN (test code = 5134193411) 9.8 g/dL 6.3-8.2 H ALBUMIN (test code = 0350653343) 5.3 g/dL 3.5-5.0 H ALK PHOS (test code = 9080671886) 91 U/L 34-122 ALTv (test code = 1742-6) 21 U/L 5-35 AST(SGOT) (test code = 0712625748) 29 U/L 13-40 Lab Interpretation (test cod e = 98115-7) Abnormal [facility] METABOLIC PANEL (NA, K, CL, CO2, GLUCOSE, BUN, CREATININE, CA)2021-11-11 04:09:15* Test Item Value Reference Range Interpretation Comme nts NA (test code = 5556184694) 141 mmol/L 135-145 K (test code = 9283433163) 4.3 mmol/L 3.5-5.0 CL (test code = 7207038889) 106 mmol/L 98-108 CO2 TOTAL (test code = 0407567915) 18 mmol/L 23-31 L AGAP (test code = 3652759126) 2-16 H BUN (test code = 6563430301) 13 mg/dL 7-23 GLUCOSE (test code = 0936875908) 129 mg/dL 70-110 H CREATININE (test code = 2231504617) 0.78 mg/dL 0.50-1.04 CALCIUM (test code = 9010283806) 9.6 mg/dL 8.6-10.6 eGFR (test code = 0393055024) mL/min/1.73m2 TRI (test code = TRI) Association of [...] or abnormalities in imaging tests). Lab Interpretation (test code = 60445-9) [facility] Test Item Value Reference Range Interpretation Comme nts LIPASE (test code = 3506232767) 128 U/L 0-220 Lab Interpretation (test cod e = 89511-7) Normal [facility] WITH [id number] 04:01:59* Test Item Value Reference Range Interpretation Comme nts WBC (test code = 6690-2) See_Comment H [Automated message] The system which generated this result transmitted reference range: 4.50 - 13.50 10*3/?L. The reference range was not used to interpret this result as normal/abnormal. RBC (test code = 789-8) See_Comment H [Automated message] The system which generated this result transmitted reference range: 4.10 - 5.10 10*6/?L. The reference range was not used to interpret this result as normal/abnormal. HGB (test code = 718-7) 16.3 g/dL 12.0-16.0 H HCT (test code = 4544-3) 47.5 % 36.0-45.0 H MCV (test code = 787-2) 89.3 fL 78.0-95.0 MCH (test code = 785-6) 30.6 pg 26.0-32.0 MCHC (test code = 786-4) 34.3 g/dL 32.0-36.0 RDW-SD (test code = 64720-7) 39.0 fL 38.5-49.0 RDW-CV (test code = 788-0) 11.9 % 11.5-14.0 PLT (test code = 777-3) See_Comment [Automated message] The system which generated this result transmitted reference range: 135 - 361 10*3/?L. The reference range was not used to interpret this result as normal/abnormal. MPV (test code = 28298-7) 11.6 fL 9.4-13.3 NRBC/100 WBC (test code = 0276849215) See_Comment [Automated message] The system which generated this result transmitted reference range: 0.0 - 10.0 /100 WBCs. The reference range was not used to interpret this result as normal/abnormal. NRBC x10^3 (test code = 6307669336) <0.01 See_Comment [Automated message] The system which generated this result transmitted reference range: 10*3/?L. The reference range was not used to interpret this result as normal/abnormal. GRAN MAT (NEUT) % (test code = 770-8) 89.4 % IMM GRAN % (test code = 4850440977) 0.50 % LYMPH % (test code = 736-9) 4.8 % MONO % (test code = 5905-5) 4.6 % EOS % (test code = 713-8) 0.5 % BASO % (test code = 706-2) 0.2 % GRAN MAT x10^3(ANC) (test code = 3724776331) 15.39 10*3/uL 1.50-10.30 H IMM GRAN x10^3 (test code = 3694300068) 0.09 10*3/uL 0.00-0.06 H LYMPH x10^3 (test code = 731-0) 0.83 10*3/uL 0.70-7.40 MONO x10^3 (test code = 742-7) 0.80 10*3/uL 0.00-0.50 H EOS x10^3 (test code = 711-2) 0.09 10*3/uL 0.00-0.40 BASO x10^3 (test code = 704-7) 0.03 10*3/uL 0.00-0.10 Lab Interpretation (test code = 66517-7) [facility] [id number] 03:40:00* Test Item Value Reference Range Interpretation Comme nts POCT PREG (test code = 1605) negative On board controls acceptable with C Line (test code = 3574) present POCT PREG LOT # (test code = 3575) [id number] POCT PREG TEST DATE ( test code = 3576) 2023-04-26 Lab Interpretation (test cod e = 29549-9) [facility]2020-[facility]-27 01:39:00* Test Item Value Reference Range Interpretation Comme nts APPEARANCE (test code = 1206492516) Clear Clear COLOR (test code = 4544162727) Yellow Yellow PH (test code = 6408773105) 4.8-8.0 SP GRAVITY (test code = 9206815761) 1.003-1.030 GLU U QUAL (test code = 7754782847) Normal Normal BLOOD (test code = 7550322915) 2+ Negative A KETONES (test code = 3826432637) Negative Negative PROTEIN (test code = 2887-8) Negative Negative UROBILIN (test code = 8927528332) 4.0 mg/dL Normal A BILIRUBIN (test code = 7001531282) Negative Negative NITRITE (test code = 3122169312) Negative Negative LEUK WALT (test code = 7545983130) 250/uL Negative A RBC/HPF (test code = 9853207938) See_Comment [Automated [employer]endor[employer]opa ge] The system which generated this result transmitted reference range: 0 - 3 HPF. The reference range was not used to interpret this result as normal/abnormal. WBC/HPF (test code = 4533046642) See_Comment H [Automated [employer] ge] The system which generated this result transmitted reference range: 0 - 5 HPF. The reference range was not used to interpret this result as normal/abnormal. BACTERIA (test code = 8478931119) Negative Negative MUCOUS (test code = 4299658591) Slight Negative LPF A SQ EPITH (test code = 3126366719) HPF Lab Interpretation (test code = 78762-6) [facility]normal [facility] [id number] 01:25:00* Test Item Value Reference Range Interpretation Comme nts POCT PREG (test code = 1605) negative On board controls acceptable with C Line (test code = 3574) present POCT PREG LOT # (test code = 3575) [id number] POCT PREG TEST DATE ( test code = 3576) 02-24-2021 Lab Interpretation (test cod e = 82131-8) Normal [facility] Notes Date/Time Note Provider Source [facility]2024-07-29 00:00:00 [facility]2024-07-23 00:00:00 [facility]2024-05-08 00:00:00 [facility]2024-04-29 00:00:00 [facility]2024-04-16 00:00:00 [facility]2024-01-23 00:00:00 [facility]2023-11-21 00:00:00 [facility]2023-10-17 00:00:00 [facility]2023-08-31 00:00:00 [facility]"
[2024-09-25 23:21] LABS: Absolute Eosinophils 0.1 K/uL (0-0.5); Absolute Lymphocytes (CBC) 1.5 K/uL (0.7-4.9); Absolute Monocytes 0.7 K/uL (0.1-1.3); Absolute Neutrophil 4.3 K/uL (1.8-8.0); Basophils % 0.6 % (0-1.3); Hematocrit 43.9 % (36.0-45.0); Hemoglobin 14.8 g/dL (12.0-15.0); Lymphocytes % 22.3 % (15.3-44.8); MCHC 33.7 g/dL (32.0-36.0); MCV 86.1 fL (80-100); MPV 10.8 fL (7.6-11.3); Monocytes % 10.4 % (3.3-12.3); Neutrophils % 64.7 % (41.7-73.7); Nucleated Red Blood Cells % 0.2 % (0-0); Platelets 168 thou/uL (152-406); Red Cell Distribution Width 16.6 % (12.1-15.2)
[2024-09-25 23:32] LABS: PT Prothrombin Time 13.6 SECONDS (10.0-13.0); Protime INR 1.2
--- NOTE | 2024-09-25 23:44 | RAD REPORT ---
PROCEDURE: CT Head and Cervical Spine Without Intravenous Contrast CLINICAL INDICATION: The patient is 19 years old and is Female; fall head and trunk injury TECHNIQUE: Axial computed tomography images of the head/brain and cervical spine without intravenous contrast. Sagittal and coronal reformatted images were created and reviewed. This CT exam was performed using one or more of the following dose reduction techniques: automated exposure control, adjustmen t of the mA and/or kV according to patient size, and/or use of iterative reconstruction technique. DLP: 1635 mGy*cm COMPARISON: None. FINDINGS: BRAIN: Unremarkable. No hemorrhage. No significant white matter disease. No edema. VENTRICLES: Unremarkable. No ventriculomegaly. SKULL: No acute fracture. SINUSES: Unremarkable as visualized. No acute sinusitis. MASTOID AIR CELLS: Unremarkable as visualized. No mastoid effusion. VERTEBRAE: Reversal of the cervical lordosis. No acute fracture. DISCS/SPINAL CANAL/NEURAL FORAMINA: No acute findings. No spinal canal stenosis. SOFT TISSUES: Occipital scalp swelling/hematoma. IMPRESSION: 1. Occipital scalp swelling/hematoma. 2. Reversal of the cervical lordosis. Findings may be positional or due to muscle spasm. 3. No acute intracranial abnormality. 4. No acute cervical spine fracture or subluxation. Electronically signed by: Lazaro Munoz DO 09/25/2024 11:41 PM [facility] 9 Due to temporary technical issues with the PACS/[employer] reporting system, reports are being michelle d by the in-house radiologist without review as a courtesy to ensure prompt reporting the interpreting radiologist is fully responsible for the content of the report. Transcribed Date/Time: 09/25/2024 11:44 PM
--- NOTE | 2024-09-25 23:44 | RAD REPORT ---
PROCEDURE: CT Chest, Abdomen and Pelvis With Intravenous Contrast CLINICAL INDICATION: The patient is 19 years old and is Female; TRAUMA TECHNIQUE: Axial computed tomography images of the chest, abdomen and pelvis with intravenous contrast. Sagitt al and coronal reformatted images were created and reviewed. This CT exam was performed using one or more of the following dose reduction techniques: automated exposure control, adjustment of the m A and/or kV according to patient size, and/or use of iterative reconstruction technique. DLP: 1635 mGy*cm COMPARISON: CTA chest dated 04/04/2022. FINDINGS: CHEST: LUNGS: Unremarkable. No mass. No consolidation. PLEURAL SPACE: Unremarkable. No significant effusion. No pneumothorax. HEART: See below. ABDOMEN: LIVER: Unremarkable. No mass. GALLBLADDER AND BILE DUCTS: Unremarkable. No calcified stones. No ductal dilation. PANCREAS: Unremarkable. No ductal dilation. No mass. SPLEEN: Unremarkable. No splenomegaly. ADRENALS: Unremarkable. No mass. KIDNEYS AND URETERS: Unremarkable. No hydronephrosis. No solid mass. STOMACH AND BOWEL: Unremarkable. No obstruction. No mucosal thickening. PELVIS: APPENDIX: No findings to suggest acute appendicitis. BLADDER: Unremarkable. No mass. REPRODUCTIVE: Bilateral adnexal cysts measuring up to 4 cm on the right. CHEST, ABDOMEN and PELVIS: INTRAPERITONEAL SPACE: Unremarkable. No significant fluid collection. No free air. BONES/JOINTS: Prior median sternotomy. Cardiac postsurgical changes. No acute fracture. No dislocation. SOFT TISSUES: Unremarkable. VASCULATURE: Unremarkable. No aortic aneurysm. LYMPH NODES: Unremarkable. No enlarged lymph nodes. IMPRESSION: 1. No acute intrathoracic, abdominal or pelvic abnormality. 2. Bilateral adnexal cysts measuring up to 4 cm on the right. No follow-up imaging is recommended. Reference: JACR 2019;17(2):248-254 3. Prior median sternotomy. Cardiac postsurgical changes. Electronically signed by: Lazaro Munoz DO 09/25/2024 11:40 PM [facility] 9 Due to temporary technical issues with the PACS/[employer] reporting system, reports are being michelle d by the in-house radiologist without review as a courtesy to ensure prompt reporting the interpreting radiologist is fully responsible for the content of the report. Transcribed Date/Time: 09/25/2024 11:44 PM
[2024-09-25 23:51] LABS: Albumin 3.3 g/dL (3.4-5.0); Albumin/Globulin Ratio 0.6 (1.1-1.8); Anion Gap 8.7 mEq/L (5.0-15.0); Bilirubin Direct 0.2 mg/dL (0-0.2); Bilirubin Indirect, Calculated 0.5 mg/dL (0.2-0.8); Bilirubin Total 0.7 mg/dL (0.2-1.0); Globulin 5.1 g/dL (2.3-3.5); Magnesium 2.1 mg/dL (1.6-2.4); Potassium 3.7 mEq/L (3.5-5.1); Protein, Total 8.4 g/dL (6.4-8.2)
[2024-09-25 23:53] LABS: Troponin High Sensitivity 94.8 pg/mL (<58.9)
--- NOTE | 2024-09-26 00:11 | ER ---
Nurse's Notes [facility] Name: Yumi Sheth Age: 19 yrs Sex: Female : 2005 Arrival Date: 09/25/2024 Time: 22:44 Bed 4 Private MD: Diagnosis: Syncope, NSTEMI, scalp hematoma, closed head injury Presentation: 09/25 23:14 Chief complaint: EMS states: patient fell down stairs and hit head on concrete within al5 the hour and has a large hematoma to the back of the head. Care prior to arrival: Cervical collar in place. Mechanism of Injury: Fall down steps. Trauma event details: Injury occurred in the [facility], Injury occurred: at home. Injury occurred: September 25, 2024. 23:14 Acuity: PASCALE 2 al5 23:14 Method Of Arrival: EMS: [facility] al5 23:18 Coronavirus screen: At this time, the client does not indicate any symptoms associated al5 with coronavirus-19. Ebola Screen: No symptoms or risks identified at this time. Initial Sepsis Screen: Does the patient meet any 2 criteria? No. Patient's initial sepsis screen is negative. Does the patient have a suspected source of infection? No. Patient's initial sepsis screen is negative. Risk Assessment: Do you want to hurt yourself or someone else? Patient reports no desire to harm self or others. Note patient was awake but unresponsive, was not able to answer any questions; unable to talk. patient states she remembers everything that happened, denies alcohol or drug use. ems states she had what seemed to be similar to a syncopal episode and fell backwards down stairs and hit her head on concrete. Onset of symptoms was September 25, 2024. Triage Assessment: 23:21 General: Appears in no apparent distress. uncomfortable, slender, well groomed, well al5 developed, Behavior is calm, cooperative. General: patient feels hypersensetivity that radiates to her chest. . Pain: Complains of pain in left scapular area and right scapular area Pain currently is 4 out of 10 on a pain scale. EENT: No signs and/or symptoms were reported regarding the EENT system. Neuro: Level of Consciousness is awake, alert, obeys commands, Oriented to person, place, time, situation, Reports tingling to upper half of body and extremities. Cardiovascular: Capillary refill < 3 seconds Patient's skin is warm and dry. Respiratory: Airway is patent Respiratory effort is even, unlabored, Respiratory pattern is regular, symmetrical. GI: No signs and/or symptoms were reported involving the gastrointestinal system. Abdomen is flat, non-distended. : No signs and/or symptoms were reported regarding the genitourinary system. Derm: Skin is intact, is healthy with good turgor, Skin is pink, warm \T\ dry. normal. Musculoskeletal: No signs and/or symptoms reported regarding the musculoskeletal system. 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 - Infectious Disease History:: Denies. - Social history:: Smoking status: Patient denies any tobacco usage or history of. Screenin:18 Abuse screen: Denies threats or abuse. Denies injuries from another. Nutritional al5 screening: No deficits noted. Tuberculosis screening: No symptoms or risk factors identified. 23:24 [facility] ED Fall Risk Assessment (Adult) History of falling in the last 3 months, al5 including since admission Yes- physiologic fall (2 pts) Confusion or Disorientation No (0 pts) Intoxicated or Sedated No (0 pts) Impaired Gait No (0 pts) Mobility Assist Device Used No (0 pt) Altered Elimination No (0 pt) Score/Fall Risk Level 0 - 2 = Low Risk Oriented to surroundings, Maintained a safe environment, Hourly rounding (assess needs \T\ fall precautionary measures) done. Primary Survey: 23:16 NO uncontrolled hemorrhage observed. A: The client is awake and alert. The airway is al5 patent. The client is alert. Airway: patent, No supplemental oxygen in use on arrival. Breathing/Chest: Spontaneous respiratory effort, equal unlabored respirations, breath sounds clear bilaterally, regular pattern, symmetrical chest rise and fall. Respiratory effort: spontaneous, unlabored, Breath sounds: clear, bilaterally. Respiratory pattern: regular, Chest inspection: symmetrical rise and fall of the chest. Circulation: No external hemorrhage present. Regular and strong central pulse, skin warm/dry/normal color. Skin color: pink, Skin temperature: warm, dry. Disability Pupils are equal, round, reactive to light and accommodation. Client is alert. Exposure/Environment: All clothing and personal items were removed. Forensic evidence collection is not deemed to be indicated at this time. Items placed in patient belonging bag. There is no evidence of uncontrolled external bleeding. No obvious injuries are noted at this time. A warming method has been applied: A warm blanket has been provided to the patient. 09/26 02:18 Reassessment Alertness and Airway: Awake and alert. The airway is patent. Breathing: al5 Spontaneous respiratory effort, equal unlabored respirations, breath sounds clear bilaterally, regular pattern with symmetrical chest rise and fall. Circulation: No external hemorrhage noted. Regular and strong central pulse, skin warm/dry/normal color. Disability: Pupils Pupils are equal, round, reactive to light and accomodation. Alert. Secondary Survey: 09/25 23:17 HEENT: No deficits noted. Gastrointestinal: No deficits noted. : No deficits noted. al5 Musculoskeletal: No deficits noted. Assessment: 22:46 Reassessment: patient taken to CT with this nurse and [place] [facility] crew. al5 23:24 Reassessment: see triage assessment. al5 09/26 00:37 Reassessment: gave report to tasia del toro at [facility]. al5 01:28 Reassessment: Patient appears in no apparent distress at this time. No changes from al5 previously documented assessment. Patient and/or family updated on plan of care and expected duration. Pain level reassessed. Patient is alert, oriented x 3, equal unlabored respirations, skin warm/dry/pink. 02:16 Reassessment: Patient appears in no apparent distress at this time. No changes from al5 previously documented assessment. Patient and/or family updated on plan of care and expected duration. Pain level reassessed. Patient is alert, oriented x 3, equal unlabored respirations, skin warm/dry/pink. Vital Signs: 09/25 23:17 BP 140 / 94; Pulse 98; Resp 16; Temp 98; Pulse Ox 98% on R/A; Weight 56.7 kg; Height 5 al5 ft. 2 in. ; Pain 4/10; 23:30 BP 133 / 83; Pulse 99; Resp 18; Pulse Ox 97% on R/A; al5 09/26 00:00 BP 143 / 80; Pulse 103; Resp 18; Pulse Ox 96% on R/A; al5 00:30 BP 136 / 71; Pulse 98; Resp 18; Pulse Ox 95% on R/A; al5 01:00 BP 127 / 79; Pulse 101; Resp 17; Pulse Ox 95% on R/A; al5 01:30 BP 132 / 75; Pulse 101; Resp 17; Pulse Ox 95% on R/A; al5 02:00 BP 130 / 74; Pulse 100; Resp 18; Pulse Ox 96% on R/A; al5 02:30 BP 121 / 70; Pulse 90; Resp 16; Pulse Ox 95% on R/A; al5 09/25 23:17 Body Mass Index 22.86 (56.70 kg, 157.48 cm) al5 09/25 23:17 Pain Scale: Adult al5 Serge Coma Score: 09/25 23:17 Eye Response: spontaneous(4). Motor Response: obeys commands(6). Verbal Response: al5 oriented(5). Total: 15. Trauma Score (Adult): 23:17 Eye Response: spontaneous(1); Verbal Response: oriented(1); Motor Response: obeys al5 commands(2); Systolic BP: > 89 mm Hg(4); Respiratory Rate: 10 to 29 per min(4); Homer Score: 15; Trauma Score: 12 ED Course: 22:44 Patient arrived in ED. jj6 22:45 Melita Avilez MD is Attending Physician. sp3 22:54 Inserted saline lock: 20 gauge in right antecubital area, using aseptic technique. vc1 Blood collected. Flushed with 10 mL NS. 23:02 Basic Metabolic Panel Sent. vk 23:02 CBC with Diff Sent. vk 23:02 Troponin HS Sent. vk 23:02 PT-INR Sent. vk 23:02 NT PRO-BNP Sent. vk 23:02 Magnesium Sent. vk 23:02 LFT's Sent. vk 23:12 Head C Spine Mpr Wo Con In Process Unspecified. EDMS 23:12 Chest Abdomen Pelvis W Cont In Process Unspecified. EDMS 23:13 Gretchen Pandya, RN is Primary Nurse. al5 23:15 Triage completed. al5 23:18 Patient has correct armband on for positive identification. Placed in gown. Bed in low al5 position. Call light in reach. Side rails up X2. Adult w/ patient. Patient maintains SpO2 saturation greater than 95% on room air. 23:23 Initial lab(s) drawn, by me, sent to lab. vk 23:25 No provider procedures requiring assistance completed. al5 23:25 Thermoregulation: warm blanket given to patient. al5 23:25 Provided Education on: plan of care. al5 23:25 Arm band placed on right wrist. Patient placed in the treatment room, in view of staff al5 members, on monitoring engineer, on pulse oximetry. 09/26 00:46 Transfer initiated \T\0010. Patient accepted to [facility] er \T\ [address] rodriguez. report called to [phone]. [place] to transport. 02:42 Patient transferred, IV remains in place. al5 Administered Medications: 02:10 Drug: morphine IVP or IV 2 mg IVP once over 4 mins Route: IVP; Infused Over: 4 mins; vc1 Site: right antecubital; 02:43 Follow up: Response: No adverse reaction; Pain is decreased al5 02:11 Drug: Ondansetron IVP 4 mg IVP once; over 2 minutes Route: IVP; Site: right antecubital;vc1 02:43 Follow up: Response: No adverse reaction al5 Medication: 09/25 23:25 VIS not applicable for this client. al5 Intake: 23:17 n/a al5 Outcome: 09/26 00:10 ER care complete, transfer ordered by . sp3 02:17 Patient's length of stay in the Emergency Department was greater than 2 hours. patient al5 being transferred to [facility] length of stay extended due to 02:43 Transferred by ground EMS [place] [facility] to [facility], al5 02:43 Condition: stable 02:43 Instructed on the need for transfer, 02:43 Patient left the ED. al5 Signatures: Dispatcher [employer] EDMS Melita Avilez MD MD sp3 Berkley Mendoza6 Miranda Wheeler RN RN vc1 Mari Brito Amanda, RN RN al5 Sindhu Adair Corrections: (The following items were deleted from the chart) 09/25 23:20 23:14 Chief complaint: EMS states: patient fell down stairs and hit head on concrete al5 within the hour al5
--- NOTE | 2024-09-26 00:11 | EDPHYS ---
Physician Documentation [facility] Name: Yumi Sheth Age: 19 yrs Sex: Female : 2005 Arrival Date: 09/25/2024 Time: 22:44 Bed 4 Private MD: ED Physician Melita Avilez HPI: 09/25 23:09 This 19 yrs old Female presents to ER via Unassigned with complaints of Fall sp3 Injury. 23:09 19-year-old female with history of congenital heart disease with multiple surgeries at [address], Pulmonary Stenosis, double outlet right ventricle, now presents to the ED with chief complaint head injury and trunk injury after syncopal episode while going up steps with subsequent fall. Family activated EMS who found patient dazed with scalp hematoma and pain all over her body. Patient does not feel like passing out currently. She denies any ongoing or current chest pain, shortness of breath, abdominal pain, vomiting, diarrhea, or any other signs or symptoms on ROS at this time.. 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 - Infectious Disease History:: Denies. - Social history:: Smoking status: Patient denies any tobacco usage or history of. ROS: 23:10 Constitutional: Negative for fever, chills, and weight loss, Eyes: Negative for injury, sp3 pain, redness, and discharge, Neck: Negative for injury, pain, and swelling, Respiratory: Negative for shortness of breath, cough, wheezing, and pleuritic chest pain, Abdomen/GI: Negative for abdominal pain, nausea, vomiting, diarrhea, and constipation, Back: Negative for injury and pain, MS/Extremity: Negative for injury and deformity, Skin: Negative for injury, rash, and discoloration, Neuro: Negative for headache, weakness, numbness, tingling, and seizure, Psych: Negative for depression, anxiety, suicide ideation, homicidal ideation, and hallucinations, Allergy/Immunology: Negative for hives, rash, and allergies, Endocrine: Negative for neck swelling, polydipsia, polyuria, polyphagia, and marked weight changes, 23:10 All other systems are negative, Exam: 23:10 Constitutional: This is a well developed, well nourished patient who is awake, alert, sp3 and in no acute distress. Eyes: Pupils equal round and reactive to light, extra-ocular motions intact. Lids and lashes normal. Conjunctiva and sclera are non-icteric and not injected. Cornea within normal limits. Periorbital areas with no swelling, redness, or edema. ENT: Nares patent. No nasal discharge, no septal abnormalities noted. External auditory canals are clear. Oropharynx with no redness, swelling, or masses, exudates, or evidence of obstruction, uvula midline. Mucous membranes moist. Neck: Trachea midline, no thyromegaly or masses palpated, and no cervical lymphadenopathy. Supple, full range of motion without nuchal rigidity, or vertebral point tenderness. No Meningismus. Chest/axilla: Normal chest wall appearance and motion. Nontender with no deformity. No lesions are appreciated. Cardiovascular: Regular rate and rhythm with a normal S1 and S2. No gallops, murmurs, or rubs. Normal PMI, no JVD. No pulse deficits. Respiratory: Lungs have equal breath sounds bilaterally, clear to auscultation and percussion. No rales, rhonchi or wheezes noted. No increased work of breathing, no retractions or nasal flaring. Back: No spinal tenderness. No costovertebral tenderness. Full range of motion. Skin: Warm, dry with normal turgor. Normal color with no rashes, no lesions, and no evidence of cellulitis. MS/ Extremity: Pulses equal, no cyanosis. Neurovascular intact. Full, normal range of motion. Neuro: Awake and alert, GCS 15, oriented to person, place, time, and situation. Cranial nerves II-XII grossly intact. Motor strength 5/5 in all extremities. Sensory grossly intact. Cerebellar exam normal. Normal gait. Psych: Awake, alert, with orientation to person, place and time. Behavior, mood, and affect are within normal limits. 23:10 Abdomen/GI: Musculoskeletal pain over anterior chest and bilateral flanks. No extremity pain noted., Vital Signs: 23:17 BP 140 / 94; Pulse 98; Resp 16; Temp 98; Pulse Ox 98% on R/A; Weight 56.7 kg; Height 5 al5 ft. 2 in. ; Pain 10; 23:30 BP 133 / 83; Pulse 99; Resp 18; Pulse Ox 97% on R/A; al5 09/26 00:00 BP 143 / 80; Pulse 103; Resp 18; Pulse Ox 96% on R/A; al5 00:30 BP 136 / 71; Pulse 98; Resp 18; Pulse Ox 95% on R/A; al5 01:00 BP 127 / 79; Pulse 101; Resp 17; Pulse Ox 95% on R/A; al5 01:30 BP 132 / 75; Pulse 101; Resp 17; Pulse Ox 95% on R/A; al5 02:00 BP 130 / 74; Pulse 100; Resp 18; Pulse Ox 96% on R/A; al5 02:30 BP 121 / 70; Pulse 90; Resp 16; Pulse Ox 95% on R/A; al5 09/25 23:17 Body Mass Index 22.86 (56.70 kg, 157.48 cm) al5 09/25 23:17 Pain Scale: Adult al5 Serge Coma Score: 09/25 23:17 Eye Response: spontaneous(4). Motor Response: obeys commands(6). Verbal Response: al5 oriented(5). Total: 15. Trauma Score (Adult): 23:17 Eye Response: spontaneous(1); Verbal Response: oriented(1); Motor Response: obeys al5 commands(2); Systolic BP: > 89 mm Hg(4); Respiratory Rate: 10 to 29 per min(4); Serge Score: 15; Trauma Score: 12 MDM: 22:45 Medical Screening Exam initiated sp3 23:11 Data reviewed: vital signs, nurses notes, old medical records, lab test result(s), EKG, sp3 radiologic studies. ED course: 19-year-old female with congenital heart disease with syncopal episode while going up stairs with subsequent fall with head injury and trunk injury. Differential diagnosis for syncope includes orthostatic hypotension, other cardiac process, structural heart disease. Differential diagnosis from the trauma includes closed head injury, scalp hematoma, intracranial hemorrhage, other intrathoracic or intra-abdominal injury. Workup will include CT scan of the head, C-spine, chest abdomen pelvis and a trauma gram protocol, EKG, general labs and supportive care. Disposition pending workup and patient course.. 09/26 00:08 ED course: Troponin elevated at 94. EKG demonstrates leftward axis ST depressions sp3 immediately with incomplete right bundle branch block. CT scan traumagram negative for any significant abnormality except scalp hematoma. Patient still having mild chest pain. She is still seen at [facility]. We will attempt transfer there first.. 09/25 22:46 Order name: Test, Urine; Complete Time: 00:35 sp3 09/25 22:46 Order name: Basic Metabolic Panel; Complete Time: 23:54 sp3 09/25 22:46 Order name: CBC with Diff; Complete Time: 23:49 sp3 09/25 22:46 Order name: LFT's; Complete Time: 23:54 sp3 09/25 22:46 Order name: Magnesium; Complete Time: 23:54 sp3 09/25 22:46 Order name: NT PRO-BNP; Complete Time: 23:54 sp3 09/25 22:46 Order name: PT-INR; Complete Time: 23:49 sp3 09/25 22:46 Order name: Troponin HS; Complete Time: 23:54 sp3 09/25 23:00 Order name: Head C Spine Mpr Wo Con EDMS 09/25 23:01 Order name: Chest Abdomen Pelvis W Cont EDMS 09/25 22:46 Order name: Cardiac monitoring; Complete Time: 23:27 sp3 09/25 22:46 Order name: EKG - Nurse/Tech; Complete Time: 23:44 sp3 09/25 22:46 Order name: IV Saline Lock; Complete Time: 23:02 sp3 09/25 22:46 Order name: Labs collected and sent; Complete Time: 23:02 sp3 09/25 22:46 Order name: O2 Per Protocol; Complete Time: 23:02 sp3 09/25 22:46 Order name: O2 Sat Monitoring; Complete Time: 23:02 sp3 Administered Medications: 02:10 Drug: morphine IVP or IV 2 mg IVP once over 4 mins Route: IVP; Infused Over: 4 mins; vc1 Site: right antecubital; 02:43 Follow up: Response: No adverse reaction; Pain is decreased al5 02:11 Drug: Ondansetron IVP 4 mg IVP once; over 2 minutes Route: IVP; Site: right antecubital;vc1 02:43 Follow up: Response: No adverse reaction al5 Disposition Summary: 09/26/24 00:10 Transfer Ordered Notes: Transfer Location: [facility] sp3 Reason: Higher level of care sp3 Condition: Stable sp3 Problem: an acute exacerbation sp3 Symptoms: have worsened sp3 Accepting Physician: [facility](09/26/24 02:43) al5 Diagnosis - Syncope, NSTEMI, scalp hematoma, closed head injury sp3 Discharge Instructions: - Discharge Summary Sheet hw Forms: - Medication Reconciliation Form sp3 - SBAR form hw Signatures: Dispatcher [employer] EDMelita Martin MD MD sp3 Miranda Wheeler RN RN vc1 Gretchen Pandya RN RN al5 Corrections: (The following items were deleted from the chart) 09/25 22:46 22:46 Test, Urine+UC.LAB.BRZ ordered. EDMS EDMS 22:46 22:46 BASIC METABOLIC PANEL+C.LAB.BRZ ordered. EDMS EDMS 22:46 22:46 CBC+H.LAB.BRZ ordered. EDMS EDMS 22:46 22:46 HEPATIC FUNCTION+C.LAB.BRZ ordered. EDMS EDMS 22:46 22:46 MAGNESIUM+C.LAB.BRZ ordered. EDMS EDMS 22:46 22:46 PROBNP+C.LAB.BRZ ordered. EDMS EDMS 22:46 22:46 PROTIME (+INR)+COAG.LAB.BRZ ordered. EDMS EDMS 22:46 22:46 Troponin High Sensitivity+C.LAB.BRZ ordered. EDMS EDMS 22:47 22:46 Head C Spine CAP W Con+CT.RAD.BRZ ordered. EDMS EDMS 09/26 02:43 00:10 [facility] sp3 al5
[2024-09-26 00:34] LABS: Specific Gravity 1.013 (1.005-1.030)
[2024-09-26] MEDS ORDERED: MORPHINE 2 MG/ML SYR ONE (02:01)
[2024-09-26] MEDS ORDERED: ONDANSETRON 4 MG/2 ML VIAL ONE (02:05)
[2024-09-26 02:50] VITALS: TEMP 98
[2024-09-26 03:02] VITALS: BP 121/70; O2SAT 95
--- NOTE | 2024-09-27 12:07 | EKG ---
Test Date: 2024-09-25 Test Time: 23:39:35 Wheel Aligner: NATASHA MEASUREMENT RESULTS: Intervals: Rate: 103 DC: 150 QRSD: 94 QT: 382 QTc: 500 [place]: P: 12 DC: 150 QRS: -84 T: -31 INTERPRETIVE STATEMENTS: Sinus tachycardia Possible Left atrial enlargement Incomplete right bundle branch block Left anterior fascicular block Possible Lateral infarct, age undetermined ST & T wave abnormality, consider anterior ischemia Abnormal ECG Compared to ECG 04/03/2022 21:52:06 Sinus arrhythmia no longer present Ventricular premature complex(es) no longer present Short DC interval no longer present Left ventricular hypertrophy no longer present ST (T wave) deviation still present Possible ischemia still present Electronically Signed On 09-27-24 12:03:37 FIRST COAT OPERATOR by Po Vee
== END 2024-09-26 02:43 | disposition designated cancer center or children's hospital (05) ==
LOC: ER 22:44
DX: I21.4 Non-ST elevation (NSTEMI) myocardial infarction (principal); S00.03XA Contusion of scalp, initial encounter; W10.8XXA Fall (on) (from) other stairs and steps, initial encounter; Z79.82 Long term (current) use of aspirin
CPT/HCPCS: 93005; 85025; 80048; 36415; 83735; 81025; 85610; 80076; 84484; 83880; 70450; 72125; 71260; 74177; 96375; 96374; 99285; Q9967; J2270; J2405